=== PATIENT | male | born 1935 | race Caucasian/White ===

== ENCOUNTER 2016-10-17 13:42 | Inpatient (IN) | payer OTHER ==
--- NOTE | 2016-10-17 14:43 | PDOC ---
History of Present Illness - General Chief Complaint: Rectal Bleed Stated Complaint: RECTAL BLEEDING Time Seen by Provider: 10/17/16 14:12 History Source: Patient - History of Present Illness Timing/Duration: reports: constant Past History - Past Medical History Allergies/Adverse Reactions: Allergies Allergy/AdvReac Type Severity Reaction Status Date / Time No Known Allergies Allergy Verified 10/17/16 13:54 Home Medications: Ambulatory Orders Allopurinol [Zyloprim -] 100 mg PO BID 12/28/12 Chlorthalidone [Hygroton -] 25 mg PO BID 12/28/12 Dabigatran Etexilate Mesylate [Pradaxa -] 75 mg PO BID 12/28/12 Metoprolol Succinate [Toprol XL -] 25 mg PO BID 12/28/12 [place]-3 Acid Ethyl Esters [Lovaza -] 4,000 mg PO BID 12/28/12 Atenolol [Tenormin -] 25 mg PO BID 04/03/15 Anemia: No Asthma: No Cancer: Yes (SKIN, PROSTATE) Cardiac Disorders: Yes (ATRIAL FIBRILLATION) CVA: No COPD: No CHF: No Dementia: No Diabetes: No GI Disorders: No Disorders: Yes HTN: Yes Hypercholesterolemia: Yes Liver Disease: No Seizures: No Thyroid Disease: No - Surgical History Appendectomy: Yes Cholecystectomy: Yes - Psycho/Social/Smoking Cessation Hx Suicidal Ideation: No Smoking History: Former smoker Have you smoked in the past 12 months: No If you are a former smoker, when did you quit?: 20 YRS AGO Information on smoking cessation initiated: No Hx Alcohol Use: No Drug/Substance Use Hx: No Substance Use Type: None Review of Systems - Review of Systems Constitutional: No: Chills, Fever Respiratory: No: Shortness of Breath Cardiac (ROS): No: Palpitations ABD/GI: Yes: Blood Streaked Bowels. No: Constipated, Diarrhea, Nausea, Vomiting , Tarry Stools Neurological: No: Dizziness *Physical Exam - Vital Signs Last Vital Signs Temp Pulse Resp BP Pulse Ox 97.5 F L 69 20 91/54 99 10/17/16 13:55 10/17/16 13:55 10/17/16 13:55 10/17/16 13:55 10/17/16 13:55 - Physical Exam General Appearance: Yes: Appropriately Dressed. No: Apparent Distress HEENT: positive: Normal Voice Neck: positive: Supple Respiratory/Chest: positive: Lungs Clear, Normal Breath Sounds. negative: Respiratory Distress Cardiovascular: positive: Regular Rate, S1, S2 Gastrointestinal/Abdominal: positive: Soft, Other (BRBPR on exam, no large hemorrhoid). negative: Tender Extremity: positive: Normal Inspection Integumentary: positive: Dry, Warm Neurologic: positive: Fully Oriented, Alert, Normal Mood/Affect ED Treatment Course - LABORATORY CBC & Chemistry Diagram: 10/17/16 16:00 10/17/16 14:36 Medical Decision Making - Medical Decision Making 10/17/16 14:32 80-year-old male history of hypertension, GERD, pancreatic cyst, hemorrhoid complaining of bright red blood per rectum. Patient reports that since yesterday he has had constant bright red blood per rectum soiling his underwear. Suspects that bleeding could be coming from his hemorrhoid. Denies any rectal pain, swelling, or constipation. No dizziness, weakness, shortness of breath, fever, chills, nausea or vomiting. Patient states he has had GIB in the past, though not this severe. See exam GIB On pradaxa for afib Well maggy but hypotensive in ED w/ sig BRBPR on exam, no melena -[address] -IVF -labs including coag and T&S -GI c/s (known to Dr Marshall) -PMD -admit 10/17/16 15:42 HGB 8.9, baseline 12-13. Also had NAYANA w/ Cr of 3.3. Case discussed with , who states pt has diverticular disease and hemorrhoids. Recommend stopping Pradaxa, making patient NPO and transfusing 2 units of blood. Aware that patient's creatinine is 3.3, and so unable to get CTA. Aware that Dr Gates was made aware of pt and that pt admitted to MD. Dr Marshall to continue to follow as consult 10/17/16 16:01 INR>4. Confirmed with Dr Gates that pt is only on pradaxa and not on coumadin or any other AC. 10/17/16 18:01 Dr Marshall rec repeating INR prior to vit K. Pt enroute upstairs at this time. ED nurse contacted floor nurse w/ update *DC/Admit/Observation/Transfer Diagnosis at time of Disposition: GIB (gastrointestinal bleeding) Qualifiers: GI bleed type/associated pathology: unspecified gastrointestinal hemorrhage type Qualified Code(s): K92.2 - Gastrointestinal hemorrhage, unspecified ARF (acute renal failure) Qualifiers: Acute renal failure type: unspecified Qualified Code(s): N17.9 - Acute kidney failure, unspecified - Discharge Dispostion Condition at time of disposition: Fair Admit: Yes - Referrals
[2016-10-17 14:55] LABS: BASOPHIL 1.1 % (0-2.0); EOSINOPHIL 2.3 % (0-4.5); MCH 33.5 pg (25.7-33.7); MCHC 32.8 g/dl (32.0-35.9); MEAN CELL VOLUME 102.1 fl (80-96); MEAN PLT VOLUME 9.5 fl (7.5-11.1); NEUTROPHILS 69.3 % (42.8-82.8); PLATELET COUNT 142 K/MM3 (134-434); RDW 14.7 % (11.9-15.9); WHITE BLOOD COUNT 6.9 K/mm3 (4.0-10.0)
[2016-10-17] MEDS ORDERED: SODIUM CHLORIDE 500 ML IV STA ×2 (14:56→18:40)
[2016-10-17 15:22] LABS: ALBUMIN 3.2 g/dl (3.4-5.0); ALK PHOS 101 U/L (45-117); ANION GAP 10 (8-16); BILIRUBIN,TOTAL 0.9 mg/dL (0.2-1.0); CALCIUM 8.3 mg/dL (8.5-10.1); CO2 23 mmol/L (21-32); CREATININE 3.3 mg/dL (0.7-1.3); GLUCOSE,RANDOM 89 mg/dL (74-106); SGOT/AST 17 U/L (15-37); SGPT/ALT 22 U/L (12-78); TOT PROT 5.7 g/dl (6.4-8.2)
[2016-10-17 15:47] LABS: PROTHROMBIN TIME (PATIENT) 49.3 SEC (9.98-11.88)
[2016-10-17 15:51] LABS: INR 4.35 (0.82-1.09)
[2016-10-17 16:09] LABS: BASOPHIL 0.9 % (0-2.0); EOSINOPHIL 1.6 % (0-4.5); MCH 32.9 pg (25.7-33.7); MCHC 32.4 g/dl (32.0-35.9); MEAN CELL VOLUME 101.5 fl (80-96); MEAN PLT VOLUME 9.5 fl (7.5-11.1); NEUTROPHILS 71.7 % (42.8-82.8); PLATELET COUNT 144 K/MM3 (134-434); RDW 15.3 % (11.9-15.9); WHITE BLOOD COUNT 6.7 K/mm3 (4.0-10.0)
--- NOTE | 2016-10-17 16:14 | PDOC ---
*Physical Exam - Vital Signs Last Vital Signs Temp Pulse Resp BP Pulse Ox 97.5 F L 74 16 160/90 97 10/17/16 13:55 10/17/16 15:23 10/17/16 15:23 10/17/16 15:33 10/17/16 15:23 ED Treatment Course - LABORATORY CBC & Chemistry Diagram: 10/17/16 16:00 10/17/16 14:36 - ADDITIONAL ORDERS Additional order review: Laboratory Results 10/17/16 10/17/16 10/17/16 14:36 14:36 14:36 INR 4.35 H* D Sodium 145 Potassium 3.6 Chloride 112 H Carbon Dioxide 23 Anion Gap 10 BUN 34 H D Creatinine 3.3 H D Creat Clearance w eGFR 18.08 Random Glucose 89 Calcium 8.3 L Total Bilirubin 0.9 D AST 17 D ALT 22 D Alkaline Phosphatase 101 Total Protein 5.7 L Albumin 3.2 L Blood Type O POSITIVE Antibody Screen Negative Crossmatch See Detail 10/17/16 14:36 RBC 2.65 L D MCV 102.1 H MCHC 32.8 RDW 14.7 MPV 9.5 Neutrophils % 69.3 Lymphocytes % 19.9 Monocytes % 7.4 Eosinophils % 2.3 Basophils % 1.1 - Medications Given in the ED: ED Medications Discontinued Medications Generic Name Dose Route Start Last Admin Trade Name Freq PRN Reason Stop Dose Admin Sodium Chloride 500 mls @ 1,000 mls/hr 10/17/16 14:56 10/17/16 15:33 Normal Saline - IV 10/17/16 15:25 1,000 mls/hr ASDIR STA Administration Medical Decision Making - Medical Decision Making 10/17/16 18:38 Dr Marshall in ED, wants pt admitted to tele. BP 90s/50s, IVF and blood in progress *DC/Admit/Observation/Transfer Diagnosis at time of Disposition: GIB (gastrointestinal bleeding) Qualifiers: GI bleed type/associated pathology: unspecified gastrointestinal hemorrhage type Qualified Code(s): K92.2 - Gastrointestinal hemorrhage, unspecified ARF (acute renal failure) Qualifiers: Acute renal failure type: unspecified Qualified Code(s): N17.9 - Acute kidney failure, unspecified - Discharge Dispostion Condition at time of disposition: Fair Admit: Yes Decision to Admit order Date/Time: Decision to Admit Order Category Date Time Status Decision to Admit to Hospital Routine Admission 10/17/16 15:46 Active - Referrals - Patient Instructions - Post Discharge Activity
[2016-10-17] MEDS ORDERED: PHYTONADIONE 10 MG/1 ML AMP IVPB ONE (17:34)
[2016-10-17 17:49] LABS: PLATELET ESTIMATE SLT DECREASED (NORMAL)
--- NOTE | 2016-10-17 18:58 | CON.GI ---
Consult Consult Specialty:: GASTROENTEROLOGY Referred by:: ER Reason for Consultation:: RECTAL BLEEDING - History of Present Illness Chief Complaint: RECTAL BLEEDING History of Present Illness: 80 YEAR OLD MALE WITH HISTORY OF COLON POLYPS, SEVERE DIVERTICULOSIS AND IPMN OF THE PANCREAS WHO HAS HAD MULTIPLE COLONOSCOPIES AND GOOS SURVEILLANCE ADMITTED WITH RECTAL BLEEDING. HE WAS MILDLY HYPOTENSIVE IN THE ED BUT THIS RESOLVED QUICKLY WITH FLUID AND PRBC'S. HE DENIES ANY VOMITING OF BLOOD, OR ABDOMINAL PAIN. HIS SON STATES THAT HE HAS BEEN BLEEDING FOR ABOUT 7 DAYS ON AND OFF . SON STATES THAT LATELY HE HAS BEEN A BIT CONFUSED AT TIMES. THIS IS NEW. I SAW JOSE JUAN IN FEBRUARY OF 2016 AND HE WAS ALERT AND APPROPRIATE. HE IS ON PRADAXA FOR AFIB. HE IS NOT ON COUMADIN. HIS INR WAS 4.35. REPEAT IS PENDING. HIS COLONOSCOPY REVEALED POLYPS IN THE PAST. HE HAS SEVERE WIDE MOUTH DIVERTICULOSIS IN THE LEFT COLON AND LARGE INTERNAL HEMORRHOIDS. PATIENT WAS SEEN HE WAS BEING TRANSFERRED TO A GENERAL MEDICAL FLOOR. I HAVE ASKED THAT HE BE TRANSFERRED TO A MONITORED SETTING. - History Source History Provided By: Patient, Family Member Limitations to Obtaining History: Clinical Condition - Past Medical History Cardio/Vascular: Yes: AFIB Pulmonary: Yes: COPD Gastrointestinal: Yes: Diverticulosis, Other (IPMN PANCREAS) Renal/: Yes: Renal Inusuff Musculoskeletal: Yes: Osteoarthritis Rheumatology: Yes: Gout - Alcohol/Substance Use Hx Alcohol Use: No - Smoking History Smoking history: Former smoker Have you smoked in the past 12 months: No If you are a former smoker, when did you quit?: 20 YRS AGO Home Medications - Allergies Allergies/Adverse Reactions: Allergies Allergy/AdvReac Type Severity Reaction Status Date / Time No Known Allergies Allergy Verified 10/17/16 13:54 - Home Medications Home Medications: Ambulatory Orders Allopurinol [Zyloprim -] 100 mg PO BID 12/28/12 Chlorthalidone [Hygroton -] 25 mg PO BID 12/28/12 Dabigatran Etexilate Mesylate [Pradaxa -] 75 mg PO BID 12/28/12 Metoprolol Succinate [Toprol XL -] 25 mg PO BID 12/28/12 [place]-3 Acid Ethyl Esters [Lovaza -] 4,000 mg PO BID 12/28/12 Atenolol [Tenormin -] 25 mg PO BID 04/03/15 Family Disease History - Family Disease History Family Disease History: CA: Mother (PANCREAS) Review of Systems - Review of Systems Constitutional: reports: No Symptoms Eyes: reports: No Symptoms HENT: reports: No Symptoms Neck: reports: No Symptoms Cardiovascular: reports: No Symptoms Respiratory: reports: No Symptoms Gastrointestinal: reports: Rectal Bleeding Genitourinary: reports: No Symptoms Breasts: reports: No Symptoms Reported Musculoskeletal: reports: No Symptoms Integumentary: reports: No Symptoms Neurological: reports: No Symptoms Endocrine: reports: No Symptoms Hematology/Lymphatic: reports: No Symptoms Psychiatric: reports: No Symptoms Physical Exam-GI Vital Signs: Vital Signs Temperature 97.4 F L 10/17/16 17:38 Pulse Rate 73 10/17/16 17:38 Respiratory Rate 16 10/17/16 17:38 Blood Pressure 92/55 10/17/16 17:38 O2 Sat by Pulse Oximetry (%) 99 10/17/16 17:38 Constitutional: Yes: Well Nourished, Calm Eyes: Yes: Conjunctiva Clear HENT: Yes: Normocephalic Neck: Yes: Supple Gastrointestinal Inspection: Yes: WNL ...Auscultate: Yes: Normoactive Bowel Sounds ...Palpate: Yes: Soft ...Rectal Exam: Yes: Guaiac Positive, Other (MAROON STOOL) Extremities: Yes: WNL Neurological: Yes: Alert, Oriented, Other (NEW FORGETFULLNESS) Labs: CBC, BMP 10/17/16 16:00 INR, PTT INR 4.35 (0.82-1.09) H* D 10/17/16 14:36 Problem List - Problems (1) Diverticular hemorrhage Assessment/Plan: PROBABLE DIVERTICULAR BLEEDING. HOPEFULLY WILL STOP ON ITS OWN DOES MOST OF THESE DIVERTICULAR BLEEDS. REPEAT INR AND IF STILL ELEVATED GIVE VIT K AND ONE UNIT FFP. TRANSFUSE TO HGB OF GREATER THAN OR EQUAL TO 9. NPO FOR NOW. HOLD PRADAXA. CARDIOLOGY CONSULT AND PMD HAS BEEN NOTIFIED. SEND TO MONITORED SETTING. DR MIX COVERING FOR ME UNTIL THURSDAY. [place] CRUZ MD Code(s): K57.31 - DVRTCLOS OF LG INT W/O PERFORATION OR ABSCESS W BLEEDING (2) GIB (gastrointestinal bleeding) Code(s): K92.2 - GASTROINTESTINAL HEMORRHAGE, UNSPECIFIED Qualifiers: GI bleed type/associated pathology: unspecified gastrointestinal hemorrhage type Qualified Code(s): K92.2 - Gastrointestinal hemorrhage, unspecified (3) ARF (acute renal failure) Code(s): N17.9 - ACUTE KIDNEY FAILURE, UNSPECIFIED Qualifiers: Acute renal failure type: unspecified Qualified Code(s): N17.9 - Acute kidney failure, unspecified (4) Afib Code(s): I48.91 - UNSPECIFIED ATRIAL FIBRILLATION
[2016-10-17 19:22] LABS: PROTHROMBIN TIME (PATIENT) 46.7 SEC (9.98-11.88)
[2016-10-17 19:28] LABS: INR 4.12 (0.82-1.09)
[2016-10-17 19:47] LABS: TROPONIN I < 0.02 ng/ml (0.00-0.05)
[2016-10-17] MEDS ORDERED: PHYTONADIONE 10 MG/1 ML AMP ONE (19:51)
[2016-10-17 21:42] LABS: BASOPHIL 0.8 % (0-2.0); EOSINOPHIL 1.7 % (0-4.5); MCH 32.3 pg (25.7-33.7); MCHC 32.9 g/dl (32.0-35.9); MEAN CELL VOLUME 98.1 fl (80-96); MEAN PLT VOLUME 9.2 fl (7.5-11.1); NEUTROPHILS 65.2 % (42.8-82.8); PLATELET COUNT 141 K/MM3 (134-434); WHITE BLOOD COUNT 6.6 K/mm3 (4.0-10.0)
[2016-10-18] MEDS ORDERED: PANTOPRAZOLE SODIUM 40 MG in SODIUM CHLORIDE 100 ML IVPB ONE (00:13)
[2016-10-18] MEDS ORDERED: PANTOPRAZOLE SODIUM 100 ML IVPB ONE (00:14)
[2016-10-18 06:33] LABS: MCH 32.2 pg (25.7-33.7); MCHC 33.2 g/dl (32.0-35.9); MEAN CELL VOLUME 97.2 fl (80-96); PLATELET COUNT 134 K/MM3 (134-434); RDW 17.4 % (11.9-15.9); WHITE BLOOD COUNT 6.8 K/mm3 (4.0-10.0)
[2016-10-18 06:47] LABS: INR 3.44 (0.82-1.09); PROTHROMBIN TIME (PATIENT) 38.8 SEC (9.98-11.88)
[2016-10-18 06:57] LABS: ALK PHOS 96 U/L (45-117); ANION GAP 8 (8-16); BILIRUBIN,TOTAL 1.4 mg/dL (0.2-1.0); CALCIUM 8.3 mg/dL (8.5-10.1); CO2 21 mmol/L (21-32); CREATININE 2.9 mg/dL (0.7-1.3); GLUCOSE,RANDOM 89 mg/dL (74-106); SGOT/AST 14 U/L (15-37); SGPT/ALT 20 U/L (12-78); TOT PROT 5.5 g/dl (6.4-8.2)
[2016-10-18] MEDS: METOPROLOL TARTRATE 25 MG TABLET (FP) PO SCH ×2 (10:29→21:01)
--- NOTE | 2016-10-18 14:37 | PN ---
GI Progress Note Subjective: GI F/U NOTE FOR DR CRUZ PT SEEN IN ER WITH SON AT BEDSIDE NO BLEEDING OVERNIGHT AND NONE TODAY WELL NO BM X 3 DAYS NO PAIN/N/F/C/S/V FEELS HUNGRY GOT PRBC'S YESTERDAY AWAITING TELE BED - Objective Vital Signs: Vital Signs Temperature 97.9 F 10/18/16 06:45 Pulse Rate 92 H 10/18/16 12:33 Respiratory Rate 18 10/18/16 12:33 Blood Pressure 118/86 10/18/16 12:33 O2 Sat by Pulse Oximetry (%) 97 10/18/16 12:33 Constitutional: Well Nourished, No Distress, Calm Eyes: Yes: WNL HENT: Yes: WNL (+BS/ SOFT/NT NO M/R/G) Labs: CBC, BMP 10/18/16 06:16 10/18/16 06:16 INR, PTT INR 3.44 (0.82-1.09) H 10/18/16 06:16 Assessment/Plan 80 M WITH [employer] PROBLEMS ADMIT WITH HEMATOCHEZIA OVER 1 WEEK ON A/C WITH PRADAXA SON REPORTS LARGE SCALE BLEEDING HX OF PROFOUND DIVERTICULAR DISEASE AND COLON POLYPS HAD COLON LAST 1 YEAR AGO NOW, BLEED CLINICALLY RESOLVED NO BRBPR X 16 HOURS HGB STABLE AND IMPROVED OFF A/C SUSPECT DIVERTIC BLEEDING START CLEARS AND OBSERVE F/U H/H IF STABLE, ADVANCE DIET SLOWLY MD DOMINGUEZ
--- NOTE | 2016-10-18 16:26 | CON.CARD ---
Consult Consult Specialty:: Cardiology Referred by:: Dr. Gates Reason for Consultation:: Cardiac evaluation - History of Present Illness Chief Complaint: GI bleed History of Present Illness: Patient is an 80 year old male with underlying history of hypertension, GERD, CODP, pancreatic cyst, history of diverticulosis and persistent atrial fibrillation on Pradaxa and failed synchronized cardioversion who presents with bright blood per rectum soiling his underwear and pants. He has history of hemorrhoids. He denies chest pain, SOB or palpitations. He denies paroxysmal nocturnal dyspnea or orthopnea. He denies fever or chills. He denies headache or lightheadedness. He denies nausea, vomiting, diarrhea or abdominal pain. Cardiology consultation was called for further evaluation. - History Source History Provided By: Patient, Family Member Limitations to Obtaining History: No Limitations - Past Medical History Cardio/Vascular: Yes: AFIB, HTN Pulmonary: Yes: COPD Gastrointestinal: Yes: Diverticulosis, Other (IPMN PANCREAS) Renal/: Yes: Renal Inusuff Musculoskeletal: Yes: Osteoarthritis Rheumatology: Yes: Gout - Alcohol/Substance Use Hx Alcohol Use: No - Smoking History Smoking history: Former smoker Have you smoked in the past 12 months: No If you are a former smoker, when did you quit?: 20 YRS AGO Home Medications - Allergies Allergies/Adverse Reactions: Allergies Allergy/AdvReac Type Severity Reaction Status Date / Time No Known Allergies Allergy Verified 10/17/16 13:54 - Home Medications Home Medications: Ambulatory Orders Allopurinol [Zyloprim -] 100 mg PO BID 12/28/12 Chlorthalidone [Hygroton -] 25 mg PO BID 12/28/12 Dabigatran Etexilate Mesylate [Pradaxa -] 75 mg PO BID 12/28/12 Metoprolol Succinate [Toprol XL -] 25 mg PO BID 12/28/12 [place]-3 Acid Ethyl Esters [Lovaza -] 4,000 mg PO BID 12/28/12 Atenolol [Tenormin -] 25 mg PO BID 04/03/15 Family Disease History - Family Disease History Family Disease History: CA: Mother (PANCREAS) Review of Systems - Review of Systems Constitutional: denies: Chills, Fever Cardiovascular: denies: Chest Pain, Palpitations, Shortness of Breath Respiratory: denies: Cough, Hemoptysis, Orthopnea, PND, SOB, SOB on Exertion Gastrointestinal: reports: Rectal Bleeding. denies: Abdominal Pain, Constipation, Diarrhea, Melena, Nausea, Vomiting Neurological: denies: Dizziness, Headache, Seizure, Syncope Vital Signs: Vital Signs Temperature 97.9 F 10/18/16 06:45 Pulse Rate 92 H 10/18/16 12:33 Respiratory Rate 18 10/18/16 12:33 Blood Pressure 118/86 10/18/16 12:33 O2 Sat by Pulse Oximetry (%) 97 10/18/16 12:33 Neck: Yes: Supple Respiratory: Yes: CTA Bilaterally Gastrointestinal: Yes: Normal Bowel Sounds, Soft. No: Tenderness Cardiovascular: Yes: Pulse Irregular JVD: No Carotid Bruit: No PMI: Non-Displaced Heart Sounds: Yes: S1, S2 Murmur: Yes: Systolic Murmur, Grade 1 Edema: No - Other Data Labs, Other Data: CBC, BMP 10/18/16 06:16 10/18/16 06:16 INR, PTT INR 3.44 (0.82-1.09) H 10/18/16 06:16 Troponin, BNP 10/17/16 18:30 Troponin I < 0.02 Atrial fibrillation Assessment/Plan 1. Rectal bleed with underlying history of diverticular disease and hemorrhoids and polyps 2. Persistent atrial fibrillation on NOAC 3. Hypertension 4. COPD 5. CKD PLAN: 1. Pradaxa held for now. Further decision is to follow 2. Continue Metoprolol 3. Follow H/H. Transfuse PRBC as needed 4. GI input noted Further plans are to follow Ras Cleveland MD
[2016-10-18 18:04] VITALS: BMI 23.0
[2016-10-18 19:32] LABS: URINE APPEARANCE CLEAR; URINE BILIRUBIN NEGATIVE (NEGATIVE); URINE COLOR LTYELLOW; URINE GLUCOSE (UA) NEGATIVE (NEGATIVE); URINE KETONE NEGATIVE (NEGATIVE); URINE LEUK ESTERASE NEGATIVE (NEGATIVE); URINE NITRITE NEGATIVE (NEGATIVE); URINE PROTEIN NEGATIVE (NEGATIVE); URINE UROBILINOGEN NEGATIVE E.U./dl (0.2-1.0)
[2016-10-18 19:34] LABS: URINE BLOOD 3+ (NEGATIVE)
[2016-10-18 19:35] LABS: URINE HYALINE CAST 1 /lpf; URINE MUCUS RARE; URINE RBC 49 /hpf (0-3); URINE WBC 3 /hpf (3-5)
[2016-10-18] MEDS ORDERED: PHYTONADIONE 5 MG TABLET PO ONE (20:00)
[2016-10-18] MEDS: BACITRACIN 15 GM TUBE TOPICAL OINTMENT TP SCH (21:01)
--- NOTE | 2016-10-18 22:26 | HP ---
Admitting History and Physical - Primary Care Physician PCP: Neville Gates - Admission Chief Complaint: Bleeing from rectum since yesterday. History of Present Illness: Pt states that started to bleed per rectum since yesterday and came to ER; pt w/ o abd pain, N, V, nose bleed. Pt w/o fever, chills, cough, dysuria. Pt was seen in AM in ER, pt's son is at bed side. History Source: Patient - Past Medical History Cardiovascular: Yes: AFIB (on AC) Pulmonary: Yes: COPD Gastrointestinal: Yes: Diverticulosis, Other (IPMN PANCREAS) Renal/: Yes: Renal Inusuff Musculoskeletal: Yes: Osteoarthritis Rheumatology: Yes: Gout - Smoking History Smoking history: Former smoker Have you smoked in the past 12 months: No If you are a former smoker, when did you quit?: 20 YRS AGO - Alcohol/Substance Use Hx Alcohol Use: No Home Medications - Allergies Allergies/Adverse Reactions: Allergies Allergy/AdvReac Type Severity Reaction Status Date / Time No Known Allergies Allergy Verified 10/17/16 13:54 - Home Medications Home Medications: Ambulatory Orders Allopurinol [Zyloprim -] 100 mg PO BID 12/28/12 Chlorthalidone [Hygroton -] 25 mg PO BID 12/28/12 Dabigatran Etexilate Mesylate [Pradaxa -] 75 mg PO BID 12/28/12 Metoprolol Succinate [Toprol XL -] 25 mg PO BID 12/28/12 [place]-3 Acid Ethyl Esters [Lovaza -] 4,000 mg PO BID 12/28/12 Atenolol [Tenormin -] 25 mg PO BID 04/03/15 Family Disease History - Family Disease History Family Disease History: CA: Mother (PANCREAS) Review of Systems - Review of Systems Constitutional: denies: Chills, Fever Eyes: denies: Blurred Vision, Double Vision HENT: denies: Difficult Swallowing, Ear Discharge, Ear Pain, Throat Pain Cardiovascular: denies: Chest Pain, Edema, Palpitations, Shortness of Breath Respiratory: denies: Cough, SOB, Wheezing Gastrointestinal: denies: Abdominal Pain, Nausea, Vomiting Genitourinary: reports: Discharge. denies: Burning, Dysuria, Flank Pain Musculoskeletal: denies: Back Pain, Joint Swelling Neurological: denies: Change in LOC, Change in Speech, Confusion, Numbness Endocrine: denies: Excessive Sweating, Intolerance to Cold Physical Examination Vital Signs: Vital Signs Temperature 98.4 F 10/18/16 17:58 Pulse Rate 100 H 10/18/16 17:58 Respiratory Rate 18 10/18/16 18:11 Blood Pressure 126/69 10/18/16 17:58 O2 Sat by Pulse Oximetry (%) 96 10/18/16 18:11 Constitutional: Yes: No Distress, Calm Eyes: Yes: Conjunctiva Clear, EOM Intact, PERRL HENT: No: Epistaxis, Rhinnorhea Neck: No: Trachea Midline, Lymphadenopathy Cardiovascular: Yes: Regular Rate and Rhythm, S1, S2 Respiratory: Yes: Regular, CTA Bilaterally. No: Rales Gastrointestinal: Yes: Normal Bowel Sounds, Soft. No: Tenderness ...Rectal Exam: Yes: Deferred Renal/: No: CVA Tenderness - Left, CVA Tenderness - Right Musculoskeletal: No: Back Pain, Joint Stiffness, Joint Swelling Edema: No Integumentary: No: Jaundice, Rash Neurological: Yes: Alert, Oriented Psychiatric: Yes: Alert, Oriented Labs: CBC, BMP 10/18/16 06:16 10/18/16 06:16 Problem List - Problems (1) Afib Code(s): I48.91 - UNSPECIFIED ATRIAL FIBRILLATION (2) GIB (gastrointestinal bleeding) Code(s): K92.2 - GASTROINTESTINAL HEMORRHAGE, UNSPECIFIED Qualifiers: GI bleed type/associated pathology: unspecified gastrointestinal hemorrhage type Qualified Code(s): K92.2 - Gastrointestinal hemorrhage, unspecified (3) Acute on chronic renal failure Code(s): N17.9 - ACUTE KIDNEY FAILURE, UNSPECIFIED N18.9 - CHRONIC KIDNEY DISEASE, UNSPECIFIED (4) Diverticulosis Code(s): K57.90 - DVRTCLOS OF INTEST, PART UNSP, W/O PERF OR ABSCESS W/O BLEED (5) Hypertension Code(s): I10 - ESSENTIAL (PRIMARY) HYPERTENSION Assessment/Plan AC on hold GI consult appreciated Cardio consult To f/u H/H; pt might need PRBC, Vit K AM labs
[2016-10-19 07:31] LABS: BASOPHIL 1.2 % (0-2.0); EOSINOPHIL 3.7 % (0-4.5); MCH 32.6 pg (25.7-33.7); MCHC 33.8 g/dl (32.0-35.9); MEAN CELL VOLUME 96.5 fl (80-96); MEAN PLT VOLUME 9.3 fl (7.5-11.1); NEUTROPHILS 62.6 % (42.8-82.8); PLATELET COUNT 132 K/MM3 (134-434); RDW 17.6 % (11.9-15.9); WHITE BLOOD COUNT 6.7 K/mm3 (4.0-10.0)
--- NOTE | 2016-10-19 08:27 | CONSULT ---
Consult - text type - Consultation Consultation Note: Renal Consult for NAYANA on CKD This is a 80 year old Gentleman with PMhx of CKD stage 3 (b/l Cr 1.8), Afib on pradaxa, Hypertension, Diverticulosis, Pancreatic Cyst who presented with rectal bleed and found to have acute anemia in setting of GI bleed and NAYANA with BUN/Cr of 34/3.3. Pt states that he was bleeding for 1 day but was not feeling well for several days. Denies any NSAID use, no recent contrast exposure, no recent Abx use, no flank pain, rash, fever, chills, N/V/D. Pt did have kidney stones in the past, last episode was 1 year ago. No confusion, lethargy or weakness. s/p RPBC transfusion yesterday. PMhx: as above Allergies: NKDA Family Hx: NC Social Hx: + smoker, + ETOH use ROS: as per HPI, all other pertinent ros negative Home Meds: Home Medications Medication Instructions Recorded Allopurinol [Zyloprim -] 100 mg PO BID 12/28/12 Chlorthalidone [Hygroton -] 25 mg PO BID 12/28/12 Dabigatran Etexilate Mesylate 75 mg PO BID 12/28/12 [Pradaxa -] Metoprolol Succinate [Toprol XL -] 25 mg PO BID 12/28/12 [place]-3 Acid Ethyl Esters [Lovaza 4,000 mg PO BID 12/28/12 -] Atenolol [Tenormin -] 25 mg PO BID 04/03/15 Vital Signs Temperature 98.2 F 10/19/16 06:00 Pulse Rate 102 H 10/19/16 06:00 Respiratory Rate 18 10/19/16 06:00 Blood Pressure 112/71 10/19/16 06:00 O2 Sat by Pulse Oximetry (%) 98 10/18/16 21:00 Intake & Output 10/16/16 10/17/16 10/18/16 10/19/16 23:59 23:59 23:59 23:59 Intake Total 500 300 200 Balance 500 300 200 Weight 220 lb 170 lb Gen: NAD, awake and alert HEENT: NC/AT, MMM, No JVD CVS: RRR, No M/R Lungs: CTA, no rales or wheeze Abd: soft NT/ND Ext: No edema, clubbing or cyanosis : No bladder distension Neuro: AAOx3, no focal defects CBC, BMP 10/19/16 06:25 Laboratory Tests 10/18/16 06:16 Sodium 145 Potassium 3.9 Chloride 116 H Carbon Dioxide 21 Anion Gap 8 BUN 32 H Creatinine 2.9 H Creat Clearance w eGFR 20.99 Total Bilirubin 1.4 H D AST 14 L Albumin 3.0 L Current Medications Bacitracin (Bacitracin -) 1 applic TP BID [facility] Last Admin: 10/18/16 21:01 Dose: 1 applic Metoprolol Tartrate (Lopressor -) 25 mg PO BID [facility] Last Admin: 10/18/16 21:01 Dose: 25 mg Pantoprazole Sodium (Protonix 40mg Ivpb (Pre-Docked)) 40 mg IVPB DAILY [facility] A/P 80 year old Gentleman with PMhx of CKD stage 3 (b/l Cr 1.8), Afib on pradaxa, Hypertension, Diverticulosis, Pancreatic Cyst who presented with rectal bleed and found to have acute anemia in setting of GI bleed and NAYANA with BUN/Cr of 34/ 3.3. #Non-oliguric NAYANA on CKD stage 3 Etiology likely renal hypoperfusion in setting of anemia and hypotension and diuretic use vs allopurinol related injury (less likely) FeUrea was 31.89% indicating preserved tubular function pt without any significant proteinuria Check renal US to r/o obstruction Start isotonic saline at 83cc per hour x 24 hours trend BUN/Cr Dose all meds for Cr Cl less then 20 avoid RUBY/ARB, IV contrast and other nephrotoxins #GI bleed mangement as per GI avoid phosphate based enemas as part of any bowel prep Transfuse as needed #Afib on pradaxa cardiology following off A/C #Hypertension BP at goal on metoprolol avoid hypotension in this patient #Anemia transfuse as needed Thank you will Follow Bismark Grier DO
[2016-10-19] MEDS ORDERED: SODIUM CHLORIDE 1,000 ML IV SCH ×2 (08:45→23:00)
[2016-10-19 09:01] LABS: ANION GAP 10 (8-16); BILIRUBIN,TOTAL 1.4 mg/dL (0.2-1.0); CALCIUM 8.2 mg/dL (8.5-10.1); CO2 21 mmol/L (21-32); CREATININE 2.4 mg/dL (0.7-1.3); GLUCOSE,RANDOM 72 mg/dL (74-106); MAGNESIUM 2.1 mg/dL (1.8-2.4); PHOSPHOROUS 3.5 mg/dL (2.5-4.9); SGOT/AST 22 U/L (15-37); SGPT/ALT 21 U/L (12-78); TOT PROT 5.2 g/dl (6.4-8.2)
[2016-10-19 09:02] LABS: ALK PHOS 102 U/L (45-117)
[2016-10-19] MEDS: PANTOPRAZOLE SODIUM 40 MG/100 ML PRE-DOCKED IVPB SCH (09:39)
[2016-10-19] MEDS: BACITRACIN 15 GM TUBE TOPICAL OINTMENT TP SCH ×2 (09:39→21:33)
[2016-10-19] MEDS: METOPROLOL TARTRATE 25 MG TABLET (FP) PO SCH ×2 (09:39→21:33)
--- NOTE | 2016-10-19 09:47 | PN ---
Progress Note, Physician Chief Complaint: Not in distress this am History of Present Illness: Patient was seen and examined. Awake and alert. Chart was reviewed Denies chest pain, SOB or palpitations - Current Medication List Current Medications: Active Medications Bacitracin (Bacitracin -) 1 applic TP BID [facility] Last Admin: 10/19/16 09:39 Dose: 1 applic Sodium Chloride (Normal Saline -) 1,000 mls @ 83 mls/hr IV ASDIR [facility] Last Admin: 10/19/16 09:38 Dose: 83 mls/hr Metoprolol Tartrate (Lopressor -) 25 mg PO BID [facility] Last Admin: 10/19/16 09:39 Dose: 25 mg Pantoprazole Sodium (Protonix 40mg Ivpb (Pre-Docked)) 40 mg IVPB DAILY [facility] Last Admin: 10/19/16 09:39 Dose: 40 mg - Objective Vital Signs: Vital Signs Temperature 98.2 F 10/19/16 06:00 Pulse Rate 102 H 10/19/16 06:00 Respiratory Rate 18 10/19/16 06:00 Blood Pressure 112/71 10/19/16 06:00 O2 Sat by Pulse Oximetry (%) 98 10/18/16 21:00 Neck: Yes: Supple Cardiovascular: Yes: Pulse Irregular, S1, S2 Respiratory: Yes: CTA Bilaterally Gastrointestinal: Yes: Normal Bowel Sounds, Soft. No: Tenderness Edema: No Additional Findings/Remarks: - Review of Systems Constitutional: denies: Chills, Fever Cardiovascular: denies: Chest Pain, Palpitations, Shortness of Breath Respiratory: denies: Cough, Hemoptysis, Orthopnea, PND, SOB, SOB on Exertion Gastrointestinal: reports: Rectal Bleeding. denies: Abdominal Pain, Constipation, Diarrhea, Melena, Nausea, Vomiting Neurological: denies: Dizziness, Headache, Seizure, Syncope Labs: CBC, BMP 10/19/16 06:25 10/19/16 06:25 INR, PTT INR 3.44 (0.82-1.09) H 10/18/16 06:16 Problem List - Problems (1) Acute on chronic renal failure Code(s): N17.9 - ACUTE KIDNEY FAILURE, UNSPECIFIED N18.9 - CHRONIC KIDNEY DISEASE, UNSPECIFIED (2) Afib Code(s): I48.91 - UNSPECIFIED ATRIAL FIBRILLATION Qualifiers: Atrial fibrillation type: persistent Qualified Code(s): I48.1 - Persistent atrial fibrillation (3) Diverticular hemorrhage Code(s): K57.31 - DVRTCLOS OF LG INT W/O PERFORATION OR ABSCESS W BLEEDING (4) GIB (gastrointestinal bleeding) Code(s): K92.2 - GASTROINTESTINAL HEMORRHAGE, UNSPECIFIED Qualifiers: GI bleed type/associated pathology: unspecified gastrointestinal hemorrhage type Qualified Code(s): K92.2 - Gastrointestinal hemorrhage, unspecified (5) Hypertension Code(s): I10 - ESSENTIAL (PRIMARY) HYPERTENSION Qualifiers: Hypertension type: essential hypertension Qualified Code(s): I10 - Essential (primary) hypertension Assessment/Plan 1. Rectal bleed with underlying history of diverticular disease and hemorrhoids and polyps 2. Persistent atrial fibrillation on NOAC - [id number] score of 3-4 3. Hypertension 4. COPD 5. CKD PLAN: 1. Pradaxa held for now. Further decision is to follow. Ideally will need to restart perhaps Eliquis 2.5 mg BID (age > 80 and cr > 1.5) 2. Continue Metoprolol 3. Follow H/H. Transfuse PRBC as needed - so far stable 4. GI follow up Further plans are to follow Ras Cleveland MD
--- NOTE | 2016-10-19 14:10 | PN ---
Progress Note, Physician History of Present Illness: Pt w/o SOB, CP, palp, abd pain, rectal bleed. Pt with hallucinations; pt's family at bed side, states that he has it for a least couple of weeks, on and off. - Current Medication List Current Medications: Active Medications Bacitracin (Bacitracin -) 1 applic TP BID [facility] Last Admin: 10/19/16 09:39 Dose: 1 applic Sodium Chloride (Normal Saline -) 1,000 mls @ 83 mls/hr IV ASDIR [facility] Last Admin: 10/19/16 09:38 Dose: 83 mls/hr Metoprolol Tartrate (Lopressor -) 25 mg PO BID [facility] Last Admin: 10/19/16 09:39 Dose: 25 mg Pantoprazole Sodium (Protonix 40mg Ivpb (Pre-Docked)) 40 mg IVPB DAILY [facility] Last Admin: 10/19/16 09:39 Dose: 40 mg - Objective Vital Signs: Vital Signs Temperature 98.0 F 10/19/16 09:44 Pulse Rate 104 H 10/19/16 09:44 Respiratory Rate 19 10/19/16 09:44 Blood Pressure 111/64 10/19/16 09:44 O2 Sat by Pulse Oximetry (%) 98 10/18/16 21:00 Constitutional: Yes: No Distress, Calm Neck: Yes: Tenderness Cardiovascular: Yes: Pulse Irregular, S1, S2 Respiratory: Yes: Regular, CTA Bilaterally Gastrointestinal: Yes: Normal Bowel Sounds, Soft. No: Palpable Mass, Tenderness Edema: No Neurological: Yes: Alert, Oriented (to place, familly. Pt is confused about the reason that brought him to ER, even when explained/ oriented), Cran Nerves II- XII Intact. No: Facial Droop Labs: CBC, BMP 10/19/16 06:25 10/19/16 06:25 INR, PTT INR 3.44 (0.82-1.09) H 10/18/16 06:16 Problem List - Problems (1) GIB (gastrointestinal bleeding) Code(s): K92.2 - GASTROINTESTINAL HEMORRHAGE, UNSPECIFIED Qualifiers: GI bleed type/associated pathology: unspecified gastrointestinal hemorrhage type Qualified Code(s): K92.2 - Gastrointestinal hemorrhage, unspecified (2) Acute on chronic renal failure Code(s): N17.9 - ACUTE KIDNEY FAILURE, UNSPECIFIED N18.9 - CHRONIC KIDNEY DISEASE, UNSPECIFIED (3) Afib Code(s): I48.91 - UNSPECIFIED ATRIAL FIBRILLATION Qualifiers: Atrial fibrillation type: persistent Qualified Code(s): I48.1 - Persistent atrial fibrillation (4) Diverticulosis Code(s): K57.90 - DVRTCLOS OF INTEST, PART UNSP, W/O PERF OR ABSCESS W/O BLEED (5) Hypertension Code(s): I10 - ESSENTIAL (PRIMARY) HYPERTENSION Qualifiers: Hypertension type: essential hypertension Qualified Code(s): I10 - Essential (primary) hypertension (6) Altered mental status Code(s): R41.82 - ALTERED MENTAL STATUS, UNSPECIFIED Qualifiers: Altered mental status type: disorientation Qualified Code(s): R41.0 - Disorientation, unspecified (7) Hallucinations Code(s): R44.3 - HALLUCINATIONS, UNSPECIFIED Assessment/Plan AC on hold GI consult appreciated Cardio consult appreciated To f/u H/H; pt received 2 unit PRBC, 1 unit FFP, 2.5 mg zina K (PO). Neuro consult Phychiatry Consult Head CT scan- to R/O CVA Case was reviewed with family, all questions were answered. AM labs
--- NOTE | 2016-10-19 14:53 | PN ---
GI Progress Note Subjective: GI F/U FOR DR CRUZ: PT DOWN IN CT SCAN OF BRAIN BY REPORT OF NURSE: NO FURTHER BLEEDING NO C/O NO BRBPR TOLERATING CLEARS - Objective Vital Signs: Vital Signs Temperature 97.9 F 10/19/16 14:42 Pulse Rate 79 10/19/16 14:42 Respiratory Rate 18 10/19/16 14:42 Blood Pressure 118/72 10/19/16 14:42 O2 Sat by Pulse Oximetry (%) 95 10/19/16 09:00 Labs: CBC, BMP 10/19/16 06:25 10/19/16 06:25 INR, PTT INR 3.44 (0.82-1.09) H 10/18/16 06:16 Assessment/Plan ACUTE HEMATOCHEZIA/LGIB----. PRESUMED DIVERTICULAR CLINICALLY RESOLVED HGB STABLE AND UP TO 10 ADVANCE DIET/ OBSERVE F/U H/H IN AM DR CRUZ TO F/U 10/20 MD DOMINGUEZ
[2016-10-20 08:19] LABS: MCH 33.1 pg (25.7-33.7); MEAN CELL VOLUME 97.3 fl (80-96); MEAN PLT VOLUME 9.5 fl (7.5-11.1); PLATELET COUNT 128 K/MM3 (134-434); RDW 17.1 % (11.9-15.9); WHITE BLOOD COUNT 6.7 K/mm3 (4.0-10.0)
[2016-10-20 08:20] LABS: MCH 33.2 pg (25.7-33.7); MCHC 34.3 g/dl (32.0-35.9); MEAN CELL VOLUME 96.5 fl (80-96); MEAN PLT VOLUME 9.2 fl (7.5-11.1); NEUTROPHILS 63.5 % (42.8-82.8); PLATELET COUNT 130 K/MM3 (134-434); WHITE BLOOD COUNT 6.6 K/mm3 (4.0-10.0)
[2016-10-20 08:27] LABS: INR 1.59 (0.82-1.09); PROTHROMBIN TIME (PATIENT) 17.7 SEC (9.98-11.88)
[2016-10-20 08:53] LABS: ALBUMIN 2.7 g/dl (3.4-5.0); ANION GAP 9 (8-16); CALCIUM 8.2 mg/dL (8.5-10.1); CO2 23 mmol/L (21-32); GLUCOSE,RANDOM 79 mg/dL (74-106); PHOSPHOROUS 3.1 mg/dL (2.5-4.9); SGOT/AST 18 U/L (15-37)
[2016-10-20 08:57] LABS: ALK PHOS 92 U/L (45-117); CREATININE 1.9 mg/dL (0.7-1.3); SGPT/ALT 18 U/L (12-78); TOT PROT 4.7 g/dl (6.4-8.2)
--- NOTE | 2016-10-20 09:07 | PN ---
Progress Note, Physician History of Present Illness: No further hematochezia. - Current Medication List Current Medications: Active Medications Bacitracin (Bacitracin -) 1 applic TP BID [facility] Last Admin: 10/19/16 21:33 Dose: 1 applic Sodium Chloride (Normal Saline -) 1,000 mls @ 50 mls/hr IV ASDIR [facility] Last Admin: 10/19/16 23:00 Dose: 50 mls/hr Metoprolol Tartrate (Lopressor -) 25 mg PO BID [facility] Last Admin: 10/19/16 21:33 Dose: 25 mg Pantoprazole Sodium (Protonix 40mg Ivpb (Pre-Docked)) 40 mg IVPB DAILY [facility] Last Admin: 10/19/16 09:39 Dose: 40 mg - Objective Vital Signs: Vital Signs Temperature 98.1 F 10/20/16 06:00 Pulse Rate 94 H 10/20/16 06:00 Respiratory Rate 20 10/20/16 06:00 Blood Pressure 109/76 10/20/16 06:00 O2 Sat by Pulse Oximetry (%) 95 10/19/16 21:00 Constitutional: Yes: No Distress, Calm Neck: Yes: Supple Cardiovascular: Yes: Pulse Irregular Respiratory: Yes: Regular, Diminished Gastrointestinal: Yes: Normal Bowel Sounds, Soft Edema: No Labs: CBC, BMP 10/20/16 06:00 INR, PTT INR 1.59 (0.82-1.09) H D 10/20/16 06:00 Assessment/Plan 1. Rectal bleed presumed diverticular etiology since resolved 2. Persistent atrial fibrillation off NOAC - [id number] score of 3-4 3. Hypertension 4. COPD 5. CKD PLAN: 1. Pradaxa held for now. Ideally will need to restart perhaps Eliquis 2.5 mg BID (age > 80 and cr > 1.5) once hemostasis assured in 2 weeks 2. Continue Metoprolol 25 bid 3. Follow H/H. Transfuse PRBC as needed - so far stable 4. GI follow up, d/c planning
--- NOTE | 2016-10-20 10:51 | PN ---
GI Progress Note Subjective: GASTROENTEROLOGY STOPPED BLEEDING ON SOLID DIET RECEIVED PRBC/FFP/VITK NO COMPLAINTS TODAY - Objective Vital Signs: Vital Signs Temperature 98.1 F 10/20/16 06:00 Pulse Rate 94 H 10/20/16 06:00 Respiratory Rate 20 10/20/16 06:00 Blood Pressure 109/76 10/20/16 06:00 O2 Sat by Pulse Oximetry (%) 95 10/19/16 21:00 Constitutional: No Distress Eyes: Yes: Conjunctiva Clear HENT: Yes: Atraumatic Neck: Yes: Supple Cardiovascular: Yes: Regular Rate and Rhythm Respiratory: Yes: Regular Gastrointestinal Inspection: Yes: WNL ...Auscultate: Yes: Normoactive Bowel Sounds ...Palpate: Yes: Soft Extremities: Yes: WNL Labs: CBC, BMP 10/20/16 06:00 10/20/16 06:00 INR, PTT INR 1.59 (0.82-1.09) H D 10/20/16 06:00 Problem List - Problems (1) Diverticular hemorrhage Assessment/Plan: BLEEDING HAS STOPPED HIGH FIBER DIET METAMUCIL OR BENEFIBER BID RESUME ANTIPLATELET THERAPY IN 2 WEEKS SWITCH TO ELIQUIS 2.5 MG PO BID PER CARDIOLOGY NOT SURE WHY INR WAS CLOSE TO 5 ON ADMISSION, NO LIVER DYSFUNCTION--- FAMILY SHOULD REVIEW HIS MEDS AT HOME. RIVER CRUZ MD Code(s): K57.31 - DVRTCLOS OF LG INT W/O PERFORATION OR ABSCESS W BLEEDING (2) GIB (gastrointestinal bleeding) Code(s): K92.2 - GASTROINTESTINAL HEMORRHAGE, UNSPECIFIED Qualifiers: GI bleed type/associated pathology: unspecified gastrointestinal hemorrhage type Qualified Code(s): K92.2 - Gastrointestinal hemorrhage, unspecified (3) ARF (acute renal failure) Code(s): N17.9 - ACUTE KIDNEY FAILURE, UNSPECIFIED Qualifiers: Acute renal failure type: unspecified Qualified Code(s): N17.9 - Acute kidney failure, unspecified (4) Afib Code(s): I48.91 - UNSPECIFIED ATRIAL FIBRILLATION Qualifiers: Atrial fibrillation type: persistent Qualified Code(s): I48.1 - Persistent atrial fibrillation
[2016-10-20] MEDS: BACITRACIN 15 GM TUBE TOPICAL OINTMENT TP SCH ×2 (11:07→21:03)
[2016-10-20] MEDS: METOPROLOL TARTRATE 25 MG TABLET (FP) PO SCH ×2 (11:08→21:01)
[2016-10-20] MEDS: PANTOPRAZOLE SODIUM 40 MG/100 ML PRE-DOCKED IVPB SCH (11:08)
--- NOTE | 2016-10-20 11:40 | CON.PSY ---
Psychiatry Consult Chief Complaint: psych in my life.a never seen I dont have any psych problems. Symptoms: reports: Anxiety - Previous Psychiatric Treatment Outpatient: None Inpatient: None - Previous Substance Abuse Treatment Outpatient: None Inpatient: None - Current Medications Current Medications: Active Medications Bacitracin (Bacitracin -) 1 applic TP BID [facility] Last Admin: 10/20/16 11:07 Dose: 1 applic Sodium Chloride (Normal Saline -) 1,000 mls @ 50 mls/hr IV ASDIR [facility] Last Admin: 10/19/16 23:00 Dose: 50 mls/hr Metoprolol Tartrate (Lopressor -) 25 mg PO BID [facility] Last Admin: 10/20/16 11:08 Dose: 25 mg Pantoprazole Sodium (Protonix 40mg Ivpb (Pre-Docked)) 40 mg IVPB DAILY [facility] Last Admin: 10/20/16 11:08 Dose: 40 mg Psyllium Hydrophilic Mucilloid (Metamucil (Sugar-Free) -) 5.85 gm PO BID [facility] - Allergies Allergies: Allergies Allergy/AdvReac Type Severity Reaction Status Date / Time No Known Allergies Allergy Verified 10/17/16 13:54 - Current Living Status Usual Living Arrangement: With Spouse - Current Mental Status Evaluation Appearance: Well Groomed Attitude: Cooperative - Affect Affect: Full Range Appropriateness: Appropriate to Content - Mood Mood: Irritable - Speech/Language Expressive: Coherent - Psychomotor Activity Psychomotor Activity: Normal - Thought Process Thought Process: Intact - Thought Content Hallucinations: Absent Delusions: Absent - Self Perception Self Perception: No Impairment - Cognition Attention: Alert Orientation: Time Memory, Immediate Recall: Intact Memory, Short Term: 2/3 Memory, Remote with Promptin/3 - Concentration Serial Sevens Intact: No Simple Calculations Intact: No - Abstraction Proverb Interpretation: Intact Judgement: Intact - Insight Insight: Intact - Impulse Control Impulse Control: Minimally Impaired - Suicidal Ideation Suicidal Ideation: No - Homicidal Ideation Homicidal Ideation: No Assessment/Plan 1) No acute mental Illness. 2) discharge when medically stable.
--- NOTE | 2016-10-20 19:00 | CON.NEURO ---
Consult - Past Medical History Cardio/Vascular: Yes: AFIB, HTN Pulmonary: Yes: COPD Gastrointestinal: Yes: Diverticulosis, Other (IPMN PANCREAS) Renal/: Yes: Renal Inusuff Musculoskeletal: Yes: Osteoarthritis Rheumatology: Yes: Gout - Alcohol/Substance Use Hx Alcohol Use: No - Smoking History Smoking history: Former smoker Have you smoked in the past 12 months: No If you are a former smoker, when did you quit?: 20 YRS AGO - Social History Usual Living Arrangement: With Spouse Home Medications - Allergies Allergies/Adverse Reactions: Allergies Allergy/AdvReac Type Severity Reaction Status Date / Time No Known Allergies Allergy Verified 10/17/16 13:54 - Home Medications Home Medications: Ambulatory Orders Allopurinol [Zyloprim -] 100 mg PO BID 12/28/12 Chlorthalidone [Hygroton -] 25 mg PO BID 12/28/12 Dabigatran Etexilate Mesylate [Pradaxa -] 75 mg PO BID 12/28/12 Metoprolol Succinate [Toprol XL -] 25 mg PO BID 12/28/12 Callery-3 Acid Ethyl Esters [Lovaza -] 4,000 mg PO BID 12/28/12 Atenolol [Tenormin -] 25 mg PO BID 04/03/15 Family Disease History - Family Disease History Family Disease History: CA: Mother (PANCREAS) Physical Exam-Neuro Vital Signs: Vital Signs Temperature 98.2 F 10/20/16 14:00 Pulse Rate 108 H 10/20/16 14:00 Respiratory Rate 20 10/20/16 10:00 Blood Pressure 115/70 10/20/16 14:00 O2 Sat by Pulse Oximetry (%) 97 10/20/16 09:00 Labs: CBC, BMP 10/20/16 06:00 10/20/16 06:00 INR, PTT INR 1.59 (0.82-1.09) H D 10/20/16 06:00 NIH Stroke Scale - Total Score NIH Stroke Scale Score: 0 Assessment/Plan cc confusion and early dementia vs delirium HPI 80 year old male history of HTN, COPD, GERD , atrial fibrillation. he admitted for lower GI bleed ,now bleeding has stopped and Primary team planning to restart anticoagulation. i was consulted as primary team noticed inconsistency in his story and suspected he may have dementia. 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 he has two son lives close by and his is in prison. He is driving by himself and able to function by himself . During hospital stay he got confused and he did not know where was and where his is. he denies any history of stroke or depression. 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
--- NOTE | 2016-10-20 20:12 | PN ---
Progress Note, Physician Chief Complaint: Patient seen in his bed. Comfortable. Son visiting. No further active bleeding.. Maintains good urine output. - Current Medication List Current Medications: Active Medications Bacitracin (Bacitracin -) 1 applic TP BID [facility] Last Admin: 10/20/16 11:07 Dose: 1 applic Metoprolol Tartrate (Lopressor -) 25 mg PO BID [facility] Last Admin: 10/20/16 11:08 Dose: 25 mg Pantoprazole Sodium (Protonix -) 40 mg PO DAILY [facility] Psyllium Hydrophilic Mucilloid (Metamucil (Sugar-Free) -) 5.85 gm PO BID [facility] - Objective Vital Signs: Vital Signs Temperature 98.2 F 10/20/16 14:00 Pulse Rate 108 H 10/20/16 14:00 Respiratory Rate 20 10/20/16 10:00 Blood Pressure 115/70 10/20/16 14:00 O2 Sat by Pulse Oximetry (%) 97 10/20/16 09:00 Constitutional: Yes: Well Nourished, No Distress, Pallor Eyes: Yes: Conjunctiva Clear HENT: Yes: Atraumatic, Normocephalic Neck: Yes: Trachea Midline Cardiovascular: Yes: Pulse Irregular, S1, S2 Respiratory: Yes: CTA Bilaterally, Diminished Gastrointestinal: Yes: Normal Bowel Sounds, Soft Genitourinary: No: Bladder Distention, CVA Tenderness - Left, CVA Tenderness - Right Edema: No Labs: CBC, BMP 10/20/16 06:00 10/20/16 06:00 INR, PTT INR 1.59 (0.82-1.09) H D 10/20/16 06:00 Problem List - Problems (1) ARF (acute renal failure) Code(s): N17.9 - ACUTE KIDNEY FAILURE, UNSPECIFIED Qualifiers: Acute renal failure type: unspecified Qualified Code(s): N17.9 - Acute kidney failure, unspecified (2) Acute on chronic renal failure Code(s): N17.9 - ACUTE KIDNEY FAILURE, UNSPECIFIED N18.9 - CHRONIC KIDNEY DISEASE, UNSPECIFIED (3) Afib Code(s): I48.91 - UNSPECIFIED ATRIAL FIBRILLATION Qualifiers: Atrial fibrillation type: persistent Qualified Code(s): I48.1 - Persistent atrial fibrillation (4) Diverticular hemorrhage Code(s): K57.31 - DVRTCLOS OF LG INT W/O PERFORATION OR ABSCESS W BLEEDING (5) Diverticulosis Code(s): K57.90 - DVRTCLOS OF INTEST, PART UNSP, W/O PERF OR ABSCESS W/O BLEED (6) GIB (gastrointestinal bleeding) Code(s): K92.2 - GASTROINTESTINAL HEMORRHAGE, UNSPECIFIED Qualifiers: GI bleed type/associated pathology: unspecified gastrointestinal hemorrhage type Qualified Code(s): K92.2 - Gastrointestinal hemorrhage, unspecified (7) Hypertension Code(s): I10 - ESSENTIAL (PRIMARY) HYPERTENSION Qualifiers: Hypertension type: essential hypertension Qualified Code(s): I10 - Essential (primary) hypertension Assessment/Plan 80 y/o male with h/o CKD 3, admitted with acute painless lower GI bleeding, and profound anemia. The patient received PRBC Transfusions. The Renal functions got worse acutely due to hemodynamic factors, and resultant renal hypoperfusion. Renal functions are slowly returning towards his baseline. PLAN: Will monitor closely. Watch for further bleeding when Anticoagulation is resumed. May need transfusions again, if the Hgb drops further. Thank you. Mary Finley MD
[2016-10-20] MEDS: PSYLLIUM 5.85 GM PACKET PO SCH (21:02)
--- NOTE | 2016-10-20 23:52 | PN ---
Progress Note, Physician History of Present Illness: Pt w/o SOB, CP, palp, abd pain, rectal bleed. Pt with confusion, no hallucinations - Current Medication List Current Medications: Active Medications Bacitracin (Bacitracin -) 1 applic TP BID [facility] Last Admin: 10/20/16 21:03 Dose: 1 applic Metoprolol Tartrate (Lopressor -) 25 mg PO BID [facility] Last Admin: 10/20/16 21:01 Dose: 25 mg Pantoprazole Sodium (Protonix -) 40 mg PO DAILY [facility] Psyllium Hydrophilic Mucilloid (Metamucil (Sugar-Free) -) 5.85 gm PO BID [facility] Last Admin: 10/20/16 21:02 Dose: 5.85 gm - Objective Vital Signs: Vital Signs Temperature 98.2 F 10/20/16 18:40 Pulse Rate 106 H 10/20/16 18:40 Respiratory Rate 20 10/20/16 18:40 Blood Pressure 126/89 10/20/16 18:40 O2 Sat by Pulse Oximetry (%) 97 10/20/16 09:00 Constitutional: Yes: No Distress, Calm Cardiovascular: Yes: Regular Rate and Rhythm, S1, S2 Respiratory: Yes: Regular, Other (coarse BS) Gastrointestinal: Yes: Normal Bowel Sounds, Soft. No: Tenderness Edema: No Labs: CBC, BMP 10/20/16 06:00 10/20/16 06:00 INR, PTT INR 1.59 (0.82-1.09) H D 10/20/16 06:00 Problem List - Problems (1) GIB (gastrointestinal bleeding) Code(s): K92.2 - GASTROINTESTINAL HEMORRHAGE, UNSPECIFIED Qualifiers: GI bleed type/associated pathology: unspecified gastrointestinal hemorrhage type Qualified Code(s): K92.2 - Gastrointestinal hemorrhage, unspecified (2) Acute on chronic renal failure Code(s): N17.9 - ACUTE KIDNEY FAILURE, UNSPECIFIED N18.9 - CHRONIC KIDNEY DISEASE, UNSPECIFIED (3) Afib Code(s): I48.91 - UNSPECIFIED ATRIAL FIBRILLATION Qualifiers: Atrial fibrillation type: persistent Qualified Code(s): I48.1 - Persistent atrial fibrillation (4) Diverticulosis Code(s): K57.90 - DVRTCLOS OF INTEST, PART UNSP, W/O PERF OR ABSCESS W/O BLEED (5) Hypertension Code(s): I10 - ESSENTIAL (PRIMARY) HYPERTENSION Qualifiers: Hypertension type: essential hypertension Qualified Code(s): I10 - Essential (primary) hypertension (6) Altered mental status Code(s): R41.82 - ALTERED MENTAL STATUS, UNSPECIFIED Qualifiers: Altered mental status type: disorientation Qualified Code(s): R41.0 - Disorientation, unspecified (7) Hallucinations Code(s): R44.3 - HALLUCINATIONS, UNSPECIFIED Assessment/Plan AC on hold- for the next 2 weeks per GI GI consult appreciated Cardio consult appreciated To f/u H/H; pt received 2 unit PRBC, 1 unit FFP, 2.5 mg zina K (PO). Neuro consult appreciated; case was d/w Dr. Jacques Phychiatry Consult appreciated Head CT scan- no new findigs Case was reviewed with pt's son, aware that pt needs supervision at home; to d/ w CM in AM; all questions were answered. Time spent for coordinating pt's care: over 40 minutes
[2016-10-21 07:31] LABS: MCHC 34.1 g/dl (32.0-35.9); MEAN CELL VOLUME 96.8 fl (80-96); MEAN PLT VOLUME 8.8 fl (7.5-11.1); PLATELET COUNT 127 K/MM3 (134-434); RDW 16.6 % (11.9-15.9); WHITE BLOOD COUNT 6.7 K/mm3 (4.0-10.0)
--- NOTE | 2016-10-21 07:54 | PN ---
Progress Note (short form) - Note Progress Note: Chief Complaint: Events noted, Notes reviewed, sitting in a chair denies any further rectal bleed, denies any chest discomfort or dyspnea History of Present Illness: Seen and examined on telemetry. Events noted, Notes reviewed, sitting in a chair denies any further rectal bleed, denies any chest discomfort or dyspnea - Current Medication List Current Medications Bacitracin (Bacitracin -) 1 applic TP BID [facility] Last Admin: 10/21/16 10:47 Dose: 1 applic Metoprolol Tartrate (Lopressor -) 25 mg PO BID [facility] Last Admin: 10/21/16 10:48 Dose: 25 mg Pantoprazole Sodium (Protonix -) 40 mg PO DAILY [facility] Last Admin: 10/21/16 10:48 Dose: 40 mg Psyllium Hydrophilic Mucilloid (Metamucil (Sugar-Free) -) 5.85 gm PO BID [facility] Last Admin: 10/21/16 10:49 Dose: 5.85 gm Review of Systems Cardiovascular: As noted above Respiratory: denies: Cough or Sputum Production Gastrointestinal: denies: Nausea, Vomiting, Diarrhea, Constipation or Abdominal Discomfort Musculoskeletal: No Symptoms Reported Endocrine: No Symptoms Reported - Objective Vital Signs: Last Vital Signs Temp Pulse Resp BP Pulse Ox 97.7 F 99 H 20 111/70 97 10/21/16 06:00 10/21/16 06:00 10/21/16 06:00 10/21/16 06:00 10/20/16 21:00 Constitutional: No Distress, Calm Neck: Supple negative JVD no bruit Cardiovascular: S1 and S2 irregularly irregular Respiratory: Diminished breath sounds at the bases Gastrointestinal: Soft benign Normal Bowel Sounds Ext: No edema Labs: CBC, BMP 10/21/16 06:30 10/21/16 06:30 Hepatic Panel Total Bilirubin 1.0 mg/dL (0.2-1.0) D 10/20/16 06:00 AST 18 U/L (15-37) 10/20/16 06:00 ALT 18 U/L (12-78) 10/20/16 06:00 Alkaline Phosphatase 92 U/L (45-117) 10/20/16 06:00 Albumin 2.7 g/dl (3.4-5.0) L 10/20/16 06:00 INR, PTT INR 1.59 (0.82-1.09) H D 10/20/16 06:00 Assessment/Plan ASSESSMENT: 1. Rectal bleed presumed diverticular Bleed, currently resolved 2. Persistent atrial fibrillation off NOAC therapy - [id number] score of 3-4 3. 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 Hypertension 5. COPD 6. CKD 7. Anemia and thrombocytopenia PLAN: 1. Ideally anticoagulation therapy is to be continued indefinitely unless it is absolutely contraindicated (recurrent/persistent gastrointestinal bleed), as an alternative consideration for left atrial appendage closure device implantation (Watchman device ) 2. Continue Lopressor 3. Monitor hemoglobin closely and transfuse as needed maintaining hemoglobin 8.0 and above Mike Leonard M.D.
[2016-10-21 08:50] LABS: ANION GAP 9 (8-16); CALCIUM 8.2 mg/dL (8.5-10.1); CO2 22 mmol/L (21-32); CREATININE 1.7 mg/dL (0.7-1.3); GLUCOSE,RANDOM 81 mg/dL (74-106)
[2016-10-21] MEDS ORDERED: PANTOPRAZOLE 40 MG TABLET (FP) PO SCH (10:00)
[2016-10-21] MEDS: BACITRACIN 15 GM TUBE TOPICAL OINTMENT TP SCH (10:47)
[2016-10-21] MEDS: METOPROLOL TARTRATE 25 MG TABLET (FP) PO SCH (10:48)
[2016-10-21] MEDS: PSYLLIUM 5.85 GM PACKET PO SCH (10:49)
--- NOTE | 2016-10-21 12:18 | PN ---
Progress Note, Physician Chief Complaint: Patient seen sitting by his bed. No further bleeding. Denies any pains. - Current Medication List Current Medications: Active Medications Bacitracin (Bacitracin -) 1 applic TP BID [facility] Last Admin: 10/21/16 10:47 Dose: 1 applic Metoprolol Tartrate (Lopressor -) 25 mg PO BID [facility] Last Admin: 10/21/16 10:48 Dose: 25 mg Pantoprazole Sodium (Protonix -) 40 mg PO DAILY [facility] Last Admin: 10/21/16 10:48 Dose: 40 mg Psyllium Hydrophilic Mucilloid (Metamucil (Sugar-Free) -) 5.85 gm PO BID [facility] Last Admin: 10/21/16 10:49 Dose: 5.85 gm - Objective Vital Signs: Vital Signs Temperature 97.9 F 10/21/16 10:00 Pulse Rate 100 H 10/21/16 10:00 Respiratory Rate 20 10/21/16 10:00 Blood Pressure 115/91 10/21/16 10:00 O2 Sat by Pulse Oximetry (%) 98 10/21/16 09:00 Constitutional: Yes: Well Nourished, No Distress Eyes: Yes: Conjunctiva Clear Cardiovascular: Yes: S1, S2 Respiratory: Yes: CTA Bilaterally, Poor Air Entry Gastrointestinal: Yes: Normal Bowel Sounds, Soft Musculoskeletal: No: Back Pain, Muscle Pain Edema: No Labs: CBC, BMP 10/21/16 06:30 10/21/16 06:30 INR, PTT INR 1.59 (0.82-1.09) H D 10/20/16 06:00 Problem List - Problems (1) ARF (acute renal failure) Code(s): N17.9 - ACUTE KIDNEY FAILURE, UNSPECIFIED Qualifiers: Acute renal failure type: unspecified Qualified Code(s): N17.9 - Acute kidney failure, unspecified (2) Acute on chronic renal failure Code(s): N17.9 - ACUTE KIDNEY FAILURE, UNSPECIFIED N18.9 - CHRONIC KIDNEY DISEASE, UNSPECIFIED (3) Afib Code(s): I48.91 - UNSPECIFIED ATRIAL FIBRILLATION Qualifiers: Atrial fibrillation type: persistent Qualified Code(s): I48.1 - Persistent atrial fibrillation (4) Diverticular hemorrhage Code(s): K57.31 - DVRTCLOS OF LG INT W/O PERFORATION OR ABSCESS W BLEEDING (5) Diverticulosis Code(s): K57.90 - DVRTCLOS OF INTEST, PART UNSP, W/O PERF OR ABSCESS W/O BLEED (6) GIB (gastrointestinal bleeding) Code(s): K92.2 - GASTROINTESTINAL HEMORRHAGE, UNSPECIFIED Qualifiers: GI bleed type/associated pathology: unspecified gastrointestinal hemorrhage type Qualified Code(s): K92.2 - Gastrointestinal hemorrhage, unspecified (7) Hypertension Code(s): I10 - ESSENTIAL (PRIMARY) HYPERTENSION Qualifiers: Hypertension type: essential hypertension Qualified Code(s): I10 - Essential (primary) hypertension Assessment/Plan 80 y/o male with h/o CKD 3, admitted with acute painless lower GI bleeding, and profound anemia. Possibly Diverticular bleeding. The Renal functions got worse acutely due to hemodynamic factors, and resultant renal hypoperfusion. Azotemia improving. Will monitor closely. Mary Finley MD
--- NOTE | 2016-10-21 15:01 | DS ---
Physical Examination Vital Signs: Vital Signs Temperature 97.9 F 10/21/16 10:00 Pulse Rate 100 H 10/21/16 10:00 Respiratory Rate 20 10/21/16 10:00 Blood Pressure 115/91 10/21/16 10:00 O2 Sat by Pulse Oximetry (%) 98 10/21/16 09:00 Findings/Remarks: Pt w/o CP, palp., cg, abd pain, rectal bleed. Pt's confusion slightly better. Pt was seen in AM, sitting in the chair; case was d/w pt's nurse- CM saw pt and d/w family this AM Constitutional: Yes: No Distress Cardiovascular: Yes: Regular Rate and Rhythm, S1, S2 Respiratory: Yes: Regular, CTA Bilaterally. No: Rales Gastrointestinal: Yes: Normal Bowel Sounds, Soft. No: Palpable Mass, Tenderness Edema: No Neurological: Yes: Alert, Oriented (to person), Other (motor and sensory symmetric inUE/ LE/ face) Psychiatric: Yes: Alert Labs: CBC, BMP 10/21/16 06:30 10/21/16 06:30 Discharge Summary Reason For Visit: GI HEMORRHAGE Current Active Problems ARF (acute renal failure) (Acute) Acute on chronic renal failure (Acute) Afib (Acute) Altered mental status (Acute) Diverticular hemorrhage (Acute) Diverticulosis (Acute) GIB (gastrointestinal bleeding) (Acute) Hallucinations (Acute) Hypertension (Acute) Procedures: Principal: ABD/ Pelvis CT scan. Head CT scan Hospital Course: Pt came to ER with BRBPR, anemia ARF; pt was admitted for monitoring, PRBC transfusion. pt was seen by Dr. Marshall (GI), thought to be secondary to diverticular bleed; Pt was seen by Cardio (Dr. Cleveland) and Renal (Dr. Finley). Pt' s Pradaxa was held. Pt GIB stopped, improved slowly. Pt was noticed to be confused, had Head CT scan ( negative for acute event), was seen by Psychiatry ( Dr. Flynn), Neurology (Dr. Gaitan); pt was considered to have early dementia. Pt's family is aware (I spoke with his son Gopal, and Sergio was in touch with Gopal) , would stay with patient -to supervise him. To DC pt home in the family care, VNS to evaluate pt tomorrow. Condition: Fair - Instructions Diet, Activity, Other Instructions: Diet: Renal, Low salt, Low Cholesterol Referrals: Satnam Jacques MD [Staff Physician] - (1 to 2 weeks) Neville Gates MD [Primary Care Provider] - (next week) Ras Cleveland MD [Staff Physician] - (in 2 weeks) Gage Marshall MD [Staff Physician] - (in 10 to 12 days- to decide if OK to restart AC) Disposition: HOME - Home Medications Comprehensive Discharge Medication List: Ambulatory Orders This list might not be accurate Allopurinol [Zyloprim -] 100 mg PO BID 12/28/12 Chlorthalidone [Hygroton -] 25 mg PO BID 12/28/12 Metoprolol Succinate [Toprol XL -] 25 mg PO BID 12/28/12 Mobile-3 Acid Ethyl Esters [Lovaza -] 4,000 mg PO BID 12/28/12
[2016-10-21 15:03] VITALS: BP 115/80; PULSE 109; TEMP 98.1
--- NOTE | 2016-10-22 10:42 | EKG ---
Test Reason : Blood Pressure : / mmHG Vent. Rate : 068 BPM Atrial Rate : 357 BPM P-R Int : 000 ms QRS Dur : 158 ms QT Int : 474 ms P-R-T Axes : 000 -41 132 degrees QTc Int : 504 ms ATRIAL FIBRILLATION LEFT AXIS DEVIATION LEFT BUNDLE BRANCH BLOCK ABNORMAL ECG WHEN COMPARED WITH ECG OF 03-APR-2015 11:24, ATRIAL FIBRILLATION HAS REPLACED SINUS RHYTHM Confirmed by KARAN SPENCER, CARLOS ALBERTO ([id number]) on 10/22/2016 10:41:56 AM Referred By: Confirmed By:CARLOS ALBERTO RUSSO MD
[2016-10-23 06:07] LABS: HEMATOCRIT 28.1 % (37.5-51.0)
== END 2016-10-21 15:21 | disposition home or self-care (01) | DRG 813 ==
LOC: JER 13:42 → JERBED 15:46 → J4S 10-18 15:36
PROVIDERS: ADMIT Specialist; ATTEND Specialist
PROC: 30233N1 Transfusion of Nonautologous Red Blood Cells into Peripheral Vein, Percutaneous Approach (ICD-10-PCS; principal; 2016-10-18)
PROC: 30233L1 Transfusion of Nonautologous Fresh Plasma into Peripheral Vein, Percutaneous Approach (ICD-10-PCS; 2016-10-18)
PROC: 30233K1 Transfusion of Nonautologous Frozen Plasma into Peripheral Vein, Percutaneous Approach (ICD-10-PCS; 2016-10-18)
DX: D68.32 Hemorrhagic disorder due to extrinsic circulating anticoagulants (principal); K57.91 Diverticulosis of intestine, part unspecified, without perforation or abscess with bleeding; N17.9 Acute kidney failure, unspecified; I48.1 Persistent atrial fibrillation; R44.2 Other hallucinations; D69.6 Thrombocytopenia, unspecified; D64.9 Anemia, unspecified; Z87.891 Personal history of nicotine dependence; J44.9 Chronic obstructive pulmonary disease, unspecified; K21.9 Gastro-esophageal reflux disease without esophagitis; I12.9 Hypertensive chronic kidney disease with stage 1 through stage 4 chronic kidney disease, or unspecified chronic kidney disease; N18.3 Chronic kidney disease, stage 3 (moderate)
CPT/HCPCS: 36415; 36430; 70450-TC; 76775-TC; 80048; 80053; 81003; 81015; 82550; 82570; 82607; 82747; 83735; 84100; 84156; 84300; 84443; 84484; 84540; 85014; 85025; 85027; 85610; 86850; 86900; 86901; 86922; 93005; 93010; 99285-25; P9017; P9038; P9058

== ENCOUNTER 2017-08-09 12:01 | Emergency (ER) | payer OTHER ==
[2017-08-09 12:22] VITALS: BP 119/73; PULSE 78; TEMP 97.7; BMI 22.2
--- NOTE | 2017-08-09 13:18 | PDOC ---
History of Present Illness - General Chief Complaint: Injury Stated Complaint: FALL, RT FORE ARM SKIN TEAR Time Seen by Provider: 08/09/17 12:05 History Source: Patient, Old Records Exam Limitations: No Limitations - History of Present Illness Initial Comments: 08/09/17 13:13 CHIEF COMPLAINT: Tripped coming out of [employer] today HISTORY OF PRESENT ILLNESS: This is an 81-year-old man with a history of atrial fibrillation on pradaxa. He was coming out of [employer] this morning when he caught his shoe on the sidewalk and he fell forward. He put both arms out to stop his fall, and he scraped his right forearm on the pavement. There was no injury to his hands or wrists, and there was no impact to any other part of his body other than his hands and arms. He scraped the skin on his right forearm. Specifically, there was no head or neck injury. There was no back or lower extremity injury. He states the impact was minor as he fell slowly forward. He normally walks with a cane. There is no headache. There is no loss of consciousness. There is no dizziness. There is no palpitation. There is no chest pain. There is no shortness of breath. There is no focal numbness or weakness. There is no change in vision. REVIEW OF SYSTEMS: GENERAL/CONSTITUTIONAL: No fever or chills. No weakness. No weight change. HEAD, EYES, EARS, NOSE AND THROAT: No change in vision. No ear pain or discharge. No sore throat. CARDIOVASCULAR: No chest pain or shortness of breath. RESPIRATORY: No cough, wheezing, or hemoptysis. GASTROINTESTINAL: No nausea, vomiting, diarrhea or constipation. No rectal bleeding. GENITOURINARY: No dysuria, frequency, or change in urination. MUSCULOSKELETAL: No joint or muscle swelling or pain. No neck or back pain. SKIN AND BREASTS: Positive right arm skin tear. No other injuries to skin. NEUROLOGIC: No headache, vertigo, loss of consciousness, or loss of sensation. PSYCHIATRIC: No depression or anxiety. ENDOCRINE: No increased thirst. No abnormal weight change. HEMATOLOGIC/LYMPHATIC: No anemia, easy bleeding, or history of blood clots. ALLERGIC/IMMUNOLOGIC: No hives or skin allergy. No latex allergy. Past History - Past Medical History Allergies/Adverse Reactions: Allergies Allergy/AdvReac Type Severity Reaction Status Date / Time No Known Allergies Allergy Verified 10/17/16 13:54 Home Medications: Ambulatory Orders Allopurinol [Zyloprim -] 100 mg PO BID 12/28/12 Chlorthalidone [Hygroton -] 25 mg PO BID 12/28/12 Metoprolol Succinate [Toprol XL -] 25 mg PO BID 12/28/12 [place]-3 Acid Ethyl Esters [Lovaza -] 1 tab PO BID 12/28/12 Amlodipine/Atorvastatin [Caduet 10 mg-10 mg Tablet] 20 mg PO DAILY 08/09/17 Dronedarone HCl [Multaq] 400 mg PO DAILY 08/09/17 Anemia: No Asthma: No Cancer: Yes (SKIN, PROSTATE) Cardiac Disorders: Yes (ATRIAL FIBRILLATION) CVA: No COPD: No CHF: No Dementia: No Diabetes: No GI Disorders: No Disorders: Yes HTN: Yes Hypercholesterolemia: Yes Liver Disease: No Seizures: No Thyroid Disease: No - Surgical History Appendectomy: Yes Cholecystectomy: Yes - Suicide/Smoking/Psychosocial Hx Smoking History: Never smoked Have you smoked in the past 12 months: No If you are a former smoker, when did you quit?: 20 YRS AGO Information on smoking cessation initiated: No Hx Alcohol Use: No Drug/Substance Use Hx: No Substance Use Type: None Hx Substance Use Treatment: No *Physical Exam - Vital Signs Last Vital Signs Temp Pulse Resp BP Pulse Ox 97.7 F 78 20 119/73 100 08/09/17 12:02 08/09/17 12:02 08/09/17 12:02 08/09/17 12:02 08/09/17 12:02 - Physical Exam Comments: 08/09/17 13:16 GENERAL: The patient is awake, alert, and fully oriented, in no acute distress. HEAD: Normal with no signs of trauma. EYES: Pupils equal, round and reactive to light, extraocular movements intact, sclera anicteric, conjunctiva clear. ENT: Ears normal, nares patent, oropharynx clear without exudates. Moist mucous membranes. NECK: Normal range of motion, supple without lymphadenopathy, JVD, or masses. LUNGS: Breath sounds equal, clear to auscultation bilaterally. No wheezes, and no crackles. HEART: Irregularly irregular heart rate and rhythm. No tachycardia. Normal S1 and S2 without murmur or gallop. ABDOMEN: Soft, nontender, normoactive bowel sounds. No guarding, no rebound. No masses. EXTREMITIES: Normal range of motion, no edema. No clubbing or cyanosis. No cords, erythema, or tenderness. Right arm superficial skin tear, partial thickness, over the dorsal aspect of the proximal forearm. NEUROLOGICAL: Cranial nerves II through XII grossly intact. Normal speech, slow gait. Walks with a cane. PSYCH: Normal mood, normal affect. SKIN: Warm, Dry, normal turgor, right forearm skin tear as noted above. Medical Decision Making - Medical Decision Making 08/09/17 13:18 81-year-old man with a history of atrial fibrillation on Pradaxa. He had a mechanical fall coming out of [employer] today. Fortunately he protected himself by putting out both arms so there was no head, neck, back, or lower extremity injury. He did get a skin tear on the right forearm when he fell. There is no bony tenderness and range of motion of the shoulder, elbow, wrist, and hand is all normal indicating no signs of any bony injury. Wound care provided by the nurse, skin tear cleansed with saline, bacitracin applied, Xeroform dressing applied. Impression: Mechanical fall Right forearm superficial skin tear No evidence of head or neck injury in line No signs of right upper extremity bony injury No evidence of lower extremity injury *DC/Admit/Observation/Transfer Diagnosis at time of Disposition: Accident due to mechanical fall without injury Qualifiers: Encounter type: initial encounter Qualified Code(s): W19.XXXA - Unspecified fall, initial encounter Skin tear of forearm without complication Qualifiers: Encounter type: initial encounter Laterality: right Qualified Code(s): S51.811A - Laceration without foreign body of right forearm, initial encounter - Discharge Dispostion Disposition: HOME Condition at time of disposition: Good Admit: No - Referrals - Patient Instructions Additional Instructions: Today you were evaluated for a skin tear on the right forearm. Wash the area daily with soap and water. Apply a thin layer of bacitracin ointment. Cover the wound with a gauze dressing. Watch for any signs of redness, pus or red streaks to indicate infection. You should follow-up with your primary care physician in one to 2 days to make sure there are no hidden injuries from this fall. If there are any signs of skin infection see the doctor right away. Return to the emergency department for any severe or progressive symptoms. - Post Discharge Activity
== END 2017-08-09 13:22 | disposition home or self-care (01) ==
LOC: FER 12:01
DX: S51.811A Laceration without foreign body of right forearm, initial encounter (principal); W18.39XA Other fall on same level, initial encounter; Y93.89 Activity, other specified; Y92.22 Religious institution as the place of occurrence of the external cause; I48.91 Unspecified atrial fibrillation; Z79.01 Long term (current) use of anticoagulants; Z87.891 Personal history of nicotine dependence; I10 Essential (primary) hypertension; E78.00 Pure hypercholesterolemia, unspecified; Z85.828 Personal history of other malignant neoplasm of skin
CPT/HCPCS: 99282-25

== ENCOUNTER 2018-06-07 15:11 | Inpatient (IN) | payer OTHER ==
--- NOTE | 2018-06-07 15:33 | PDOC ---
Rapid Medical Evaluation Medical Evaluation: Allergies Allergy/AdvReac Type Severity Reaction Status Date / Time No Known Allergies Allergy Verified 10/17/16 13:54 I have performed a brief in-person evaluation of this patient. The patient presents with a chief complaint of: Hx of afib (?on xarelto), HTN sent from PCP for generalized weakness x 1.5 weeks; denies fever, cp, vomiting, diarrhea Pertinent physical exam findings: Rales on auscultation, no swelling of extremities I have ordered the following: Labs, EKG, CXR The patient will proceed to the ED for further evaluation. 06/07/18 15:31
--- NOTE | 2018-06-07 16:27 | PDOC ---
History of Present Illness - General Chief Complaint: Weakness Stated Complaint: SENT BY PCP Time Seen by Provider: 06/07/18 15:31 - History of Present Illness Initial Comments: 06/07/18 16:27 The patient is an 82 year old male with a PMH of COPD (not on home O2),Afib (on Elqiuis) HTN, CKD, OA, Gout, diverticulosis presents with a 1 week h/o worsening shortness of breath and non-productive cough. States he has been coughing daily and feels like something is stuck in his lungs. Cough is worse with lying supine and talking. Has not taken any medication for symptomatic relief, was evaluated by PMD (Dr. Neville Gates) who advised patient to come to ED. States he is compliant with his medication and received the influenza vaccine this year. Denies chest pain, nausea, diaphoresis, lightheadedness, palpitations, lower extremity swelling. NKDA PMD: Dr. Gates As per EMR, patient last evaluated in our ED in 07/2017 for a likely mechanical fall. Past History - Past Medical History Allergies/Adverse Reactions: Allergies Allergy/AdvReac Type Severity Reaction Status Date / Time No Known Allergies Allergy Verified 06/07/18 18:03 Home Medications: Ambulatory Orders Allopurinol [Zyloprim -] 100 mg PO BID 12/28/12 Chlorthalidone [Hygroton -] 25 mg PO BID 12/28/12 Metoprolol Succinate [Toprol XL -] 25 mg PO BID 12/28/12 [place]-3 Acid Ethyl Esters [Lovaza -] 1 tab PO BID 12/28/12 Amlodipine/Atorvastatin [Caduet 10 mg-10 mg Tablet] 20 mg PO DAILY 08/09/17 Dronedarone HCl [Multaq] 400 mg PO DAILY 08/09/17 Anemia: No Asthma: No Cancer: Yes (SKIN, PROSTATE) Cardiac Disorders: Yes (ATRIAL FIBRILLATION) CVA: No COPD: No CHF: No Dementia: No Diabetes: No GI Disorders: No Disorders: Yes HTN: Yes Hypercholesterolemia: Yes Liver Disease: No Seizures: No Thyroid Disease: No - Surgical History Appendectomy: Yes Cholecystectomy: Yes - Suicide/Smoking/Psychosocial Hx Smoking History: Never smoked Have you smoked in the past 12 months: No If you are a former smoker, when did you quit?: 20 YRS AGO Information on smoking cessation initiated: No Hx Alcohol Use: No Drug/Substance Use Hx: No Substance Use Type: None Hx Substance Use Treatment: No Review of Systems - Review of Systems Constitutional: No: Chills, Fever HEENTM: No: Recent change in vision, Throat Pain Respiratory: Yes: Cough. No: Wheezing, Productive cough Cardiac (ROS): No: Chest Pain, Lightheadedness, Palpitations, Syncope ABD/GI: No: Constipated, Diarrhea, Nausea, Vomiting *Physical Exam - Vital Signs Last Vital Signs Temp Pulse Resp BP Pulse Ox 97.8 F 141 H 16 130/85 98 06/07/18 15:33 06/07/18 15:33 06/07/18 15:33 06/07/18 15:33 06/07/18 15:33 - Physical Exam General Appearance: Yes: Nourished, Thin HEENT: positive: Normal Voice, Hearing Grossly Normal Neck: positive: Trachea midline, Supple Respiratory/Chest: positive: Normal Breath Sounds, Crackles, Wheezing Cardiovascular: positive: S1, S2. negative: JVD Gastrointestinal/Abdominal: positive: Normal Bowel Sounds, Soft Extremity: positive: Normal Capillary Refill, Normal Inspection Integumentary: positive: Normal Color, Dry, Warm Neurologic: positive: Fully Oriented, Alert Moderate Sedation - Procedure Monitoring Vital Signs: Procedure Monitoring Vital Signs Temperature 97.8 F 06/07/18 15:33 Pulse Rate 141 H 06/07/18 15:33 Respiratory Rate 16 06/07/18 15:33 Blood Pressure 130/85 06/07/18 15:33 O2 Sat by Pulse Oximetry (%) 98 06/07/18 15:33 ED Treatment Course - LABORATORY CBC & Chemistry Diagram: 06/08/18 06:00 06/08/18 06:00 Medical Decision Making - Medical Decision Making 06/07/18 17:53 82 year old male with worsening dyspnea and non-productive cough. Tachycardic ( HR 130's) Frontal diagnosis: COPD exacerbation, PNA, CHF, Acute onset pulmonary edema. Will obtain CXR, Troponin/BNP, EKG. Symptomatic relief with Atrovent (no B-agonist given patient's tachycardia and h/o COPD) and steroids. Holding fluids as patient has crackles on PE - concern for pulmonary edema, will withhold IV hydration pending CXR. Consider CCB for rate control if tachycardia doesn't resolve. 06/07/18 18:21 My read of CXR shows RLL consolidation, possible pulmonary edema --> will initiate CAP and continue withhold IV fluids CBC - 8.4 (previous 9.8) - will obtain FOBT given patient's previous h/o GI bleed; patient refusing FOBT Cr 2.6 (previous Cr 1.9) Troponin 0.17 likely 2/2 to demand ischemia EKG shows AFib w/RVR, will give 10 of Diltiazem and admit to telemetry Case d/w Dr. Gates, will admit to inpatient medicine for further evaluation. Agree w/Abx and tele admisison. Patient reassessed @ bedside. Counseled on plan of care. Clinical Impression: Community acquired PNA, Acute on chronic CKD, AFib w/RVR *DC/Admit/Observation/Transfer Diagnosis at time of Disposition: Community acquired pneumonia, Atrial fibrillation with rapid ventricular response - Discharge Dispostion Condition at time of disposition: Stable Decision to Admit order: Yes - Referrals - Patient Instructions - Post Discharge Activity
[2018-06-07] MEDS ORDERED: IPRATROPIUM BR 0.02% 0.5 MG/2.5 ML VIAL.NEB. NEB ONE ×2 (16:37→16:46)
[2018-06-07] MEDS ORDERED: methylPREDNISolone NA SUCC 125 MG/2 ML VIAL IVPB ONE (16:38)
[2018-06-07 16:39] LABS: BASO % 0.1 % (0-2.0); HEMATOCRIT 26.5 % (35.4-49); HEMOGLOBIN 8.4 GM/dL (11.7-16.9); LYMPH % 13.3 % (8-40); MCH 24.7 pg (25.7-33.7); MCHC 31.6 g/dl (32.0-35.9); MEAN CELL VOLUME 78.2 fl (80-96); MEAN PLT VOLUME 8.8 fl (7.5-11.1); MONO % 6.3 % (3.8-10.2); NEUT % 80.3 % (42.8-82.8); PLATELET COUNT 171 K/MM3 (134-434); RBC 3.38 M/mm3 (4.00-5.60); RDW 17.9 % (11.9-15.9); WHITE BLOOD COUNT 6.3 K/mm3 (4.0-10.0)
[2018-06-07] MEDS ORDERED: methylPREDNISolone NA SUCC 125 MG/2 ML VIAL ONE (16:46)
[2018-06-07 16:55] LABS: VENOUS PC02 23.5 mmHg (38-52); VENOUS PH 7.44 (7.32-7.42)
[2018-06-07] MEDS ORDERED: ALBUTEROL SO4 0.083% IH SOL 2.5 MG/3 ML VIAL.NEB. NEB ONE ×2 (16:55→17:23)
[2018-06-07 17:06] LABS: ALK PHOS 135 U/L (45-117); ANION GAP 8 MMOL/L (8-16); BILIRUBIN,TOTAL 0.6 mg/dL (0.2-1); BLOOD UREA NITROGEN 34 mg/dL (7-18); CALCIUM 7.9 mg/dL (8.5-10.1); CHLORIDE 116 mmol/L (98-107); CO2 20 mmol/L (21-32); CREATININE 2.6 mg/dL (0.55-1.3); GLUCOSE,RANDOM 136 mg/dL (74-106); POTASSIUM 4.5 mmol/L (3.5-5.1); SGOT/AST 21 U/L (15-37); SGPT/ALT 23 U/L (13-61); SODIUM 144 mmol/L (136-145)
[2018-06-07 17:16] LABS: INR 1.12 (0.83-1.09); PROTHROMBIN TIME (PATIENT) 13.2 SEC (9.7-13.0)
--- NOTE | 2018-06-07 17:34 | PDOC ---
Attending Attestation - Resident Resident Name: Cira Langford - ED Attending Attestation I have performed the following: I have examined & evaluated the patient, The case was reviewed & discussed with the resident, I agree w/resident's findings & plan, Exceptions are as noted - HPI HPI: 06/07/18 17:26 82 M with h/o COPD (not on home O2), HTN, CKD, OA, Gout, diverticulosis, presenting to ED with 1 week of worsening cough and SOB. Pt reports dry, nonproductive cough. States he feels like he wants to get something up but isn' t able to clear it from his lungs. Denies any chest pain. Denies leg swelling, though states cough is worse with lying flat. Denies F/C. Pt does not use inhaler or nebulizer at home. - Physicial Exam PE: 06/07/18 17:27 GENERAL: Awake, alert, and fully oriented, in no acute distress. HEAD: No signs of trauma EYES: PERRLA, EOMI, sclera anicteric, conjunctiva clear ENT: Auricles normal inspection, hearing grossly normal, nares patent, oropharynx clear without exudates. Moist mucosa NECK: Nontender, no stepoffs, Normal ROM, supple, no lymphadenopathy, JVD, or masses LUNGS: + diffuse expiratory wheezes HEART: Irregular rate and rhythm, normal S1 and S2, no murmurs, rubs or gallops ABDOMEN: Soft, nontender, normoactive bowel sounds. No guarding, no rebound. No masses EXTREMITIES: Normal range of motion, no edema. No clubbing or cyanosis. No cords, erythema, or tenderness NEUROLOGICAL: Cranial nerves II through XII intact. 5/5 strength and sensation in all extremities, Normal speech, normal gait, normal cerebellar function SKIN: Warm, Dry, normal turgor, no rashes or lesions noted. - Critical Care Time Total Critical Care Time: 60 Critical Care Statement: The care of this patient involved high complexity decision making to prevent further life threatening deterioration of the patient 's condition and/or to evaluate & treat vital organ system(s) failure or risk of failure. - Medical Decision Making 06/07/18 17:29 82 M with SOB and cough x 1 week. Exam notable for diffuse wheezing, suspicious for COPD exacerbation. Pt also with orthopnea, so consider volume overload, though no pitting edema on exam. Pt in ED tachy to 130s, EKG showing afib with RVR. - Labs, BNP, trop - CXR - Atrovent, solumedrol for COPD exacerbation (hold beta agonist for now) - Rate control with dilt as needed (avoid B-sarah beth given COPD) - Admit 06/07/18 18:00 Pt with trop 0.17, likely demand 2/2 afib RVR CXR shows likely RLL consolidation Covered with ceftriaxone/azithro BNP elevated 60,000, possible edema on CXR WIll hold fluids for now Dilt 10mg IV ordered for rate control
[2018-06-07 17:37] LABS: MAGNESIUM 2.2 mg/dL (1.8-2.4); N-TERMINAL BNP 59462.3 pg/ml (5-450)
[2018-06-07] MEDS ORDERED: SODIUM CHLORIDE 500 ML IV STA (18:03)
[2018-06-07] MEDS ORDERED: dilTIAZem HCL 50 MG/10 ML - 10 ML VIAL IVPUSH ONE (18:06)
[2018-06-07] MEDS ORDERED: AZITHROMYCIN IVPB 1,000 MG in DEXTROSE 5%-WATER - 250 ML IVPB ONE (18:07)
[2018-06-07] MEDS ORDERED: AZITHROMYCIN IVPB 500 MG/250 ML BAG IVPB ONE (18:36)
[2018-06-07] MEDS ORDERED: AZITHROMYCIN IVPB 500 MG in DEXTROSE 5%-WATER - 250 ML IVPB ONE (18:36)
[2018-06-07] MEDS ORDERED: CEFTRIAXONE 1 GM/50 ML BAG ONE (18:36)
[2018-06-07] MEDS ORDERED: dilTIAZem HCL 125 MG/25 ML - 25 ML VIAL ONE (18:37)
--- NOTE | 2018-06-07 18:50 | CON.CARD ---
Consult Consult Specialty:: Cardiology Referred by:: Emergency Medicine, Neville Gates MD Reason for Consultation:: Dyspnea - History of Present Illness Chief Complaint: Rapid afib History of Present Illness: Patient is an 82 year old male with underlying history of hypertension/HCVD, GERD, CODP, CKD, systolic dysfunction, pancreatic cyst, history of diverticulosis and persistent atrial fibrillation on Eliquis and failed synchronized cardioversion who presents with 1 week of progressive cough, dyspnea, orthopnea, without chest pain, near or true syncope, palpitations, PND or LE edema, noted to be in rapid afib rate-controlled with IV cardizem, denies fevers or chills. - History Source History Provided By: Family Member Limitations to Obtaining History: Poor Historian - Past Medical History Cardio/Vascular: Yes: AFIB, CHF, HTN Pulmonary: Yes: COPD Gastrointestinal: Yes: Diverticulosis, Other (IPMN PANCREAS) Renal/: Yes: Renal Inusuff Musculoskeletal: Yes: Osteoarthritis Rheumatology: Yes: Gout - Alcohol/Substance Use Hx Alcohol Use: No - Smoking History Smoking history: Never smoked Have you smoked in the past 12 months: No If you are a former smoker, when did you quit?: 20 YRS AGO - Social History Usual Living Arrangement: With Spouse Home Medications - Allergies Allergies/Adverse Reactions: Allergies Allergy/AdvReac Type Severity Reaction Status Date / Time No Known Allergies Allergy Verified 06/07/18 18:03 - Home Medications Home Medications: Ambulatory Orders Allopurinol [Zyloprim -] 100 mg PO BID 12/28/12 Chlorthalidone [Hygroton -] 25 mg PO BID 12/28/12 Metoprolol Succinate [Toprol XL -] 25 mg PO BID 12/28/12 [place]-3 Acid Ethyl Esters [Lovaza -] 1 tab PO BID 12/28/12 Amlodipine/Atorvastatin [Caduet 10 mg-10 mg Tablet] 20 mg PO DAILY 08/09/17 Dronedarone HCl [Multaq] 400 mg PO DAILY 08/09/17 Family Disease History - Family Disease History Family Disease History: CA: Mother (PANCREAS) Review of Systems - Review of Systems Respiratory: reports: Cough, Orthopnea, SOB Vital Signs: Vital Signs Temperature 97.8 F 06/07/18 15:33 Pulse Rate 116 H 06/07/18 17:20 Respiratory Rate 16 06/07/18 15:33 Blood Pressure 130/85 06/07/18 15:33 O2 Sat by Pulse Oximetry (%) 98 06/07/18 15:33 Constitutional: Yes: No Distress, Calm Neck: Yes: Supple Respiratory: Yes: Regular, Diminished, On Nasal O2 Gastrointestinal: Yes: Normal Bowel Sounds, Soft Cardiovascular: Yes: Tachycardia, Pulse Irregular JVD: No Carotid Bruit: No Heart Sounds: Yes: S1, S2 Murmur: Yes: Systolic Murmur, Grade 1 Edema: No - Other Data Labs, Other Data: CBC, BMP 06/07/18 15:57 06/07/18 15:57 INR, PTT INR 1.12 (0.83-1.09) H 06/07/18 16:15 Troponin, BNP 06/07/18 06/07/18 15:57 16:15 Troponin I 0.17 H B-Natriuretic Peptide 45369.3 H Troponin, BNP 06/07/18 06/07/18 15:57 16:15 Troponin I 0.17 H B-Natriuretic Peptide 99791.3 H Afib @ 122 LAD, LBBB Echo: Pending Imaging - Results Chest X-ray: Report Reviewed (COPD, mild congestion) Problem List - Problems (1) Acute on chronic systolic heart failure Code(s): I50.23 - ACUTE ON CHRONIC SYSTOLIC (CONGESTIVE) HEART FAILURE (2) Atrial fibrillation with rapid ventricular response Code(s): I48.91 - UNSPECIFIED ATRIAL FIBRILLATION (3) Hypertensive heart disease Code(s): I11.9 - HYPERTENSIVE HEART DISEASE WITHOUT HEART FAILURE Qualifiers: Heart failure presence: with heart failure Heart failure type: combined systolic and diastolic Heart failure chronicity: acute on chronic Qualified Code(s): I11.0 - Hypertensive heart disease with heart failure; I50.43 - Acute on chronic combined systolic (congestive) and diastolic (congestive) heart failure (4) Chronic anticoagulation Code(s): Z79.01 - PRISON (CURRENT) USE OF ANTICOAGULANTS (5) Acute on chronic renal failure Code(s): N17.9 - ACUTE KIDNEY FAILURE, UNSPECIFIED; N18.9 - CHRONIC KIDNEY DISEASE, UNSPECIFIED Qualifiers: Chronic kidney disease stage: stage 3 (moderate) (6) Diverticulosis Code(s): K57.90 - DVRTCLOS OF INTEST, PART UNSP, W/O PERF OR ABSCESS W/O BLEED Qualifiers: Diverticulosis site: unspecified location Diverticulosis bleeding: diverticulosis without bleeding Qualified Code(s): K57.90 - Diverticulosis of intestine, part unspecified, without perforation or abscess without bleeding (7) Subendocardial ischemia Code(s): I24.8 - OTHER FORMS OF ACUTE ISCHEMIC HEART DISEASE Assessment/Plan 1. Dyspnea, orthopnea, cough referable to acute on chronic systolic heart failure and subendocardial ischemia 2. Persistent atrial fibrillation with RVR on Eliquis - [id number] score of 3-4 3. Hypertension/HCVD 4. Hyperlipidemia 5. COPD not in flare 6. Acute on CKD referable to #1 7. Anemia of chronic disease 8. H/o diverticular bleed PLAN: 1. IV diuresis with monitor diuretic response, renal fxn and electrolytes,don't suspect PNA 2. Continue Eliquis 2.5 bid, Lopressor 25 bid, hold losartan pending renal function improvement 3. Monitor hemoglobin closely and transfuse as needed maintaining hemoglobin 8.0 and above 4. Repeat echo to assess ventricular and valve fxn 5. Thank you for consultative opportunity
[2018-06-07] MEDS ORDERED: dilTIAZem HCL 50 MG/10 ML - 10 ML VIAL IVPUSH PRN (19:07)
--- NOTE | 2018-06-07 19:12 | HP ---
Admitting History and Physical - Primary Care Physician PCP: Neville Gatse - Admission Chief Complaint: Weakness. AMAYA. Cough History of Present Illness: Pt with significant Hx/o HTN, CHF, A FIB on AC developed cough and weakness for about a week that got progressively worse; today pt developed AMAYA. In ER pt was founfd to have PNA and A fib with RVR. History Source: Patient, Family Member Limitations to Obtaining History: No Limitations - Past Medical History Cardiovascular: Yes: AFIB, CHF, HTN Pulmonary: Yes: COPD Gastrointestinal: Yes: Diverticulosis, Other (IPMN PANCREAS) Renal/: Yes: Renal Inusuff Musculoskeletal: Yes: Osteoarthritis Rheumatology: Yes: Gout - Smoking History Smoking history: Never smoked Have you smoked in the past 12 months: No If you are a former smoker, when did you quit?: 20 YRS AGO - Alcohol/Substance Use Hx Alcohol Use: No Home Medications - Allergies Allergies/Adverse Reactions: Allergies Allergy/AdvReac Type Severity Reaction Status Date / Time No Known Allergies Allergy Verified 06/07/18 18:03 - Home Medications Home Medications: Ambulatory Orders Allopurinol [Zyloprim -] 100 mg PO BID 12/28/12 Chlorthalidone [Hygroton -] 25 mg PO BID 12/28/12 Metoprolol Succinate [Toprol XL -] 25 mg PO BID 12/28/12 [place]-3 Acid Ethyl Esters [Lovaza -] 1 tab PO BID 12/28/12 Amlodipine/Atorvastatin [Caduet 10 mg-10 mg Tablet] 20 mg PO DAILY 08/09/17 Dronedarone HCl [Multaq] 400 mg PO DAILY 08/09/17 Family Disease History - Family Disease History Family Disease History: CA: Mother (PANCREAS) Review of Systems - Review of Systems Constitutional: denies: Chills, Fever Eyes: denies: Blind Spots, Blurred Vision HENT: reports: Throat Pain. denies: Ear Discharge, Ear Pain, Nasal Congestion Neck: denies: Pain on Movement, Stiffness Cardiovascular: denies: Chest Pain, Edema, Palpitations Respiratory: reports: Cough, SOB, SOB on Exertion. denies: Hemoptysis, Wheezing Gastrointestinal: reports: Nausea. denies: Abdominal Pain, Diarrhea, Vomiting Genitourinary: denies: Burning, Discharge, Dysuria Musculoskeletal: denies: Back Pain, Joint Swelling Integumentary: denies: Blister, Bruising, Rash Neurological: reports: Weakness. denies: Change in LOC, Change in Speech, Confusion, Incoordination, Numbness Endocrine: denies: Excessive Sweating, Intolerance to Cold Hematology/Lymphatic: denies: Easily Bruised, Excessive Bleeding Psychiatric: denies: Anxiety, Depression Physical Examination Vital Signs: Vital Signs Temperature 97.8 F 06/07/18 15:33 Pulse Rate 116 H 06/07/18 17:20 Respiratory Rate 16 06/07/18 15:33 Blood Pressure 130/85 06/07/18 15:33 O2 Sat by Pulse Oximetry (%) 98 06/07/18 15:33 Constitutional: Yes: No Distress, Calm Eyes: Yes: Conjunctiva Clear, EOM Intact HENT: Yes: Normocephalic, Pharyngeal Erythema. No: Epistaxis Neck: Yes: Trachea Midline. No: Lymphadenopathy Cardiovascular: Yes: Tachycardia, Pulse Irregular, S1, S2 Respiratory: Yes: Regular, Rhonchi (at bases R >> L). No: Wheezes Gastrointestinal: Yes: Normal Bowel Sounds, Soft. No: Palpable Mass, Tenderness ...Rectal Exam: Yes: Deferred Renal/: No: CVA Tenderness - Left, CVA Tenderness - Right Edema: LLE: 1+, RLE: 1+ Neurological: Yes: Alert, Oriented, Other (motor and sensory examination is symmetric in UE/ LE/ face) Psychiatric: Yes: Alert, Oriented Labs: CBC, BMP 06/07/18 15:57 06/07/18 15:57 Imaging - Results Chest X-ray: Report Reviewed Problem List - Problems (1) Atrial fibrillation with rapid ventricular response Code(s): I48.91 - UNSPECIFIED ATRIAL FIBRILLATION (2) Acute on chronic systolic heart failure Code(s): I50.23 - ACUTE ON CHRONIC SYSTOLIC (CONGESTIVE) HEART FAILURE (3) PNA (pneumonia) Assessment/Plan: probable; to f/u official CXR report. Code(s): J18.9 - PNEUMONIA, UNSPECIFIED ORGANISM (4) Demand ischemia Code(s): I24.8 - OTHER FORMS OF ACUTE ISCHEMIC HEART DISEASE (5) CRF (chronic renal failure) Code(s): N18.9 - CHRONIC KIDNEY DISEASE, UNSPECIFIED (6) Hypertension Code(s): I10 - ESSENTIAL (PRIMARY) HYPERTENSION Qualifiers: Hypertension type: essential hypertension Qualified Code(s): I10 - Essential (primary) hypertension Assessment/Plan Admit to Telemetry Serial CE [place] IVP for HR control Cardio Consult; case was d/w Dr. Pineda, in ER. AM labs
[2018-06-07] MEDS ORDERED: FUROSEMIDE 40 MG/4 ML INJECTABLE VIAL ONE (19:33)
[2018-06-07] MEDS ORDERED: METOPROLOL TARTRATE 25 MG TABLET (FP) ONE ×2 (19:33→22:40)
[2018-06-07] MEDS: METOPROLOL TARTRATE 25 MG TABLET (FP) PO SCH ×2 (20:02→22:46)
[2018-06-07] MEDS: FUROSEMIDE 40 MG/4 ML INJECTABLE VIAL IVPUSH SCH (20:02)
[2018-06-07 20:21] LABS: ACETONE SERUM NEGATIVE (NEGATIVE)
[2018-06-07 20:28] LABS: URINE APPEARANCE CLEAR; URINE BILIRUBIN NEGATIVE (<2.0 mg/dL); URINE COLOR YELLOW; URINE GLUCOSE (UA) NEGATIVE (NEGATIVE); URINE KETONE NEGATIVE (NEGATIVE); URINE LEUK ESTERASE NEGATIVE (NEGATIVE); URINE NITRITE NEGATIVE (NEGATIVE); URINE PROTEIN 2+ (NEGATIVE); URINE UROBILINOGEN NEGATIVE mg/dL (0.2-1.0)
[2018-06-07 20:55] LABS: EPI CELLS RARE /HPF (FEW); URINE MUCUS RARE
[2018-06-07] MEDS ORDERED: APIXABAN 5 MG TABLET PO ONE (22:40)
[2018-06-07] MEDS: APIXABAN 2.5 MG TABLET PO SCH (22:46)
[2018-06-08 07:20] LABS: HEMATOCRIT 24.9 % (35.4-49); HEMOGLOBIN 7.9 GM/dL (11.7-16.9); MCH 24.6 pg (25.7-33.7); MCHC 31.9 g/dl (32.0-35.9); MEAN CELL VOLUME 77.1 fl (80-96); MEAN PLT VOLUME 8.9 fl (7.5-11.1); PLATELET COUNT 168 K/MM3 (134-434); RBC 3.23 M/mm3 (4.00-5.60); RDW 17.9 % (11.9-15.9); WHITE BLOOD COUNT 4.9 K/mm3 (4.0-10.0)
[2018-06-08 08:10] LABS: ANION GAP 9 MMOL/L (8-16); BLOOD UREA NITROGEN 41 mg/dL (7-18); CALCIUM 8.3 mg/dL (8.5-10.1); CHLORIDE 113 mmol/L (98-107); CO2 20 mmol/L (21-32); CREATININE 2.6 mg/dL (0.55-1.3); GLUCOSE,RANDOM 123 mg/dL (74-106); POTASSIUM 4.7 mmol/L (3.5-5.1); SODIUM 142 mmol/L (136-145)
[2018-06-08] MEDS: FUROSEMIDE 40 MG/4 ML INJECTABLE VIAL IVPUSH SCH (09:23)
[2018-06-08] MEDS: METOPROLOL TARTRATE 25 MG TABLET (FP) PO SCH (09:23)
[2018-06-08] MEDS: OMEGA-3 ACID ETHYL ESTERS (FATTY-ACIDS) 1 GM CAPSULE (FP) PO SCH ×2 (09:23→23:36)
[2018-06-08] MEDS: APIXABAN 2.5 MG TABLET PO SCH ×2 (09:23→22:27)
[2018-06-08] MEDS: ALLOPURINOL 100 MG TABLET (FP) PO SCH ×2 (09:23→22:27)
[2018-06-08] MEDS ORDERED: CEFTRIAXONE 1 GM/50 ML BAG ONE (09:24)
[2018-06-08] MEDS ORDERED: AZITHROMYCIN IVPB 500 MG/250 ML BAG IVPB ONE (09:24)
[2018-06-08] MEDS: CEFTRIAXONE 1 GM in DEXTROSE 5%-WATER - 50 ML IVPB SCH (09:25)
--- NOTE | 2018-06-08 09:55 | PN ---
Progress Note, Physician History of Present Illness: Pt breathing is about the same. Pt w/o CP, palp, dizziness, and pain. - Current Medication List Current Medications: Active Medications Allopurinol (Zyloprim -) 100 mg PO BID ON LICENSE OF [facility] Last Admin: 06/08/18 09:23 Dose: 100 mg Apixaban (Eliquis -) 2.5 mg PO BID ON LICENSE OF [facility] Last Admin: 06/08/18 09:23 Dose: 2.5 mg Diltiazem HCl (Cardizem Injection -) 10 mg IVPUSH Q4H PRN PRN Reason: TACHYCARDIA Furosemide (Lasix Injection -) 40 mg IVPUSH DAILY ON LICENSE OF [facility] Last Admin: 06/08/18 09:23 Dose: 40 mg Azithromycin (Zithromax 500mg Ivpb (Pre-Docked)) 500 mg in 250 mls @ 250 mls/ hr IVPB DAILY ON LICENSE OF [facility] Ceftriaxone Sodium 1 gm/ (Dextrose) 50 mls @ 100 mls/hr IVPB DAILY ON LICENSE OF [facility] Last Admin: 06/08/18 09:25 Dose: 100 mls/hr Metoprolol Tartrate (Lopressor -) 25 mg PO BID ON LICENSE OF [facility] Last Admin: 06/08/18 09:23 Dose: 25 mg [id number] Ethyl Esters (Lovaza -) 1 gm PO BID ON LICENSE OF [facility] Last Admin: 06/08/18 09:23 Dose: 1 gm - Objective Vital Signs: Vital Signs Temperature 98.1 F 06/08/18 09:34 Pulse Rate 117 H 06/08/18 09:34 Respiratory Rate 18 06/08/18 09:34 Blood Pressure 117/92 06/08/18 09:34 O2 Sat by Pulse Oximetry (%) 98 06/08/18 09:34 Constitutional: Yes: No Distress, Calm Cardiovascular: Yes: Regular Rate and Rhythm, S1, S2 Respiratory: Yes: Regular, Rhonchi Gastrointestinal: Yes: Normal Bowel Sounds, Soft. No: Tenderness Edema: LLE: Trace, RLE: Trace Neurological: Yes: Alert, Oriented Labs: CBC, BMP 06/08/18 06:00 06/08/18 06:00 INR, PTT INR 1.12 (0.83-1.09) H 06/07/18 16:15 Problem List - Problems (1) Atrial fibrillation with rapid ventricular response Code(s): I48.91 - UNSPECIFIED ATRIAL FIBRILLATION (2) Acute on chronic systolic heart failure Code(s): I50.23 - ACUTE ON CHRONIC SYSTOLIC (CONGESTIVE) HEART FAILURE (3) PNA (pneumonia) Code(s): J18.9 - PNEUMONIA, UNSPECIFIED ORGANISM (4) Demand ischemia Code(s): I24.8 - OTHER FORMS OF ACUTE ISCHEMIC HEART DISEASE (5) CRF (chronic renal failure) Code(s): N18.9 - CHRONIC KIDNEY DISEASE, UNSPECIFIED (6) Hypertension Code(s): I10 - ESSENTIAL (PRIMARY) HYPERTENSION Qualifiers: Hypertension type: essential hypertension Qualified Code(s): I10 - Essential (primary) hypertension Assessment/Plan Admitted to Telemetry Serial CE (Trop I is trending down) Cardipedrom IVP for HR control Cardio Consult; case was d/w Dr. JON. IV abtx AM labs
[2018-06-08] MEDS: AZITHROMYCIN IVPB 500 MG/250 ML BAG IVPB SCH (10:56)
--- NOTE | 2018-06-08 12:36 | ECHO ---
Name: JOSE JUAN TOLEDO Exam:Adult Echocardiogram Study Date: 06/08/2018 08:46 AM Age: 82 yrs Reason For Study: LV Function Height: 76 in Weight: 175 lb BSA: 2.1 m2 MMode/2D Measurements & Calculations IVSd: 1.3 cm Ao root diam: 2.6 cm LVIDd: 4.8 cm LA dimension: 3.3 cm LVIDs: 3.3 cm LVPWd: 1.2 cm EDV(Teich): 107.0 ml LVOT diam: 2.0 cm ESV(Teich): 44.2 ml LAV (MOD-bp): 112.0 ml Doppler Measurements & Calculations MV E max jacky: 114.0 cm/sec MV dec slope: 1165 cm/sec2 Ao V2 max: 188.9 cm/sec AI max jacky: 114.0 cm/sec Ao max P.1 mmHg AI max P.2 mmHg Ao V2 mean: 123.1 cm/sec Ao mean P.5 mmHg AI dec slope: 264.5 cm/sec2 Ao V2 VTI: 26.3 cm JR(I,D): 0.97 cm2 AI P1/2t: 126.3 msec JR(V,D): 0.75 cm2 LV V1 max P.0 mmHg MR max jacky: 568.6 cm/sec LV V1 mean P.68 mmHg MR max P.7 mmHg LV V1 max: 44.0 cm/sec LV V1 mean: 36.1 cm/sec LV V1 VTI: 7.9 cm SV(LVOT): 25.6 ml TR max jacky: 243.4 cm/sec TR max P.2 mmHg Med Peak E' Jacky: 6.6 cm/sec PI Vmax: 164.2 cm/sec Med E/e': 17.2 Lat Peak E' Jacky: 7.2 cm/sec Lat E/e': 15.9 Procedure A two-dimensional transthoracic echocardiogram with color flow and Doppler was performed. The study w as technically difficult with many images being suboptimal in quality. Left Ventricle Left ventricular systolic function is moderately reduced. Ejection Fraction = 35-40%. The mid to dist al anteroseptal, inferolateral, and apical segments are hypokinetic. Right Ventricle The right ventricle is grossly normal size. The right ventricular systolic function is grossly normal . Atria The left atrium is moderately dilated. Right atrial size is normal. Mitral Valve There is mild mitral annular calcification. There is mild to moderate mitral regurgitation. Tricuspid Valve There is mild tricuspid regurgitation. Right ventricular systolic pressure is elevated at 42 mmhg. Th ere is mild pulmonary hypertension. Aortic Valve There is moderate aortic sclerosis.;. Aortic max pressure gradient= 12mmHg. Hemodynamically significa nt valvular aortic stenosis cannot be excluded. Likely mild to moderate aortic stenosis. The calculated JR is approximately 1.1cm2 with a Mean gradient of 12mmHg. The calculated JR may be underestimated. No aor tic regurgitation is present. Pulmonic Valve The pulmonic valve is not well seen, but is grossly normal. Trace pulmonic valvular regurgitation. Great Vessels The aortic root is normal size. Pericardium/Pleura There is no pericardial effusion. Interpretation Summary Left ventricular systolic function is moderately reduced. Ejection Fraction = 35-40%. The mid to distal anteroseptal, inferolateral, and apical segments are hypokinetic. The right ventricular systolic function is grossly normal. The left atrium is moderately dilated. There is mild mitral annular calcification. There is mild to moderate mitral regurgitation. There is mild tricuspid regurgitation. There is mild pulmonary hypertension. There is moderate aortic sclerosis.; Likely mild to moderate aortic stenosis. The calculated JR is approximately 1.1cm2 with a Mean gradi ent of 12mmHg. The calculated JR may be underestimated. Trace pulmonic valvular regurgitation. There is no pericardial effusion. MD Juan Rose 06/08/2018 12:36 PM
[2018-06-08] MEDS ORDERED: metoPROLOL SUCCINATE 25 MG TAB.SR.24H (FP) PO ONE (12:46)
--- NOTE | 2018-06-08 14:25 | PN ---
Progress Note, Physician Chief Complaint: Events noted Dyspnea persists with exertion History of Present Illness: Patient was seen and examined. Awake and alert. Chart was reviewed Denies chest pain, but complains of SOB on exertion - Current Medication List Current Medications: Active Medications Allopurinol (Zyloprim -) 100 mg PO BID [facility] Last Admin: 06/08/18 09:23 Dose: 100 mg Apixaban (Eliquis -) 2.5 mg PO BID [facility] Last Admin: 06/08/18 09:23 Dose: 2.5 mg Diltiazem HCl (Cardizem Injection -) 10 mg IVPUSH Q4H PRN PRN Reason: TACHYCARDIA Furosemide (Lasix Injection -) 40 mg IVPUSH DAILY [facility] Last Admin: 06/08/18 09:23 Dose: 40 mg Azithromycin (Zithromax 500mg Ivpb (Pre-Docked)) 500 mg in 250 mls @ 250 mls/ hr IVPB DAILY [facility] Last Admin: 06/08/18 10:56 Dose: 250 mls/hr Ceftriaxone Sodium 1 gm/ (Dextrose) 50 mls @ 100 mls/hr IVPB DAILY [facility] Last Admin: 06/08/18 09:25 Dose: 100 mls/hr Metoprolol Succinate (Toprol Xl -) 50 mg PO BID [facility] Metoprolol Succinate (Toprol Xl -) 25 mg PO ONCE ONE Stop: 06/08/18 12:47 [id number] Ethyl Esters (Lovaza -) 1 gm PO BID [facility] Last Admin: 06/08/18 09:23 Dose: 1 gm - Objective Vital Signs: Vital Signs Temperature 98 F 06/08/18 13:46 Pulse Rate 115 H 06/08/18 13:46 Respiratory Rate 17 06/08/18 13:46 Blood Pressure 126/86 06/08/18 13:46 O2 Sat by Pulse Oximetry (%) 99 06/08/18 13:46 HENT: Yes: Atraumatic Neck: Yes: Supple Cardiovascular: Yes: Pulse Irregular, Murmur (ALLIE), S1, S2 Respiratory: Yes: Diminished, Rhonchi, SOB, SOB on Exertion Gastrointestinal: Yes: Normal Bowel Sounds, Soft. No: Tenderness Peripheral Pulses WNL: No Additional Findings/Remarks: - Review of Systems Constitutional: denies: Chills, Fever Cardiovascular: denies: Chest Pain, Palpitations, (+) Shortness of Breath Respiratory: (+) Cough, denies: Hemoptysis, Orthopnea, PND, (+) SOB, SOB on Exertion Gastrointestinal: denies: Nausea. denies: Abdominal Pain, Constipation, Diarrhea, Melena, Rectal Bleeding, Vomiting Genitourinary: denies: Dysuria, Hematuria Musculoskeletal: denies: Back Pain, Joint Pain Neurological: denies: Dizziness, Syncope. denies: Change in Speech, Headache, Numbness, Seizure, Tremors, Unsteady Gait, Weakness Labs: CBC, BMP 06/08/18 06:00 06/08/18 06:00 INR, PTT INR 1.12 (0.83-1.09) H 06/07/18 16:15 Problem List - Problems (1) Acute on chronic systolic heart failure Code(s): I50.23 - ACUTE ON CHRONIC SYSTOLIC (CONGESTIVE) HEART FAILURE (2) Atrial fibrillation with rapid ventricular response Code(s): I48.91 - UNSPECIFIED ATRIAL FIBRILLATION (3) CRF (chronic renal failure) Code(s): N18.9 - CHRONIC KIDNEY DISEASE, UNSPECIFIED (4) Demand ischemia Code(s): I24.8 - OTHER FORMS OF ACUTE ISCHEMIC HEART DISEASE (5) Hypertensive heart disease Code(s): I11.9 - HYPERTENSIVE HEART DISEASE WITHOUT HEART FAILURE Qualifiers: Heart failure presence: with heart failure Heart failure type: combined systolic and diastolic Heart failure chronicity: acute on chronic Qualified Code(s): I11.0 - Hypertensive heart disease with heart failure; I50.43 - Acute on chronic combined systolic (congestive) and diastolic (congestive) heart failure (6) Acute on chronic renal failure Code(s): N17.9 - ACUTE KIDNEY FAILURE, UNSPECIFIED; N18.9 - CHRONIC KIDNEY DISEASE, UNSPECIFIED Qualifiers: Chronic kidney disease stage: stage 3 (moderate) (7) Diverticular hemorrhage Code(s): K57.31 - DVRTCLOS OF LG INT W/O PERFORATION OR ABSCESS W BLEEDING (8) Hypertension Code(s): I10 - ESSENTIAL (PRIMARY) HYPERTENSION Qualifiers: Hypertension type: essential hypertension Qualified Code(s): I10 - Essential (primary) hypertension Assessment/Plan 1. Dyspnea, orthopnea, cough referable to acute on chronic systolic heart failure and subendocardial ischemia +/- URI 2. Persistent atrial fibrillation with RVR on Eliquis - [id number] score of 3-4 3. Hypertension/HCVD 4. Hyperlipidemia 5. COPD 6. Acute on CKD 7. Anemia of chronic disease 8. History of diverticular bleed PLAN: 1. IV diuresis with monitoring renal function and electrolytes - may increase to twice a day for short duration 2. Continue Eliquis 2.5 mg BID, change Lopressor to Metoprolol ER 25 mg BID and hold Losartan pending renal function stabilization 3. Monitor hemoglobin closely and transfuse as needed maintaining hemoglobin 8.0 and above 4. Echocardiography to reassess LV/RV and valvular function 5. Multaq has been discontinued since Apr Further plans are to follow Ras Cleveland MD
--- NOTE | 2018-06-08 16:31 | EKG ---
Test Reason : Blood Pressure : / mmHG Vent. Rate : 122 BPM Atrial Rate : 131 BPM P-R Int : 000 ms QRS Dur : 140 ms QT Int : 322 ms P-R-T Axes : 000 -46 164 degrees QTc Int : 458 ms ATRIAL FIBRILLATION WITH RAPID VENTRICULAR RESPONSE LEFT AXIS DEVIATION LEFT BUNDLE BRANCH BLOCK ABNORMAL ECG WHEN COMPARED WITH ECG OF 17-OCT-2016 14:26, VENT. RATE HAS INCREASED BY 54 BPM T WAVE INVERSION NOW EVIDENT IN INFERIOR LEADS Confirmed by Geremias Almanza ([id number]) on 06/08/2018 4:31:10 PM Referred By: Confirmed By:Geremias Almanza
[2018-06-08] MEDS ORDERED: APIXABAN 5 MG TABLET PO ONE (22:21)
[2018-06-08] MEDS ORDERED: ALLOPURINOL 100 MG TABLET (FP) ONE (22:22)
[2018-06-09] MEDS: FUROSEMIDE 40 MG/4 ML INJECTABLE VIAL IVPUSH SCH ×2 (06:51→13:40)
[2018-06-09 07:01] LABS: HEMATOCRIT 23.6 % (35.4-49); HEMOGLOBIN 7.5 GM/dL (11.7-16.9); MCH 24.3 pg (25.7-33.7); MCHC 31.9 g/dl (32.0-35.9); MEAN CELL VOLUME 76.2 fl (80-96); MEAN PLT VOLUME 9.3 fl (7.5-11.1); PLATELET COUNT 190 K/MM3 (134-434); RDW 17.8 % (11.9-15.9); WHITE BLOOD COUNT 9.6 K/mm3 (4.0-10.0)
[2018-06-09 07:34] LABS: ANION GAP 7 MMOL/L (8-16); BLOOD UREA NITROGEN 58 mg/dL (7-18); CALCIUM 7.6 mg/dL (8.5-10.1); CHLORIDE 115 mmol/L (98-107); CO2 20 mmol/L (21-32); CREATININE 2.8 mg/dL (0.55-1.3); GLUCOSE,RANDOM 97 mg/dL (74-106); MAGNESIUM 1.9 mg/dL (1.8-2.4); POTASSIUM 4.1 mmol/L (3.5-5.1); SODIUM 142 mmol/L (136-145)
[2018-06-09] MEDS ORDERED: PT OWN MED DRAWER 7, Y5N ONE ×2 (09:22→21:46)
[2018-06-09] MEDS ORDERED: DEXTROSE 5%-WATER - 50 ML IVPB ONE (09:23)
[2018-06-09] MEDS ORDERED: cefTRIAXone SODIUM 1 GM VIAL ONE (09:23)
[2018-06-09] MEDS: CEFTRIAXONE 1 GM in DEXTROSE 5%-WATER - 50 ML IVPB SCH (09:44)
[2018-06-09] MEDS: AZITHROMYCIN IVPB 500 MG/250 ML BAG IVPB SCH (09:52)
[2018-06-09] MEDS: ALLOPURINOL 100 MG TABLET (FP) PO SCH ×2 (09:54→21:50)
[2018-06-09] MEDS: OMEGA-3 ACID ETHYL ESTERS (FATTY-ACIDS) 1 GM CAPSULE (FP) PO SCH ×2 (09:54→21:50)
[2018-06-09] MEDS: APIXABAN 2.5 MG TABLET PO SCH ×2 (09:54→21:50)
--- NOTE | 2018-06-09 11:49 | PN ---
Progress Note, Physician History of Present Illness: Pt breathing is about the same. Pt c/o weakness. Pt w/o CP, palp, dizziness, and pain. - Current Medication List Current Medications: Active Medications Allopurinol (Zyloprim -) 100 mg PO BID [facility] Last Admin: 06/09/18 09:54 Dose: 100 mg Apixaban (Eliquis -) 2.5 mg PO BID [facility] Last Admin: 06/09/18 09:54 Dose: 2.5 mg Diltiazem HCl (Cardizem Injection -) 10 mg IVPUSH Q4H PRN PRN Reason: TACHYCARDIA Furosemide (Lasix Injection -) 40 mg IVPUSH BID@0600,1400 [facility] Last Admin: 06/09/18 06:51 Dose: 40 mg Azithromycin (Zithromax 500mg Ivpb (Pre-Docked)) 500 mg in 250 mls @ 250 mls/ hr IVPB DAILY [facility] Last Admin: 06/09/18 09:52 Dose: 250 mls/hr Ceftriaxone Sodium 1 gm/ (Dextrose) 50 mls @ 100 mls/hr IVPB DAILY [facility] Last Admin: 06/09/18 09:44 Dose: 100 mls/hr Metoprolol Succinate (Toprol Xl -) 50 mg PO BID [facility] Last Admin: 06/09/18 09:54 Dose: 50 mg [id number] Ethyl Esters (Lovaza -) 1 gm PO BID [facility] Last Admin: 06/09/18 09:54 Dose: 1 gm - Objective Vital Signs: Vital Signs Temperature 97.8 F 06/09/18 08:15 Pulse Rate 125 H 06/09/18 08:15 Respiratory Rate 20 06/09/18 08:15 Blood Pressure 143/73 06/09/18 08:15 O2 Sat by Pulse Oximetry (%) 99 06/08/18 23:00 Constitutional: Yes: No Distress, Calm Cardiovascular: Yes: Regular Rate and Rhythm, S1, S2 Respiratory: Yes: Regular, Rhonchi (at right base). No: Wheezes Gastrointestinal: Yes: Normal Bowel Sounds, Soft. No: Tenderness Edema: No Neurological: Yes: Alert, Oriented Labs: CBC, BMP 06/09/18 06:30 06/09/18 06:30 INR, PTT INR 1.12 (0.83-1.09) H 06/07/18 16:15 Problem List - Problems (1) Atrial fibrillation with rapid ventricular response Code(s): I48.91 - UNSPECIFIED ATRIAL FIBRILLATION (2) Acute on chronic systolic heart failure Code(s): I50.23 - ACUTE ON CHRONIC SYSTOLIC (CONGESTIVE) HEART FAILURE (3) PNA (pneumonia) Code(s): J18.9 - PNEUMONIA, UNSPECIFIED ORGANISM (4) Demand ischemia Code(s): I24.8 - OTHER FORMS OF ACUTE ISCHEMIC HEART DISEASE (5) CRF (chronic renal failure) Code(s): N18.9 - CHRONIC KIDNEY DISEASE, UNSPECIFIED (6) Hypertension Code(s): I10 - ESSENTIAL (PRIMARY) HYPERTENSION Qualifiers: Hypertension type: essential hypertension Qualified Code(s): I10 - Essential (primary) hypertension (7) Anemia Code(s): D64.9 - ANEMIA, UNSPECIFIED Assessment/Plan Admitted to Telemetry. Transfuse PRBC; send Iron studies (before transfusion) Serial CE (Trop I is trending down); to monitor. Cardizem IVP for HR control Cardio Consult is appreciated. IV abtx AM labs
--- NOTE | 2018-06-09 14:48 | PN ---
Progress Note, Physician History of Present Illness: Cough, dyspnea, orthopnea resolving with diuresis, 9 lbs weight loss since admission. Undergoing transfusion 1 U pRBC. - Current Medication List Current Medications: Active Medications Allopurinol (Zyloprim -) 100 mg PO BID [facility] Last Admin: 06/09/18 09:54 Dose: 100 mg Apixaban (Eliquis -) 2.5 mg PO BID [facility] Last Admin: 06/09/18 09:54 Dose: 2.5 mg Diltiazem HCl (Cardizem Injection -) 10 mg IVPUSH Q4H PRN PRN Reason: TACHYCARDIA Furosemide (Lasix Injection -) 40 mg IVPUSH BID@0600,1400 [facility] Last Admin: 06/09/18 13:40 Dose: 40 mg Azithromycin (Zithromax 500mg Ivpb (Pre-Docked)) 500 mg in 250 mls @ 250 mls/ hr IVPB DAILY [facility] Last Admin: 06/09/18 09:52 Dose: 250 mls/hr Ceftriaxone Sodium 1 gm/ (Dextrose) 50 mls @ 100 mls/hr IVPB DAILY [facility] Last Admin: 06/09/18 09:44 Dose: 100 mls/hr Metoprolol Succinate (Toprol Xl -) 50 mg PO BID [facility] Last Admin: 06/09/18 09:54 Dose: 50 mg [id number] Ethyl Esters (Lovaza -) 1 gm PO BID [facility] Last Admin: 06/09/18 09:54 Dose: 1 gm - Objective Vital Signs: Vital Signs Temperature 97.4 F L 06/09/18 13:44 Pulse Rate 107 H 06/09/18 13:44 Respiratory Rate 22 H 06/09/18 13:44 Blood Pressure 115/75 06/09/18 13:44 O2 Sat by Pulse Oximetry (%) 98 06/09/18 09:00 Constitutional: Yes: No Distress, Calm Neck: Yes: Supple Cardiovascular: Yes: Pulse Irregular, Murmur (2/6 SM) Respiratory: Yes: Regular, Diminished Gastrointestinal: Yes: Normal Bowel Sounds, Soft Edema: No Labs: CBC, BMP 06/09/18 06:30 06/09/18 06:30 INR, PTT INR 1.12 (0.83-1.09) H 06/07/18 16:15 - ....Imaging EKG: Report Reviewed (Tele: Estefani LBBB) Problem List - Problems (1) Acute on chronic systolic heart failure Code(s): I50.23 - ACUTE ON CHRONIC SYSTOLIC (CONGESTIVE) HEART FAILURE (2) Atrial fibrillation with rapid ventricular response Code(s): I48.91 - UNSPECIFIED ATRIAL FIBRILLATION (3) Hypertensive heart disease Code(s): I11.9 - HYPERTENSIVE HEART DISEASE WITHOUT HEART FAILURE Qualifiers: Heart failure presence: with heart failure Heart failure type: combined systolic and diastolic Heart failure chronicity: acute on chronic Qualified Code(s): I11.0 - Hypertensive heart disease with heart failure; I50.43 - Acute on chronic combined systolic (congestive) and diastolic (congestive) heart failure (4) Chronic anticoagulation Code(s): Z79.01 - [employer]OYEE [employer] RN (CURRENT) USE OF ANTICOAGULANTS (5) Acute on chronic renal failure Code(s): N17.9 - ACUTE KIDNEY FAILURE, UNSPECIFIED; N18.9 - CHRONIC KIDNEY DISEASE, UNSPECIFIED Qualifiers: Chronic kidney disease stage: stage 3 (moderate) (6) Diverticulosis Code(s): K57.90 - DVRTCLOS OF INTEST, PART UNSP, W/O PERF OR ABSCESS W/O BLEED Qualifiers: Diverticulosis site: unspecified location Diverticulosis bleeding: diverticulosis without bleeding Qualified Code(s): K57.90 - Diverticulosis of intestine, part unspecified, without perforation or abscess without bleeding (7) Subendocardial ischemia Code(s): I24.8 - OTHER FORMS OF ACUTE ISCHEMIC HEART DISEASE Assessment/Plan Echo: 06/08/2018 Moderate decreased LVEF 35-40%, mid-distal anteroseptal, inferolateral, apical HK, normal RV size and fxn, mod LAE, mild-mod MR, mild TR , mild pulm HTN, mild JR 1.1 cm^2, MG=11 mmHG, Tr SD Echo 11/19/2017 Normal LV size, mild LVH, moderate decreased LVEF 35-40% with HK of apex, apical septum, apical inferior, apical lateral, mid anteroseptum, mid anterolateral basal anterolateral, basal anteroseptum and basal inferolateral segments, severe LAE, mild DOE, normal RV size and fxn, mild MR, TR, SD, RVSO 32 mmHg 1. Dyspnea, orthopnea, cough referable to acute on chronic systolic heart failure and subendocardial ischemia resolving 2. Persistent atrial fibrillation with RVR on Eliquis - [id number] score of 3-4 3, Mild aortic stenosis 4. Hypertension/HCVD 5. Hyperlipidemia 6. COPD 7. Acute on CKD 8. Anemia of chronic disease post transfusion 9. History of diverticular bleed PLAN: 1. Decrease IV diuresis with monitoring diuretic response, renal function and electrolytes 2. Continue Eliquis 2.5 mg BID, Metoprolol ER 50 mg BID, Lovaza 1 bid and hold Losartan pending renal function stabilization 3. Monitor hemoglobin closely and transfuse as needed maintaining hemoglobin 8.0 and above
[2018-06-10 04:18] LABS: SERUM IRON SATURATION 5 % (15-55); TOTAL IRON BINDING CAPACITY 333 ug/dL (250-450); UIBC 317 ug/dL (111-343)
[2018-06-10 07:26] LABS: HEMATOCRIT 29.2 % (35.4-49); HEMOGLOBIN 9.5 GM/dL (11.7-16.9); MCH 25.2 pg (25.7-33.7); MCHC 32.6 g/dl (32.0-35.9); MEAN CELL VOLUME 77.2 fl (80-96); MEAN PLT VOLUME 9.3 fl (7.5-11.1); PLATELET COUNT 213 K/MM3 (134-434); RBC 3.78 M/mm3 (4.00-5.60); RDW 18.1 % (11.9-15.9)
[2018-06-10 07:59] LABS: ANION GAP 11 MMOL/L (8-16); BLOOD UREA NITROGEN 64 mg/dL (7-18); CALCIUM 7.7 mg/dL (8.5-10.1); CHLORIDE 110 mmol/L (98-107); CO2 22 mmol/L (21-32); CREATININE 2.9 mg/dL (0.55-1.3); GLUCOSE,RANDOM 80 mg/dL (74-106); POTASSIUM 3.8 mmol/L (3.5-5.1); SODIUM 144 mmol/L (136-145)
[2018-06-10] MEDS ORDERED: FUROSEMIDE 40 MG/4 ML INJECTABLE VIAL IVPUSH SCH (10:00)
[2018-06-10] MEDS ORDERED: PT OWN MED DRAWER 7, Y5N ONE ×2 (10:02→21:07)
[2018-06-10] MEDS ORDERED: cefTRIAXone SODIUM 1 GM VIAL ONE (10:02)
[2018-06-10] MEDS ORDERED: DEXTROSE 5%-WATER - 50 ML IVPB ONE (10:03)
[2018-06-10] MEDS: OMEGA-3 ACID ETHYL ESTERS (FATTY-ACIDS) 1 GM CAPSULE (FP) PO SCH ×2 (10:09→21:19)
[2018-06-10] MEDS: AZITHROMYCIN IVPB 500 MG/250 ML BAG IVPB SCH (10:09)
[2018-06-10] MEDS: CEFTRIAXONE 1 GM in DEXTROSE 5%-WATER - 50 ML IVPB SCH (10:09)
[2018-06-10] MEDS: APIXABAN 2.5 MG TABLET PO SCH ×2 (10:10→21:19)
[2018-06-10] MEDS: ALLOPURINOL 100 MG TABLET (FP) PO SCH ×2 (10:10→21:19)
--- NOTE | 2018-06-10 12:20 | PN ---
Progress Note, Physician History of Present Illness: Cough, dyspnea, orthopnea resolving with diuresis, 9 lbs weight loss since admission. Underwent transfusion 1 U pRBC. - Current Medication List Current Medications: Active Medications Allopurinol (Zyloprim -) 100 mg PO BID [facility] Last Admin: 06/10/18 10:10 Dose: 100 mg Apixaban (Eliquis -) 2.5 mg PO BID [facility] Last Admin: 06/10/18 10:10 Dose: 2.5 mg Diltiazem HCl (Cardizem Injection -) 10 mg IVPUSH Q4H PRN PRN Reason: TACHYCARDIA Furosemide (Lasix Injection -) 40 mg IVPUSH DAILY [facility] Last Admin: 06/10/18 10:10 Dose: 40 mg Azithromycin (Zithromax 500mg Ivpb (Pre-Docked)) 500 mg in 250 mls @ 250 mls/ hr IVPB DAILY [facility] Last Admin: 06/10/18 10:09 Dose: 250 mls/hr Ceftriaxone Sodium 1 gm/ (Dextrose) 50 mls @ 100 mls/hr IVPB DAILY [facility] Last Admin: 06/10/18 10:09 Dose: 100 mls/hr Metoprolol Succinate (Toprol Xl -) 50 mg PO BID [facility] Last Admin: 06/10/18 10:10 Dose: 50 mg [id number] Ethyl Esters (Lovaza -) 1 gm PO BID [facility] Last Admin: 06/10/18 10:09 Dose: 1 gm - Objective Vital Signs: Vital Signs Temperature 97.1 F L 06/10/18 05:28 Pulse Rate 74 06/10/18 05:28 Respiratory Rate 20 06/10/18 05:28 Blood Pressure 134/89 06/10/18 05:28 O2 Sat by Pulse Oximetry (%) 97 06/09/18 21:00 Constitutional: Yes: No Distress, Calm, Thin Neck: Yes: Supple Cardiovascular: Yes: Tachycardia, Pulse Irregular Respiratory: Yes: Regular, Diminished Gastrointestinal: Yes: Normal Bowel Sounds, Soft Edema: No Labs: CBC, BMP 06/10/18 06:30 06/10/18 06:30 INR, PTT INR 1.12 (0.83-1.09) H 06/07/18 16:15 - ....Imaging EKG: Report Reviewed (Tele: Rapid afib) Problem List - Problems (1) Acute on chronic systolic heart failure Code(s): I50.23 - ACUTE ON CHRONIC SYSTOLIC (CONGESTIVE) HEART FAILURE (2) Atrial fibrillation with rapid ventricular response Code(s): I48.91 - UNSPECIFIED ATRIAL FIBRILLATION (3) Hypertensive heart disease Code(s): I11.9 - HYPERTENSIVE HEART DISEASE WITHOUT HEART FAILURE Qualifiers: Heart failure presence: with heart failure Heart failure type: combined systolic and diastolic Heart failure chronicity: acute on chronic Qualified Code(s): I11.0 - Hypertensive heart disease with heart failure; I50.43 - Acute on chronic combined systolic (congestive) and diastolic (congestive) heart failure (4) Chronic anticoagulation Code(s): Z79.01 - HALF-WAY (CURRENT) USE OF ANTICOAGULANTS (5) Acute on chronic renal failure Code(s): N17.9 - ACUTE KIDNEY FAILURE, UNSPECIFIED; N18.9 - CHRONIC KIDNEY DISEASE, UNSPECIFIED Qualifiers: Chronic kidney disease stage: stage 3 (moderate) (6) Diverticulosis Code(s): K57.90 - DVRTCLOS OF INTEST, PART UNSP, W/O PERF OR ABSCESS W/O BLEED Qualifiers: Diverticulosis site: unspecified location Diverticulosis bleeding: diverticulosis without bleeding Qualified Code(s): K57.90 - Diverticulosis of intestine, part unspecified, without perforation or abscess without bleeding (7) Subendocardial ischemia Code(s): I24.8 - OTHER FORMS OF ACUTE ISCHEMIC HEART DISEASE Assessment/Plan Echo: 06/08/2018 Moderate decreased LVEF 35-40%, mid-distal anteroseptal, inferolateral, apical HK, normal RV size and fxn, mod LAE, mild-mod MR, mild TR , mild pulm HTN, mild JR 1.1 cm^2, MG=11 mmHG, Tr CO Echo 11/19/2017 Normal LV size, mild LVH, moderate decreased LVEF 35-40% with HK of apex, apical septum, apical inferior, apical lateral, mid anteroseptum, mid anterolateral basal anterolateral, basal anteroseptum and basal inferolateral segments, severe LAE, mild DOE, normal RV size and fxn, mild MR, TR, CO, RVSO 32 mmHg 1. Dyspnea, orthopnea, cough referable to acute on chronic systolic heart failure and subendocardial ischemia resolving 2. Persistent atrial fibrillation with RVR on Eliquis - [id number] score of 3-4 3, Mild aortic stenosis 4. Hypertension/HCVD 5. Hyperlipidemia 6. COPD 7. Acute on CKD 8. Anemia of chronic disease post 1 u pRBC transfusion 9. History of diverticular bleed PLAN: 1. Change to oral diuresis with monitoring diuretic response, renal function and electrolytes 2. Continue Eliquis 2.5 mg BID, Metoprolol ER 50 mg BID, Lovaza 1 bid and hold Losartan pending renal function stabilization 3. Monitor hemoglobin closely and transfuse as needed maintaining hemoglobin 8.0 and above
--- NOTE | 2018-06-10 16:50 | PN ---
Progress Note, Physician History of Present Illness: Pt breathing is a little better. Pt c/o weakness. Pt w/o CP, palp, dizziness, abd pain, nausea, vomiting, blood in stool, black stool. - Current Medication List Current Medications: Active Medications Allopurinol (Zyloprim -) 100 mg PO BID [facility] Last Admin: 06/10/18 10:10 Dose: 100 mg Apixaban (Eliquis -) 2.5 mg PO BID [facility] Last Admin: 06/10/18 10:10 Dose: 2.5 mg Diltiazem HCl (Cardizem Injection -) 10 mg IVPUSH Q4H PRN PRN Reason: TACHYCARDIA Furosemide (Lasix -) 20 mg PO DAILY [facility] Azithromycin (Zithromax 500mg Ivpb (Pre-Docked)) 500 mg in 250 mls @ 250 mls/ hr IVPB DAILY [facility] Last Admin: 06/10/18 10:09 Dose: 250 mls/hr Ceftriaxone Sodium 1 gm/ (Dextrose) 50 mls @ 100 mls/hr IVPB DAILY [facility] Last Admin: 06/10/18 10:09 Dose: 100 mls/hr Metoprolol Succinate (Toprol Xl -) 50 mg PO BID [facility] Last Admin: 06/10/18 10:10 Dose: 50 mg [id number]-[id number] Ethyl Esters (Lovaza -) 1 gm PO BID [facility] Last Admin: 06/10/18 10:09 Dose: 1 gm - Objective Vital Signs: Vital Signs Temperature 97.5 F L 06/10/18 14:06 Pulse Rate 74 06/10/18 14:06 Respiratory Rate 18 06/10/18 14:06 Blood Pressure 119/68 06/10/18 14:06 O2 Sat by Pulse Oximetry (%) 97 06/10/18 09:00 Constitutional: Yes: No Distress, Calm Cardiovascular: Yes: Regular Rate and Rhythm, S1, S2 Respiratory: Yes: Regular, Rhonchi (at bases and right lower lobe.) Gastrointestinal: Yes: Normal Bowel Sounds, Soft, Abdomen, Obese. No: Palpable Mass, Tenderness Edema: No Neurological: Yes: Alert, Oriented Labs: CBC, BMP 06/10/18 06:30 06/10/18 06:30 INR, PTT INR 1.12 (0.83-1.09) H 06/07/18 16:15 Problem List - Problems (1) Atrial fibrillation with rapid ventricular response Code(s): I48.91 - UNSPECIFIED ATRIAL FIBRILLATION (2) Acute on chronic systolic heart failure Code(s): I50.23 - ACUTE ON CHRONIC SYSTOLIC (CONGESTIVE) HEART FAILURE (3) PNA (pneumonia) Code(s): J18.9 - PNEUMONIA, UNSPECIFIED ORGANISM (4) Demand ischemia Code(s): I24.8 - OTHER FORMS OF ACUTE ISCHEMIC HEART DISEASE (5) CRF (chronic renal failure) Code(s): N18.9 - CHRONIC KIDNEY DISEASE, UNSPECIFIED (6) Hypertension Code(s): I10 - ESSENTIAL (PRIMARY) HYPERTENSION Qualifiers: Hypertension type: essential hypertension Qualified Code(s): I10 - Essential (primary) hypertension (7) Anemia Assessment/Plan: microcytic anemia Code(s): D64.9 - ANEMIA, UNSPECIFIED Qualifiers: Iron deficiency anemia type: unspecified iron deficiency Assessment/Plan Admitted to Telemetry. Transfuse PRBC. I reviewed Iron studies and are consistant with microcytic anemia. GI consult Serial CE (Trop I is trending down); to monitor. Cardizem IVP for HR control Cardio Consult is appreciated. IV abtx AM labs
--- NOTE | 2018-06-10 19:51 | CON.GI ---
Consult Consult Specialty:: Gastroenterology Referred by:: Dr. Gatse Reason for Consultation:: anemia - History of Present Illness Chief Complaint: Dyspnea History of Present Illness: 82M is admitted with acute on chronic CHF is also found to have microcytic anemia. He tells me that he is a patient of Dr. Marshall and that Dr Marshall has removed colon polyps on multiple occasions. He cannot recall when he last had a colonoscopy and Dr. Marshall's note does not allude to the date. This is no record of a recent colonoscopy here. Yuri denies rectal bleeding , constipation, abdominal pain, dysphagia or early satiety. He denies any FH of colon or other cancers. He denies ever having had an ulcer. He had a diverticular bleed in 10/11. - History Source History Provided By: Patient - Past Medical History Cardio/Vascular: Yes: AFIB, CHF, HTN Pulmonary: Yes: COPD Gastrointestinal: Yes: Diverticulosis, GI Bleed (diverticular bleed 10/11), Other (IPMN PANCREAS, multiple colon polyps removed) Renal/: Yes: Renal Inusuff Musculoskeletal: Yes: Osteoarthritis Rheumatology: Yes: Gout - Past Surgical History Past Surgical History: Yes: Appendectomy, Cholecystectomy, Tonsillectomy - Alcohol/Substance Use Hx Alcohol Use: Yes (rare beer on holidays) - Smoking History Smoking history: Former smoker Have you smoked in the past 12 months: No Aproximately how many cigarettes per day: 20 If you are a former smoker, when did you quit?: 20 YRS AGO - Social History Usual Living Arrangement: Alone () ADL: Independent Occupation: retired [place]. [employer] [facility] [place] of : [employer] History of Recent Travel: No Home Medications - Allergies Allergies/Adverse Reactions: Allergies Allergy/AdvReac Type Severity Reaction Status Date / Time No Known Allergies Allergy Verified 06/07/18 18:03 - Home Medications Home Medications: Ambulatory Orders Allopurinol [Zyloprim -] 100 mg PO BID 12/28/12 Chlorthalidone [Hygroton -] 25 mg PO BID 12/28/12 Metoprolol Succinate [Toprol XL -] 25 mg PO BID 12/28/12 Calhoun-3 Acid Ethyl Esters [Lovaza -] 1 tab PO BID 12/28/12 Amlodipine/Atorvastatin [Caduet 10 mg-10 mg Tablet] 20 mg PO DAILY 08/09/17 Dronedarone HCl [Multaq] 400 mg PO DAILY 08/09/17 Family Disease History - Family Disease History Family Disease History: CA: Mother (PANCREAS), Other: Father ( in his 90s) Review of Systems - Review of Systems Constitutional: reports: No Symptoms Eyes: reports: No Symptoms HENT: reports: No Symptoms Neck: reports: No Symptoms Cardiovascular: reports: Palpitations, Shortness of Breath Respiratory: reports: Exercise Intolerance Gastrointestinal: reports: No Symptoms Genitourinary: reports: No Symptoms Physical Exam-GI Vital Signs: Vital Signs Temperature 97.5 F L 06/10/18 14:06 Pulse Rate 74 06/10/18 14:06 Respiratory Rate 18 06/10/18 14:06 Blood Pressure 119/68 06/10/18 14:06 O2 Sat by Pulse Oximetry (%) 97 06/10/18 09:00 CBC,CMP WBC 10.0 K/mm3 (4.0-10.0) 06/10/18 06:30 RBC 3.78 M/mm3 (4.00-5.60) L 06/10/18 06:30 Hgb 9.5 GM/dL (11.7-16.9) L 06/10/18 06:30 Hct 29.2 % (35.4-49) L D 06/10/18 06:30 MCV 77.2 fl (80-96) L 06/10/18 06:30 MCH 25.2 pg (25.7-33.7) L 06/10/18 06:30 MCHC 32.6 g/dl (32.0-35.9) 06/10/18 06:30 RDW 18.1 % (11.9-15.9) H 06/10/18 06:30 Plt Count 213 K/MM3 (134-434) 06/10/18 06:30 MPV 9.3 fl (7.5-11.1) 06/10/18 06:30 Absolute Neuts (auto) 5.1 K/mm3 (1.5-8.0) 06/07/18 15:57 Neutrophils % 80.3 % (42.8-82.8) D 06/07/18 15:57 Lymphocytes % 13.3 % (8-40) D 06/07/18 15:57 Monocytes % 6.3 % (3.8-10.2) 06/07/18 15:57 Eosinophils % 0.0 % (0-4.5) D 06/07/18 15:57 Basophils % 0.1 % (0-2.0) 06/07/18 15:57 Nucleated RBC % 0 % (0-0) 06/07/18 15:57 Retic Count 1.43 % (0.5-1.5) 06/09/18 12:50 Sodium 144 mmol/L (136-145) 06/10/18 06:30 Potassium 3.8 mmol/L (3.5-5.1) 06/10/18 06:30 Chloride 110 mmol/L (98-107) H 06/10/18 06:30 Carbon Dioxide 22 mmol/L (21-32) 06/10/18 06:30 Anion Gap 11 MMOL/L (8-16) 06/10/18 06:30 BUN 64 mg/dL (7-18) H 06/10/18 06:30 Creatinine 2.9 mg/dL (0.55-1.3) H 06/10/18 06:30 Creat Clearance w eGFR 20.89 (>60) 06/10/18 06:30 Random Glucose 80 mg/dL (74-106) 06/10/18 06:30 Calcium 7.7 mg/dL (8.5-10.1) L 06/10/18 06:30 Magnesium 1.9 mg/dL (1.8-2.4) 06/09/18 06:30 Iron 16 ug/dL (38-169) L 06/09/18 12:50 TIBC 333 ug/dL (250-450) 06/09/18 12:50 Iron Saturation 5 % (15-55) L 06/09/18 12:50 Total Bilirubin 0.6 mg/dL (0.2-1) 06/07/18 15:57 AST 21 U/L (15-37) 06/07/18 15:57 ALT 23 U/L (13-61) 06/07/18 15:57 Alkaline Phosphatase 135 U/L (45-117) H 06/07/18 15:57 Creatine Kinase 372 U/L (26-308) H 06/09/18 12:50 Creatine Kinase Index 3.0 % (0.0-5.0) 06/09/18 12:50 CK-MB (CK-2) 11.5 ng/mL (0.5-3.6) H 06/09/18 12:50 Troponin I 0.12 ng/ml (0.00-0.05) H 06/09/18 12:50 B-Natriuretic Peptide 00109.3 pg/ml (5-450) H 06/07/18 16:15 Total Protein 6.0 g/dl (6.4-8.2) L 06/07/18 15:57 Albumin 3.0 g/dl (3.4-5.0) L 06/07/18 15:57 Vitamin B12 1108 pg/ml (193-986) H 06/09/18 12:50 Current Medications Generic Name Dose Route Start Last Admin Trade Name Freq PRN Reason Stop Dose Admin Allopurinol 100 mg 06/08/18 10:00 06/10/18 10:10 Zyloprim - PO 100 mg BID [facility] Administration Apixaban 2.5 mg 06/07/18 22:00 06/10/18 10:10 Eliquis - PO 2.5 mg BID [facility] Administration Diltiazem HCl 10 mg 06/07/18 19:07 Cardizem Injection - IVPUSH Q4H PRN TACHYCARDIA Furosemide 20 mg 06/11/18 10:00 Lasix - PO DAILY [facility] Azithromycin 500 mg in 250 mls @ 250 mls/hr 06/08/18 10:00 06/10/18 10:09 Zithromax 500mg Ivpb (Pre-Docked) IVPB 250 mls/hr DAILY [facility] Administration Ceftriaxone Sodium 1 gm/ 50 mls @ 100 mls/hr 06/08/18 10:00 06/10/18 10:09 Dextrose IVPB 100 mls/hr DAILY [facility] Administration Metoprolol Succinate 50 mg 06/08/18 22:00 06/10/18 10:10 Toprol Xl - PO 50 mg BID [facility] Administration Fogil-0-Dtbz Ethyl Esters 1 gm 06/08/18 10:00 06/10/18 10:09 Lovaza - PO 1 gm BID [facility] Administration Constitutional: Yes: No Distress Eyes: Yes: Conjunctiva Clear HENT: Yes: Atraumatic Neck: Yes: Supple Cardiovascular: Yes: Pulse Irregular Respiratory: Yes: CTA Bilaterally Gastrointestinal Inspection: Yes: Scars (healed oblique RUQ and RLQ incisions) ...Auscultate: Yes: Normoactive Bowel Sounds ...Palpate: Yes: Soft, Other (nontender) ...Rectal Exam: Yes: Guaiac Negative (2+ prostate, brown guaiac negative stool) Neurological: Yes: Alert Labs: CBC, BMP 06/10/18 06:30 06/10/18 06:30 INR, PTT INR 1.12 (0.83-1.09) H 06/07/18 16:15 Laboratory Tests 06/07/18 06/07/18 06/09/18 15:57 15:57 06:30 Hgb 8.4 L 7.5 L BUN Creatinine Total Bilirubin 0.6 AST 21 ALT 23 Alkaline Phosphatase 135 H 06/10/18 06/10/18 06:30 06:30 Hgb 9.5 L BUN 64 H Creatinine 2.9 H Total Bilirubin AST ALT Alkaline Phosphatase Laboratory Tests 06/09/18 12:50 Iron 16 L TIBC 333 Iron Saturation 5 L Problem List - Problems (1) Anemia Assessment/Plan: Yuri's microcytic indices suggest chronic GI blood loss however his stool is guaiac negative at present. He should ideally have repeat panendoscopy but the endoscopy suite will be closed on Thursday so will need to defer to an outpatient workup. I gave him my business card should he decide that Dr. Marshall is now located too far away. Code(s): D64.9 - ANEMIA, UNSPECIFIED (2) Colon polyps Code(s): K63.5 - POLYP OF COLON (3) IPMN (intraductal papillary mucinous neoplasm) Assessment/Plan: Linda renal failure contraindicates a contrast CT or MRI Code(s): D49.0 - NEOPLASM OF UNSPECIFIED BEHAVIOR OF DIGESTIVE SYSTEM (4) Acute on chronic systolic heart failure Code(s): I50.23 - ACUTE ON CHRONIC SYSTOLIC (CONGESTIVE) HEART FAILURE (5) Atrial fibrillation with rapid ventricular response Code(s): I48.91 - UNSPECIFIED ATRIAL FIBRILLATION (6) Diverticular hemorrhage Code(s): K57.31 - DVRTCLOS OF LG INT W/O PERFORATION OR ABSCESS W BLEEDING (7) Diverticulosis Code(s): K57.90 - DVRTCLOS OF INTEST, PART UNSP, W/O PERF OR ABSCESS W/O BLEED Qualifiers: Diverticulosis site: unspecified location Diverticulosis bleeding: diverticulosis without bleeding Qualified Code(s): K57.90 - Diverticulosis of intestine, part unspecified, without perforation or abscess without bleeding Assessment/Plan Despite the lack of overt brisk GI bleeding or ever occult bleeding Yuri should ideally have repeat panendoscopy. 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 I gave him my busioness card
[2018-06-11 06:38] LABS: BASO % 0.3 % (0-2.0); EOS % 0.1 % (0-4.5); HEMATOCRIT 34.4 % (35.4-49); HEMOGLOBIN 11.1 GM/dL (11.7-16.9); LYMPH % 17.8 % (8-40); MCH 25.2 pg (25.7-33.7); MCHC 32.3 g/dl (32.0-35.9); MEAN CELL VOLUME 77.8 fl (80-96); MEAN PLT VOLUME 9.2 fl (7.5-11.1); MONO % 7.6 % (3.8-10.2); NEUT % 74.2 % (42.8-82.8); PLATELET COUNT 262 K/MM3 (134-434); RBC 4.43 M/mm3 (4.00-5.60); RDW 18.1 % (11.9-15.9); RETICULOCYTES 2.09 % (0.5-1.5); WHITE BLOOD COUNT 9.6 K/mm3 (4.0-10.0)
[2018-06-11 06:54] LABS: ALBUMIN 3.1 g/dl (3.4-5.0); ALK PHOS 121 U/L (45-117); ANION GAP 10 MMOL/L (8-16); BILIRUBIN,TOTAL 0.7 mg/dL (0.2-1); BLOOD UREA NITROGEN 67 mg/dL (7-18); CALCIUM 8.1 mg/dL (8.5-10.1); CHLORIDE 107 mmol/L (98-107); CO2 23 mmol/L (21-32); CREATININE 2.8 mg/dL (0.55-1.3); GLUCOSE,RANDOM 93 mg/dL (74-106); POTASSIUM 3.5 mmol/L (3.5-5.1); SGOT/AST 27 U/L (15-37); SGPT/ALT 29 U/L (13-61); SODIUM 140 mmol/L (136-145); TOT PROT 6.2 g/dl (6.4-8.2)
[2018-06-11] MEDS ORDERED: IRON SUCROSE INJECTION 200 MG in SODIUM CHLORIDE 90 ML IVPB ONE (09:00)
--- NOTE | 2018-06-11 10:43 | PN ---
Progress Note, Physician History of Present Illness: Cough, dyspnea, orthopnea resolving with diuresis, 17 lbs weight loss since admission. Underwent transfusion 1 U pRBC. GI input noted. Rapid afib noted. - Current Medication List Current Medications: Active Medications Allopurinol (Zyloprim -) 100 mg PO BID [facility] Last Admin: 06/10/18 21:19 Dose: 100 mg Apixaban (Eliquis -) 2.5 mg PO BID [facility] Last Admin: 06/10/18 21:19 Dose: 2.5 mg Diltiazem HCl (Cardizem Injection -) 10 mg IVPUSH Q4H PRN PRN Reason: TACHYCARDIA Furosemide (Lasix -) 20 mg PO DAILY [facility] Azithromycin (Zithromax 500mg Ivpb (Pre-Docked)) 500 mg in 250 mls @ 250 mls/ hr IVPB DAILY [facility] Last Admin: 06/10/18 10:09 Dose: 250 mls/hr Ceftriaxone Sodium 1 gm/ (Dextrose) 50 mls @ 100 mls/hr IVPB DAILY [facility] Last Admin: 06/10/18 10:09 Dose: 100 mls/hr Metoprolol Succinate (Toprol Xl -) 50 mg PO BID [facility] Last Admin: 06/10/18 21:19 Dose: 50 mg [id number]-0-[id number] Ethyl Esters (Lovaza -) 1 gm PO BID [facility] Last Admin: 06/10/18 21:19 Dose: 1 gm - Objective Vital Signs: Vital Signs Temperature 96.8 F L 06/11/18 09:03 Pulse Rate 76 06/11/18 09:03 Respiratory Rate 18 06/11/18 09:03 Blood Pressure 155/84 06/11/18 09:03 O2 Sat by Pulse Oximetry (%) 97 06/10/18 21:00 Constitutional: Yes: No Distress, Calm, Thin Neck: Yes: Supple Cardiovascular: Yes: Tachycardia, Pulse Irregular Respiratory: Yes: Regular, Diminished Gastrointestinal: Yes: Soft, Hypoactive Bowel Sounds Edema: No Labs: CBC, BMP 06/11/18 06:00 06/11/18 06:00 INR, PTT INR 1.12 (0.83-1.09) H 06/07/18 16:15 - ....Imaging EKG: Report Reviewed (Tele: Rapid afib) Problem List - Problems (1) Acute on chronic systolic heart failure Code(s): I50.23 - ACUTE ON CHRONIC SYSTOLIC (CONGESTIVE) HEART FAILURE (2) Atrial fibrillation with rapid ventricular response Code(s): I48.91 - UNSPECIFIED ATRIAL FIBRILLATION (3) Hypertensive heart disease Code(s): I11.9 - HYPERTENSIVE HEART DISEASE WITHOUT HEART FAILURE Qualifiers: Heart failure presence: with heart failure Heart failure type: combined systolic and diastolic Heart failure chronicity: acute on chronic Qualified Code(s): I11.0 - Hypertensive heart disease with heart failure; I50.43 - Acute on chronic combined systolic (congestive) and diastolic (congestive) heart failure (4) Chronic anticoagulation Code(s): Z79.01 - [facility] (CURRENT) USE OF ANTICOAGULANTS (5) Acute on chronic renal failure Code(s): N17.9 - ACUTE KIDNEY FAILURE, UNSPECIFIED; N18.9 - CHRONIC KIDNEY DISEASE, UNSPECIFIED Qualifiers: Chronic kidney disease stage: stage 3 (moderate) (6) Diverticulosis Code(s): K57.90 - DVRTCLOS OF INTEST, PART UNSP, W/O PERF OR ABSCESS W/O BLEED Qualifiers: Diverticulosis site: unspecified location Diverticulosis bleeding: diverticulosis without bleeding Qualified Code(s): K57.90 - Diverticulosis of intestine, part unspecified, without perforation or abscess without bleeding (7) Subendocardial ischemia Code(s): I24.8 - OTHER FORMS OF ACUTE ISCHEMIC HEART DISEASE Assessment/Plan Echo: 06/08/2018 Moderate decreased LVEF 35-40%, mid-distal anteroseptal, inferolateral, apical HK, normal RV size and fxn, mod LAE, mild-mod MR, mild TR , mild pulm HTN, mild JR 1.1 cm^2, MG=11 mmHG, Tr NC Echo 11/19/2017 Normal LV size, mild LVH, moderate decreased LVEF 35-40% with HK of apex, apical septum, apical inferior, apical lateral, mid anteroseptum, mid anterolateral basal anterolateral, basal anteroseptum and basal inferolateral segments, severe LAE, mild DOE, normal RV size and fxn, mild MR, TR, NC, RVSO 32 mmHg 1. Dyspnea, orthopnea, cough referable to acute on chronic systolic heart failure and subendocardial ischemia resolving 2. Persistent atrial fibrillation with RVR on Eliquis - [id number] score of 3-4 3. Mild aortic stenosis 4. Hypertension/HCVD 5. Hyperlipidemia 6. COPD 7. Acute on CKD 8. 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 History of diverticular bleed PLAN: 1. Continue oral diuresis with monitoring diuretic response, renal function and electrolytes 2. Continue Eliquis 2.5 mg BID with GI protection, increase Metoprolol ER 100 mg BID, Lovaza 1 bid and hold Losartan pending renal function stabilization 3. Monitor hemoglobin closely and transfuse as needed maintaining hemoglobin 8.0 and above 4. Panendoscopy as outpatient
[2018-06-11] MEDS ORDERED: cefTRIAXone SODIUM 1 GM VIAL ONE (11:38)
[2018-06-11] MEDS ORDERED: DEXTROSE 5%-WATER - 50 ML IVPB ONE (11:38)
[2018-06-11] MEDS: FUROSEMIDE 20 MG TABLET (FP) PO SCH (11:54)
[2018-06-11] MEDS: AZITHROMYCIN IVPB 500 MG/250 ML BAG IVPB SCH (11:54)
[2018-06-11] MEDS: ALLOPURINOL 100 MG TABLET (FP) PO SCH ×2 (11:54→21:12)
[2018-06-11] MEDS: APIXABAN 2.5 MG TABLET PO SCH ×2 (11:54→21:12)
[2018-06-11] MEDS: CEFTRIAXONE 1 GM in DEXTROSE 5%-WATER - 50 ML IVPB SCH (11:55)
[2018-06-11] MEDS: OMEGA-3 ACID ETHYL ESTERS (FATTY-ACIDS) 1 GM CAPSULE (FP) PO SCH ×2 (11:59→21:12)
[2018-06-11] MEDS ORDERED: PT OWN MED DRAWER 7, Y5N ONE ×2 (11:59→21:10)
[2018-06-11 12:02] LABS: ANISOCYTOSIS 1+; MACROCYTOSIS 0; OVALOCYTE 1+; PLATELET ESTIMATE NORMAL; TEAR DROP CELLS 1+
--- NOTE | 2018-06-11 19:24 | PN ---
Progress Note, Physician History of Present Illness: Pt breathing is the same, cough is unchanged. Pt w/o CP, palp, dizziness, abd pain, nausea, vomiting, blood in stool, black stool. - Current Medication List Current Medications: Active Medications Allopurinol (Zyloprim -) 100 mg PO BID [facility] Last Admin: 06/11/18 11:54 Dose: 100 mg Apixaban (Eliquis -) 2.5 mg PO BID [facility] Last Admin: 06/11/18 11:54 Dose: 2.5 mg Diltiazem HCl (Cardizem Injection -) 10 mg IVPUSH Q4H PRN PRN Reason: TACHYCARDIA Furosemide (Lasix -) 20 mg PO DAILY [facility] Last Admin: 06/11/18 11:54 Dose: 20 mg Azithromycin (Zithromax 500mg Ivpb (Pre-Docked)) 500 mg in 250 mls @ 250 mls/ hr IVPB DAILY [facility] Last Admin: 06/11/18 11:54 Dose: 250 mls/hr Ceftriaxone Sodium 1 gm/ (Dextrose) 50 mls @ 100 mls/hr IVPB DAILY [facility] Last Admin: 06/11/18 11:55 Dose: 100 mls/hr Metoprolol Succinate (Toprol Xl -) 100 mg PO BID [facility] [id number]-[id number] Ethyl Esters (Lovaza -) 1 gm PO BID [facility] Last Admin: 06/11/18 11:59 Dose: 1 gm - Objective Vital Signs: Vital Signs Temperature 98.4 F 06/11/18 14:00 Pulse Rate 69 06/11/18 14:00 Respiratory Rate 20 06/11/18 12:07 Blood Pressure 147/69 06/11/18 14:00 O2 Sat by Pulse Oximetry (%) 95 06/11/18 09:00 Constitutional: Yes: No Distress, Calm Cardiovascular: Yes: Pulse Irregular, S1, S2 Respiratory: Yes: Regular, CTA Bilaterally Gastrointestinal: Yes: Normal Bowel Sounds, Soft. No: Tenderness Edema: No Labs: CBC, BMP 06/11/18 06:00 06/11/18 06:00 INR, PTT INR 1.12 (0.83-1.09) H 06/07/18 16:15 Problem List - Problems (1) Atrial fibrillation with rapid ventricular response Code(s): I48.91 - UNSPECIFIED ATRIAL FIBRILLATION (2) Acute on chronic systolic heart failure Code(s): I50.23 - ACUTE ON CHRONIC SYSTOLIC (CONGESTIVE) HEART FAILURE (3) PNA (pneumonia) Code(s): J18.9 - PNEUMONIA, UNSPECIFIED ORGANISM (4) Demand ischemia Code(s): I24.8 - OTHER FORMS OF ACUTE ISCHEMIC HEART DISEASE (5) CRF (chronic renal failure) Code(s): N18.9 - CHRONIC KIDNEY DISEASE, UNSPECIFIED (6) Hypertension Code(s): I10 - ESSENTIAL (PRIMARY) HYPERTENSION Qualifiers: Hypertension type: essential hypertension Qualified Code(s): I10 - Essential (primary) hypertension (7) Anemia Code(s): D64.9 - ANEMIA, UNSPECIFIED Qualifiers: Iron deficiency anemia type: unspecified iron deficiency Assessment/Plan Admitted to Telemetry. s/p PRBC transfusion. Cardio, GI consults are appreciated. IV abtx CXR AM labs Pt's conditions was d/w pt and pt's son; all questions were answered. Pt's conditionwas d/w pt's nurse.,
[2018-06-12 06:53] LABS: HEMATOCRIT 31.9 % (35.4-49); HEMOGLOBIN 10.4 GM/dL (11.7-16.9); MCH 25.3 pg (25.7-33.7); MCHC 32.6 g/dl (32.0-35.9); MEAN CELL VOLUME 77.5 fl (80-96); PLATELET COUNT 232 K/MM3 (134-434); RBC 4.11 M/mm3 (4.00-5.60); RDW 18.7 % (11.9-15.9); WHITE BLOOD COUNT 7.8 K/mm3 (4.0-10.0)
[2018-06-12 07:29] LABS: ANION GAP 9 MMOL/L (8-16); BLOOD UREA NITROGEN 60 mg/dL (7-18); CHLORIDE 109 mmol/L (98-107); CO2 25 mmol/L (21-32); CREATININE 2.7 mg/dL (0.55-1.3); GLUCOSE,RANDOM 92 mg/dL (74-106); POTASSIUM 3.4 mmol/L (3.5-5.1); SODIUM 143 mmol/L (136-145)
[2018-06-12] MEDS ORDERED: PT OWN MED DRAWER 7, Y5N ONE ×2 (09:31→20:19)
[2018-06-12] MEDS ORDERED: cefTRIAXone SODIUM 1 GM VIAL ONE (09:32)
[2018-06-12] MEDS ORDERED: DEXTROSE 5%-WATER - 50 ML IVPB ONE (09:32)
[2018-06-12] MEDS: ALLOPURINOL 100 MG TABLET (FP) PO SCH ×2 (09:47→21:08)
[2018-06-12] MEDS: APIXABAN 2.5 MG TABLET PO SCH ×2 (09:47→21:08)
[2018-06-12] MEDS: OMEGA-3 ACID ETHYL ESTERS (FATTY-ACIDS) 1 GM CAPSULE (FP) PO SCH ×2 (09:47→21:08)
[2018-06-12] MEDS: FUROSEMIDE 20 MG TABLET (FP) PO SCH (09:47)
[2018-06-12] MEDS: CEFTRIAXONE 1 GM in DEXTROSE 5%-WATER - 50 ML IVPB SCH (10:46)
[2018-06-12] MEDS: AZITHROMYCIN IVPB 500 MG/250 ML BAG IVPB SCH (12:06)
--- NOTE | 2018-06-12 14:32 | PN ---
Progress Note, Physician History of Present Illness: Pt breathing is better. Pt is less confused regarding his stay at hospital. Pt w/o CP, palp, dizziness, abd pain, nausea, vomiting, blood in stool, black stool. - Current Medication List Current Medications: Active Medications Allopurinol (Zyloprim -) 100 mg PO BID [facility] Last Admin: 06/12/18 09:47 Dose: 100 mg Apixaban (Eliquis -) 2.5 mg PO BID [facility] Last Admin: 06/12/18 09:47 Dose: 2.5 mg Diltiazem HCl (Cardizem Injection -) 10 mg IVPUSH Q4H PRN PRN Reason: TACHYCARDIA Furosemide (Lasix -) 20 mg PO DAILY [facility] Last Admin: 06/12/18 09:47 Dose: 20 mg Azithromycin (Zithromax 500mg Ivpb (Pre-Docked)) 500 mg in 250 mls @ 250 mls/ hr IVPB DAILY [facility] Last Admin: 06/12/18 12:06 Dose: 250 mls/hr Ceftriaxone Sodium 1 gm/ (Dextrose) 50 mls @ 100 mls/hr IVPB DAILY [facility] Last Admin: 06/12/18 10:46 Dose: 100 mls/hr Metoprolol Succinate (Toprol Xl -) 100 mg PO BID [facility] Last Admin: 06/12/18 09:47 Dose: 100 mg Rttsg-7-Quhh Ethyl Esters (Lovaza -) 1 gm PO BID [facility] Last Admin: 06/12/18 09:47 Dose: 1 gm - Objective Vital Signs: Vital Signs Temperature 97.9 F 06/12/18 08:50 Pulse Rate 83 06/12/18 08:50 Respiratory Rate 18 06/12/18 08:50 Blood Pressure 123/65 06/12/18 08:50 O2 Sat by Pulse Oximetry (%) 98 06/12/18 10:00 Constitutional: Yes: No Distress, Calm Cardiovascular: Yes: Pulse Irregular, S1, S2 Respiratory: Yes: Regular, Rhonchi (minimal, scattered). No: Wheezes Gastrointestinal: Yes: Normal Bowel Sounds, Soft. No: Tenderness Edema: No Neurological: Yes: Alert, Oriented Labs: CBC, BMP 06/12/18 06:15 06/12/18 06:15 INR, PTT INR 1.12 (0.83-1.09) H 02/11/19 16:15 Problem List - Problems (1) Atrial fibrillation with rapid ventricular response Code(s): I48.91 - UNSPECIFIED ATRIAL FIBRILLATION (2) Acute on chronic systolic heart failure Code(s): I50.23 - ACUTE ON CHRONIC SYSTOLIC (CONGESTIVE) HEART FAILURE (3) PNA (pneumonia) Code(s): J18.9 - PNEUMONIA, UNSPECIFIED ORGANISM (4) Demand ischemia Code(s): I24.8 - OTHER FORMS OF ACUTE ISCHEMIC HEART DISEASE (5) CRF (chronic renal failure) Code(s): N18.9 - CHRONIC KIDNEY DISEASE, UNSPECIFIED (6) Hypertension Code(s): I10 - ESSENTIAL (PRIMARY) HYPERTENSION Qualifiers: Hypertension type: essential hypertension Qualified Code(s): I10 - Essential (primary) hypertension (7) Anemia Code(s): D64.9 - ANEMIA, UNSPECIFIED Qualifiers: Iron deficiency anemia type: unspecified iron deficiency (8) Hypokalemia Code(s): E87.6 - HYPOKALEMIA Assessment/Plan Admitted to Telemetry. s/p PRBC transfusion and GI evaluation (needs outpt f/u) Cardio, GI consults are appreciated. K was repleted; to monitor, f/u Mg. IV abtx CXR showed resolving of infiltrate. AM labs Pt's condition was d/w pt's nurse.,
[2018-06-12] MEDS ORDERED: POTASSIUM CHLORIDE TABS 20 MEQ TABLET.ER (FP) PO ONE (14:49)
[2018-06-12 21:12] LABS: TRANSGLUTAMINASE IGA < 2 U/mL (0-3); TRANSGLUTAMINASE IGG < 2 U/mL (0-5)
--- NOTE | 2018-06-13 08:50 | PN ---
Progress Note, Physician Chief Complaint: in bed NAD no co was confused last night got OOB went in the hallway d/w pt and staff do not get OOB alone, call for help; bed alarm on; falls PFX he understood - Current Medication List Current Medications: Active Medications Allopurinol (Zyloprim -) 100 mg PO BID [facility] Last Admin: 06/12/18 21:08 Dose: 100 mg Apixaban (Eliquis -) 2.5 mg PO BID [facility] Last Admin: 06/12/18 21:08 Dose: 2.5 mg Diltiazem HCl (Cardizem Injection -) 10 mg IVPUSH Q4H PRN PRN Reason: TACHYCARDIA Furosemide (Lasix -) 20 mg PO DAILY [facility] Last Admin: 06/12/18 09:47 Dose: 20 mg Azithromycin (Zithromax 500mg Ivpb (Pre-Docked)) 500 mg in 250 mls @ 250 mls/ hr IVPB DAILY [facility] Last Admin: 06/12/18 12:06 Dose: 250 mls/hr Ceftriaxone Sodium 1 gm/ (Dextrose) 50 mls @ 100 mls/hr IVPB DAILY [facility] Last Admin: 06/12/18 10:46 Dose: 100 mls/hr Metoprolol Succinate (Toprol Xl -) 100 mg PO BID [facility] Last Admin: 06/12/18 21:08 Dose: 100 mg Nxqum-4-Gtrg Ethyl Esters (Lovaza -) 1 gm PO BID [facility] Last Admin: 06/12/18 21:08 Dose: 1 gm - Objective Vital Signs: Vital Signs Temperature 97.3 F L 06/13/18 05:56 Pulse Rate 73 06/13/18 05:56 Respiratory Rate 20 06/13/18 05:56 Blood Pressure 106/70 06/13/18 05:56 O2 Sat by Pulse Oximetry (%) 100 06/12/18 20:05 Constitutional: Yes: No Distress, Calm Eyes: Yes: Conjunctiva Clear HENT: Yes: Atraumatic Neck: Yes: Supple Cardiovascular: Yes: Regular Rate and Rhythm Respiratory: Yes: CTA Bilaterally Gastrointestinal: Yes: Soft. No: Tenderness Genitourinary: No: CVA Tenderness - Left, CVA Tenderness - Right Musculoskeletal: No: Joint Stiffness, Joint Swelling Edema: No Integumentary: No: Rash, Venous Stasis Changes Neurological: Yes: WNL, Alert, Oriented ...Motor Strength: WNL Psychiatric: Yes: WNL, Alert, Oriented. No: Agitated, Suicidal Ideation Labs: CBC, BMP 06/12/18 06:15 INR, PTT INR 1.12 (0.83-1.09) H 06/07/18 16:15 - ....Imaging Other: Report Reviewed Assessment/Plan The patient is an 82 year old male with a PMH of COPD (not on home O2),Afib (on Elqiuis) HTN, CKD, OA, Gout, diverticulosis admitted with worsening shortness of breath and non-productive cough. Diagnosed with URI, anemia, CHF and arrhythmia Rapid AFib IV antibiotics cardiology and GI f/u anemia w/u falls PFX bed alarm do not get OOB alone d/w pt and staff
[2018-06-13 09:15] LABS: ANION GAP 9 MMOL/L (8-16); BLOOD UREA NITROGEN 60 mg/dL (7-18); CALCIUM 8.2 mg/dL (8.5-10.1); CHLORIDE 108 mmol/L (98-107); CO2 25 mmol/L (21-32); CREATININE 2.8 mg/dL (0.55-1.3); GLUCOSE,RANDOM 93 mg/dL (74-106); MAGNESIUM 2.3 mg/dL (1.8-2.4); SODIUM 142 mmol/L (136-145)
[2018-06-13] MEDS ORDERED: DEXTROSE 5%-WATER - 50 ML IVPB ONE (09:28)
[2018-06-13] MEDS ORDERED: cefTRIAXone SODIUM 1 GM VIAL ONE (09:28)
[2018-06-13] MEDS: AZITHROMYCIN IVPB 500 MG/250 ML BAG IVPB SCH (09:33)
[2018-06-13] MEDS: APIXABAN 2.5 MG TABLET PO SCH ×2 (09:34→21:16)
[2018-06-13] MEDS: OMEGA-3 ACID ETHYL ESTERS (FATTY-ACIDS) 1 GM CAPSULE (FP) PO SCH ×2 (09:34→21:16)
[2018-06-13] MEDS: FUROSEMIDE 20 MG TABLET (FP) PO SCH (09:34)
[2018-06-13] MEDS: ALLOPURINOL 100 MG TABLET (FP) PO SCH ×2 (09:34→21:16)
--- NOTE | 2018-06-13 11:06 | PN ---
Progress Note, Physician History of Present Illness: Cough, dyspnea, orthopnea resolving with diuresis, 17 lbs weight loss since admission. Underwent transfusion 1 U pRBC now with stable Hgb post transfusion. Afib with improved rate-control with Toprol XL uptitration. - Current Medication List Current Medications: Active Medications Allopurinol (Zyloprim -) 100 mg PO BID [facility] Last Admin: 06/13/18 09:34 Dose: 100 mg Apixaban (Eliquis -) 2.5 mg PO BID [facility] Last Admin: 06/13/18 09:34 Dose: 2.5 mg Diltiazem HCl (Cardizem Injection -) 10 mg IVPUSH Q4H PRN PRN Reason: TACHYCARDIA Furosemide (Lasix -) 20 mg PO DAILY [facility] Last Admin: 06/13/18 09:34 Dose: 20 mg Azithromycin (Zithromax 500mg Ivpb (Pre-Docked)) 500 mg in 250 mls @ 250 mls/ hr IVPB DAILY [facility] Last Admin: 06/13/18 09:33 Dose: 250 mls/hr Ceftriaxone Sodium 1 gm/ (Dextrose) 50 mls @ 100 mls/hr IVPB DAILY [facility] Last Admin: 06/12/18 10:46 Dose: 100 mls/hr Metoprolol Succinate (Toprol Xl -) 100 mg PO BID [facility] Last Admin: 06/13/18 09:34 Dose: 100 mg Mpqpa-1-Vafm Ethyl Esters (Lovaza -) 1 gm PO BID [facility] Last Admin: 06/13/18 09:34 Dose: 1 gm - Objective Vital Signs: Vital Signs Temperature 98.0 F 06/13/18 09:44 Pulse Rate 72 06/13/18 09:44 Respiratory Rate 16 06/13/18 09:44 Blood Pressure 113/62 06/13/18 09:44 O2 Sat by Pulse Oximetry (%) 100 06/12/18 20:05 Constitutional: Yes: No Distress, Calm, Thin Neck: Yes: Supple Cardiovascular: Yes: Pulse Irregular, Murmur (2/6 SM) Respiratory: Yes: Regular, Diminished, On Nasal O2 Gastrointestinal: Yes: Normal Bowel Sounds, Soft Edema: No Labs: CBC, BMP 06/12/18 06:15 06/13/18 07:20 INR, PTT INR 1.12 (0.83-1.09) H 06/07/18 16:15 - ....Imaging Chest X-ray: Report Reviewed (NAD) EKG: Report Reviewed (Tele: Rate-controlled afib) Problem List - Problems (1) Acute on chronic systolic heart failure Code(s): I50.23 - ACUTE ON CHRONIC SYSTOLIC (CONGESTIVE) HEART FAILURE (2) Atrial fibrillation with rapid ventricular response Code(s): I48.91 - UNSPECIFIED ATRIAL FIBRILLATION (3) Hypertensive heart disease Code(s): I11.9 - HYPERTENSIVE HEART DISEASE WITHOUT HEART FAILURE Qualifiers: Heart failure presence: with heart failure Heart failure type: combined systolic and diastolic Heart failure chronicity: acute on chronic Qualified Code(s): I11.0 - Hypertensive heart disease with heart failure; I50.43 - Acute on chronic combined systolic (congestive) and diastolic (congestive) heart failure (4) Chronic anticoagulation Code(s): Z79.01 - [employer] (CURRENT) USE OF ANTICOAGULANTS (5) Acute on chronic renal failure Code(s): N17.9 - ACUTE KIDNEY FAILURE, UNSPECIFIED; N18.9 - CHRONIC KIDNEY DISEASE, UNSPECIFIED Qualifiers: Chronic kidney disease stage: stage 3 (moderate) (6) Diverticulosis Code(s): K57.90 - DVRTCLOS OF INTEST, PART UNSP, W/O PERF OR ABSCESS W/O BLEED Qualifiers: Diverticulosis site: unspecified location Diverticulosis bleeding: diverticulosis without bleeding Qualified Code(s): K57.90 - Diverticulosis of intestine, part unspecified, without perforation or abscess without bleeding (7) Subendocardial ischemia Code(s): I24.8 - OTHER FORMS OF ACUTE ISCHEMIC HEART DISEASE Assessment/Plan Echo: 06/08/2018 Moderate decreased LVEF 35-40%, mid-distal anteroseptal, inferolateral, apical HK, normal RV size and fxn, mod LAE, mild-mod MR, mild TR , mild pulm HTN, mild JR 1.1 cm^2, MG=11 mmHG, Tr ID Echo 11/19/2017 Normal LV size, mild LVH, moderate decreased LVEF 35-40% with HK of apex, apical septum, apical inferior, apical lateral, mid anteroseptum, mid anterolateral basal anterolateral, basal anteroseptum and basal inferolateral segments, severe LAE, mild DOE, normal RV size and fxn, mild MR, TR, ID, RVSO 32 mmHg 1. Dyspnea, orthopnea, cough referable to acute on chronic systolic heart failure and subendocardial ischemia resolving 2. Persistent atrial fibrillation with RVR on Eliquis - [id number] score of 3-4 3. Mild aortic stenosis 4. Hypertension/HCVD 5. Hyperlipidemia 6. COPD 7. Acute on CKD 8. 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 History of diverticular bleed PLAN: 1. Continue oral diuresis with monitoring diuretic response, renal function and electrolytes 2. Continue Eliquis 2.5 mg BID with GI protection,Metoprolol ER 100 mg BID, Lovaza 1 bid and hold Losartan pending renal function stabilization 3. Monitor hemoglobin closely and transfuse as needed maintaining hemoglobin 8.0 and above 4. Panendoscopy as outpatient
[2018-06-13] MEDS: CEFTRIAXONE 1 GM in DEXTROSE 5%-WATER - 50 ML IVPB SCH (11:24)
[2018-06-13] MEDS ORDERED: PT OWN MED DRAWER 7, Y5N ONE (19:48)
[2018-06-14 07:07] LABS: BASO % 0.5 % (0-2.0); HEMATOCRIT 31.9 % (35.4-49); HEMOGLOBIN 10.5 GM/dL (11.7-16.9); LYMPH % 19.9 % (8-40); MCH 26.3 pg (25.7-33.7); MCHC 32.8 g/dl (32.0-35.9); MEAN CELL VOLUME 80.2 fl (80-96); MEAN PLT VOLUME 9.2 fl (7.5-11.1); MONO % 9.9 % (3.8-10.2); NEUT % 66.7 % (42.8-82.8); PLATELET COUNT 255 K/MM3 (134-434); RBC 3.98 M/mm3 (4.00-5.60); RDW 18.2 % (11.9-15.9); WHITE BLOOD COUNT 8.4 K/mm3 (4.0-10.0)
[2018-06-14 08:35] LABS: ALBUMIN 2.9 g/dl (3.4-5.0); ALK PHOS 105 U/L (45-117); ANION GAP 7 MMOL/L (8-16); BILIRUBIN,TOTAL 0.5 mg/dL (0.2-1); BLOOD UREA NITROGEN 62 mg/dL (7-18); CALCIUM 8.2 mg/dL (8.5-10.1); CHLORIDE 109 mmol/L (98-107); CO2 27 mmol/L (21-32); CREATININE 2.9 mg/dL (0.55-1.3); GLUCOSE,RANDOM 91 mg/dL (74-106); POTASSIUM 4.8 mmol/L (3.5-5.1); SGOT/AST 15 U/L (15-37); SGPT/ALT 19 U/L (13-61); SODIUM 143 mmol/L (136-145); TOT PROT 5.4 g/dl (6.4-8.2)
[2018-06-14] MEDS ORDERED: cefTRIAXone SODIUM 1 GM VIAL ONE (09:02)
[2018-06-14] MEDS ORDERED: DEXTROSE 5%-WATER - 50 ML IVPB ONE (09:03)
[2018-06-14] MEDS: ALLOPURINOL 100 MG TABLET (FP) PO SCH ×2 (09:05→21:53)
[2018-06-14] MEDS: APIXABAN 2.5 MG TABLET PO SCH ×2 (09:05→21:27)
[2018-06-14] MEDS: FUROSEMIDE 20 MG TABLET (FP) PO SCH (09:05)
[2018-06-14] MEDS: AZITHROMYCIN IVPB 500 MG/250 ML BAG IVPB SCH (09:06)
[2018-06-14] MEDS: CEFTRIAXONE 1 GM in DEXTROSE 5%-WATER - 50 ML IVPB SCH (09:06)
[2018-06-14 09:51] LABS: ANISOCYTOSIS 2+; MACROCYTOSIS 0; PLATELET ESTIMATE NORMAL
--- NOTE | 2018-06-14 10:13 | CONSULT ---
Consult Consult Specialty:: Nephrology Referred by:: Dr. Gates Reason for Consultation:: renal failure - History of Present Illness Chief Complaint: Patient is an 82 year old male, well known to us, with underlying CKD3-4, and history of hypertension/HCVD, GERD, CAD, Systolic dysfunction, pancreatic cyst, history of diverticulosis and persistent atrial fibrillation on Eliquis. He presented with week history of progressive cough, dyspnea, orthopnea, without chest pain, palpitations, PND or LE edema. The patient was noted to have an Acute Respiratory infection, Pneumonia. being treated with IV Azithromycin and Ceftriaxone. His last Serum creatinine as outpatient was 2.08mg. - History Source History Provided By: Patient - Past Medical History Cardio/Vascular: Yes: AFIB, CHF, HTN Pulmonary: Yes: COPD Gastrointestinal: Yes: Diverticulosis, GI Bleed (diverticular bleed 10/11), Other (IPMN PANCREAS, multiple colon polyps removed) Renal/: Yes: Renal Inusuff Musculoskeletal: Yes: Osteoarthritis Rheumatology: Yes: Gout - Past Surgical History Past Surgical History: Yes: Appendectomy, Cholecystectomy, Tonsillectomy - Alcohol/Substance Use Hx Alcohol Use: Yes (rare beer on holidays) - Smoking History Smoking history: Former smoker Have you smoked in the past 12 months: No Aproximately how many cigarettes per day: 20 If you are a former smoker, when did you quit?: 20 YRS AGO - Social History Usual Living Arrangement: Alone () ADL: Independent Occupation: retired [employer] [facility] [place] History of Recent Travel: No Home Medications - Allergies Allergies/Adverse Reactions: Allergies Allergy/AdvReac Type Severity Reaction Status Date / Time No Known Allergies Allergy Verified 06/07/18 18:03 - Home Medications Home Medications: Ambulatory Orders Allopurinol [Zyloprim -] 100 mg PO BID 12/28/12 Chlorthalidone [Hygroton -] 25 mg PO BID 12/28/12 Metoprolol Succinate [Toprol XL -] 25 mg PO BID 12/28/12 Medina-3 Acid Ethyl Esters [Lovaza -] 1 tab PO BID 12/28/12 Amlodipine/Atorvastatin [Caduet 10 mg-10 mg Tablet] 20 mg PO DAILY 08/09/17 Dronedarone HCl [Multaq] 400 mg PO DAILY 08/09/17 Family Disease History - Family Disease History Family Disease History: CA: Mother (PANCREAS), Other: Father ( in his 90s) Review of Systems - Review of Systems Constitutional: reports: Loss of Appetite, Weakness Eyes: reports: No Symptoms Neck: reports: No Symptoms Cardiovascular: reports: Edema, Palpitations, Shortness of Breath Respiratory: reports: Cough, Orthopnea, SOB, SOB on Exertion Gastrointestinal: denies: Abdominal Pain Genitourinary: reports: Frequency. denies: Burning, Dysuria, Flank Pain Musculoskeletal: reports: Back Pain Neurological: reports: Weakness Endocrine: reports: No Symptoms Physical Exam Vital Signs: Vital Signs Temperature 97.3 F L 06/14/18 08:52 Pulse Rate 77 06/14/18 08:52 Respiratory Rate 20 06/14/18 08:52 Blood Pressure 110/70 06/14/18 08:52 O2 Sat by Pulse Oximetry (%) 99 06/13/18 21:00 Constitutional: Yes: Anxious Eyes: Yes: Conjunctiva Clear HENT: Yes: Normocephalic Neck: Yes: Trachea Midline Cardiovascular: Yes: Tachycardia, Pulse Irregular, S1, S2 Respiratory: Yes: Diminished, Rhonchi, SOB Gastrointestinal: Yes: Normal Bowel Sounds, Soft Renal/: No: Bladder Distention, CVA Tenderness - Left, CVA Tenderness - Right Musculoskeletal: Yes: Back Pain Edema: No Neurological: Yes: Alert, Oriented Labs: CBC, BMP 06/14/18 06:00 06/14/18 06:00 Problem List - Problems (1) NAYANA (acute kidney injury) Code(s): N17.9 - ACUTE KIDNEY FAILURE, UNSPECIFIED (2) Acute on chronic systolic heart failure Code(s): I50.23 - ACUTE ON CHRONIC SYSTOLIC (CONGESTIVE) HEART FAILURE (3) Anemia Code(s): D64.9 - ANEMIA, UNSPECIFIED Qualifiers: Iron deficiency anemia type: unspecified iron deficiency (4) Atrial fibrillation with rapid ventricular response Code(s): I48.91 - UNSPECIFIED ATRIAL FIBRILLATION (5) CRF (chronic renal failure) Code(s): N18.9 - CHRONIC KIDNEY DISEASE, UNSPECIFIED (6) PNA (pneumonia) Code(s): J18.9 - PNEUMONIA, UNSPECIFIED ORGANISM (7) Acute on chronic renal failure Code(s): N17.9 - ACUTE KIDNEY FAILURE, UNSPECIFIED; N18.9 - CHRONIC KIDNEY DISEASE, UNSPECIFIED Qualifiers: Chronic kidney disease stage: stage 3 (moderate) (8) Hypertension Code(s): I10 - ESSENTIAL (PRIMARY) HYPERTENSION Qualifiers: Hypertension type: essential hypertension Qualified Code(s): I10 - Essential (primary) hypertension Assessment/Plan Patient is an 82 year old male, well known to us, with underlying CKD3-4, and history of hypertension/HCVD, GERD, CAD, Systolic dysfunction, pancreatic cyst, history of diverticulosis and persistent atrial fibrillation on Eliquis. He presented with week history of progressive cough, dyspnea, orthopnea, without chest pain, palpitations, PND or LE edema. The patient was noted to have an Acute Respiratory infection, Pneumonia. being treated with IV Azithromycin and Ceftriaxone. His last Serum creatinine as outpatient was 2.08mg. 1. Acute on Chronic Kidney failure in this 82 y/o male with underluting Microvascular Renal disease. 2. The Acute renal failure is most likely due to Acute hemodynamic factors related to the current cardio-pulmonary events, resulting in renal hypoperfusion , and worsening of azotemia. 3. Anemia...of chronic disease. but cannot r/o blood loss anemia. Noted GI evaluation in progress. No emergency interventions required at this point from renal perspective. Electrolytes in acceptable range. Renal functions expected to eventually settle at his baseline. Will continue the current antibiotics. Thanks again. Mary Finley MD
[2018-06-14] MEDS: OMEGA-3 ACID ETHYL ESTERS (FATTY-ACIDS) 1 GM CAPSULE (FP) PO SCH ×2 (11:00→21:27)
--- NOTE | 2018-06-14 11:37 | CONSULT ---
Consultation: REQUESTING PROVIDER: Dr. Gates CONSULT REQUEST: We have been asked to medically evaluate this patient for anemia. HISTORY OF PRESENT ILLNESS: This is a 82 year old male with a history of atrial fibrillation on eliquis, COPD, CKD, HTN, systolic CHF, hx of diverticular bleed, colon polyps, who presented with confusion, (patient stated he thought he was on a cruise ship gambling with sons), found to be in rapid atrial fibrillation, acute kidney failure and acute systolic CHF with microcytic anemia. Currently rate controlled and adequately diuresed. Initial hemoglobin 8.4; decreased to 7.5, with reticulocytosis. He was given 1UPRBC and venofer for iron deficiency. 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 FOBT negative. Abdominal US revealing hypoechoic densities in the region of the pancreatic boy/tail with a common bile duct 1.3 cm. Seen by gastroenterology, plan for lopez endoscopy. Initial concern for PNA, although afeCT chest/abd pelvis pending. PMH: AF, HTN, COPD, CHF, osteoarthritis, gout, diverticulosis, colon polyps, prostate CA, skin CA, colon polyps, diverticular GI bleed PSH: appendectomy. choleycystetomy, tonsillectomy Social: rare alcohol, previous smoking hx, denies drug use, lives at home alone ; states three months ago, has sons as support system REVIEW OF SYSTEMS: CONSTITUTIONAL: Absent: fever, chills, diaphoresis, generalized weakness, malaise, loss of appetite, weight change HEENT: Absent: rhinorrhea, nasal congestion, throat pain, throat swelling, difficulty swallowing, mouth swelling, ear pain, eye pain, visual changes CARDIOVASCULAR: Absent: chest pain, syncope, palpitations, irregular heart rate, lightheadedness , peripheral edema RESPIRATORY: Absent: cough, shortness of breath, dyspnea with exertion, orthopnea, wheezing, stridor, hemoptysis GASTROINTESTINAL: Absent: abdominal pain, abdominal distension, nausea, vomiting, diarrhea, constipation, melena, hematochezia GENITOURINARY: Absent: dysuria, frequency, urgency, hesitancy, hematuria, flank pain, genital pain MUSCULOSKELETAL: Absent: myalgia, arthralgia, joint swelling, back pain, neck pain SKIN: Absent: rash, itching, pallor HEMATOLOGIC/IMMUNOLOGIC: Absent: easy bleeding, easy bruising, lymphadenopathy, frequent infections ENDOCRINE: Absent: unexplained weight gain, unexplained weight loss, heat intolerance, cold intolerance NEUROLOGIC: Absent: headache, focal weakness or paresthesias, dizziness, unsteady gait, seizure, mental status changes, bladder or bowel incontinence PSYCHIATRIC: Absent: anxiety, depression, suicidal or homicidal ideation, hallucinations. PHYSICAL EXAMINATION Vital Signs - 24 hr 06/13/18 06/13/18 06/13/18 14:05 16:45 21:00 Temperature 97.3 F L 97.3 F L Pulse Rate 78 79 Respiratory 16 18 18 Rate Blood Pressure 105/53 L 109/72 O2 Sat by Pulse 99 Oximetry (%) 06/13/18 06/14/18 06/14/18 21:58 02:08 06:00 Temperature 97.2 F L 97.2 F L 97.0 F L Pulse Rate 84 76 70 Respiratory 18 18 20 Rate Blood Pressure 120/70 115/75 109/60 O2 Sat by Pulse Oximetry (%) 06/14/18 08:52 Temperature 97.3 F L Pulse Rate 77 Respiratory 20 Rate Blood Pressure 110/70 O2 Sat by Pulse Oximetry (%) GENERAL: Awake, alert, and fully oriented, in no acute distress. HEAD: Normal with no signs of trauma. NECK: Normal range of motion, supple without lymphadenopathy, JVD, or masses. LUNGS: very mild basilar crackles; mild wheeze with expiration HEART: Regular rate and irregular rhythm, normal S1 and S2 without murmur, rub or gallop. BREAST/axilla; negative for mass/lumps or nipple discharge ABDOMEN: Soft, nontender, not distended, normoactive bowel sounds, no guarding, no rebound, no masses. No hepatomegaly or splenomegaly. MUSCULOSKELETAL: Normal range of motion at all joints. No bony deformities or tenderness. No CVA tenderness. UPPER EXTREMITIES: 2+ pulses, warm, well-perfused. No cyanosis. No clubbing. Cap refill <2 seconds. No peripheral edema. LOWER EXTREMITIES: 2+ pulses, warm, well-perfused. No calf tenderness. No peripheral edema. NEUROLOGICAL: Cranial nerves II-XII intact. Normal speech. PSYCHIATRIC: Cooperative. Good eye contact. Appropriate mood and affect. SKIN: Warm, dry, normal turgor, no rashes or lesions noted. Laboratory Results - last 24 hr 06/14/18 06/14/18 06:00 06:00 WBC 8.4 RBC 3.98 L Hgb 10.5 L Hct 31.9 L MCV 80.2 MCH 26.3 MCHC 32.8 RDW 18.2 H Plt Count 255 MPV 9.2 Absolute Neuts (auto) 5.6 Neutrophils % 66.7 Neutrophils % (Manual) 71.7 Band Neutrophils % 0.0 Lymphocytes % 19.9 Lymphocytes % (Manual) 15.2 D Monocytes % 9.9 Monocytes % (Manual) 7 D Eosinophils % 3.0 D Eosinophils % (Manual) 2.0 D Basophils % 0.5 Basophils % (Manual) 1.0 D Myelocytes % (Man) 3 H D Promyelocytes % (Man) 0 Blast Cells % (Manual) 0 Nucleated RBC % 4 H Metamyelocytes 0 Hypochromia 0 Platelet Estimate Normal Polychromasia 1+ Poikilocytosis 1+ Anisocytosis 2+ Microcytosis 1+ Macrocytosis 0 Fragmented RBCs 1+ Sodium 143 Potassium 4.8 Chloride 109 H Carbon Dioxide 27 Anion Gap 7 L BUN 62 H Creatinine 2.9 H Creat Clearance w eGFR 20.89 Random Glucose 91 Calcium 8.2 L Total Bilirubin 0.5 AST 15 ALT 19 Alkaline Phosphatase 105 Total Protein 5.4 L Albumin 2.9 L Active Medications Generic Name Dose Route Start Last Admin Trade Name Freq PRN Reason Stop Dose Admin Allopurinol 100 mg 06/08/18 10:00 06/14/18 09:05 Zyloprim - PO 100 mg BID PRISCILLA Administration Apixaban 2.5 mg 06/07/18 22:00 06/14/18 09:05 Eliquis - PO 2.5 mg BID PRISCILLA Administration Diltiazem HCl 10 mg 06/07/18 19:07 Cardizem Injection - IVPUSH Q4H PRN TACHYCARDIA Furosemide 20 mg 06/11/18 10:00 06/14/18 09:05 Lasix - PO 20 mg DAILY PRISCILLA Administration Azithromycin 500 mg in 250 mls @ 250 mls/hr 06/08/18 10:00 06/14/18 09:06 Zithromax 500mg Ivpb (Pre-Docked) IVPB 250 mls/hr DAILY PRISCILLA Administration Ceftriaxone Sodium 1 gm/ 50 mls @ 100 mls/hr 06/08/18 10:00 06/14/18 09:06 Dextrose IVPB 100 mls/hr DAILY PRISCILLA Administration Metoprolol Succinate 100 mg 06/11/18 10:52 06/14/18 09:05 Toprol Xl - PO 100 mg BID PRISCILLA Administration Lzivo-9-Wobw Ethyl Esters 1 gm 06/08/18 10:00 06/13/18 21:16 Lovaza - PO 1 gm BID PRISCILLA Administration ASSESSMENT/PLAN: This is a 82 year old male with afib, copd, chf, ckd, anemia, who presented with confusion, found to be in rapid atrial fibrillation, acute kidney failure, acute CHF, we were called to evaluate patient for anemia. Patient presented with hemoglobin of 8.4 that decreased to 7.5; s/p 1UPRB and venofer. Microcytic anemia possible from chronic GI bleed; iron def anemia. He was also found to have cyst on pancreas. Iron def. anemia Pancreatic cysts Toponemia; likely demand ischemia Acute kidney failure Acute on chronic chf Atrial fib RVR dementia vs delirium? hx COPD -no acute bleeding; FOBT negative -hemoglobin stable after 1UPRBC; monitor cbc; -s/p venofer ; cont iron supp -hemoglobin electrophoresis for anemia; -spep /upep ; immunoglobulins ans immunofixation pending ; MDS w/u for AG ratio >1 -need to eval pancreatic cyst and dilated CBD; cannot due MRI due to NAYANA; -pending CT chest/abd/pelvis -lopez endoscopy as per GI; -cont AC for now; will need to hold eliqus for 3 days prior to endoscopy due to renal disease Dispo: We will continue to follow the patient. Thank you for this consultative opportunity. Visit type - Emergency Visit Emergency Visit: Yes ED Registration Date: 06/07/18 Care time: The patient presented to the Emergency Department on the above date and was hospitalized for further evaluation of their emergent condition. - New Patient This patient is new to me today: Yes Date on this admission: 06/14/18 - Critical Care Critical Care patient: No
--- NOTE | 2018-06-14 11:43 | PN ---
Progress Note, Physician Chief Complaint: felt better yesterday, today feels congested and coughing again will check cxr - Current Medication List Current Medications: Active Medications Allopurinol (Zyloprim -) 100 mg PO BID [facility] Last Admin: 06/14/18 09:05 Dose: 100 mg Apixaban (Eliquis -) 2.5 mg PO BID [facility] Last Admin: 06/14/18 09:05 Dose: 2.5 mg Diltiazem HCl (Cardizem Injection -) 10 mg IVPUSH Q4H PRN PRN Reason: TACHYCARDIA Furosemide (Lasix -) 20 mg PO DAILY [facility] Last Admin: 06/14/18 09:05 Dose: 20 mg Azithromycin (Zithromax 500mg Ivpb (Pre-Docked)) 500 mg in 250 mls @ 250 mls/ hr IVPB DAILY [facility] Last Admin: 06/14/18 09:06 Dose: 250 mls/hr Ceftriaxone Sodium 1 gm/ (Dextrose) 50 mls @ 100 mls/hr IVPB DAILY [facility] Last Admin: 06/14/18 09:06 Dose: 100 mls/hr Metoprolol Succinate (Toprol Xl -) 100 mg PO BID [facility] Last Admin: 06/14/18 09:05 Dose: 100 mg Hhosd-3-Wgmc Ethyl Esters (Lovaza -) 1 gm PO BID [facility] Last Admin: 06/13/18 21:16 Dose: 1 gm - Objective Vital Signs: Vital Signs Temperature 97.3 F L 06/14/18 08:52 Pulse Rate 77 06/14/18 08:52 Respiratory Rate 20 06/14/18 08:52 Blood Pressure 110/70 06/14/18 08:52 O2 Sat by Pulse Oximetry (%) 99 06/13/18 21:00 Constitutional: Yes: No Distress, Calm Eyes: Yes: Conjunctiva Clear HENT: Yes: Atraumatic Neck: Yes: Supple Cardiovascular: Yes: Regular Rate and Rhythm Respiratory: Yes: CTA Bilaterally Gastrointestinal: Yes: Soft. No: Tenderness Genitourinary: No: CVA Tenderness - Left, CVA Tenderness - Right Musculoskeletal: No: Joint Stiffness, Joint Swelling Extremities: No: Cold, Cool, Cyanosis Edema: No Integumentary: No: Rash, Venous Stasis Changes Neurological: Yes: WNL, Alert, Oriented ...Motor Strength: WNL Psychiatric: Yes: WNL, Alert, Oriented. No: Agitated, Suicidal Ideation Labs: CBC, BMP 06/14/18 06:00 06/14/18 06:00 INR, PTT INR 1.12 (0.83-1.09) H 06/07/18 16:15 - ....Imaging Other: Report Reviewed Assessment/Plan The patient is an 82 year old male with a PMH of COPD (not on home O2),Afib (on Elqiuis) HTN, CKD, OA, Gout, diverticulosis admitted with worsening shortness of breath and non-productive cough. Diagnosed with URI, anemia, CHF and arrhythmia Rapid AFib IV antibiotics cardiology and GI f/u anemia w/u heme and renal eval f/u labs falls PFX bed alarm do not get OOB alone d/w pt and staff
--- NOTE | 2018-06-14 17:41 | PN ---
Teaching Attending Note Name of Resident: Deborah Chan ATTENDING PHYSICIAN STATEMENT I saw and evaluated the patient. I reviewed the resident's note and discussed the case with the resident. I agree with the resident's findings and plan as documented. SUBJECTIVE: Patient seen and examined Presented with anemia and mental confusion Had rapid atrial fib NAYANA/CKD and has received one unit of packed cells in addition to venofer. Recent Hb has been relatively stable Last Vital Signs Temp Pulse Resp BP Pulse Ox 97.2 F L 73 20 112/63 99 06/14/18 14:34 06/14/18 14:34 06/14/18 14:35 06/14/18 14:34 06/14/18 14:35 HEENT: SHERLYN, EOM Intact Oropharynx: No thrush, No mucositis Neck: Supple Nodes: Without adenopathy Breasts: Without masses Cor:irregular Lungs: Clear to P&A Abd: Soft, Normal bowel sounds, No organomegaly Ext:No significant edema Skin: No rashes, Integument intact OBJECTIVE: ASSESSMENT AND PLAN: Impression Anemia likely multifactorial Fe++ sat of 5% suggests component of blood loss. Acute and CKD Infection with ineffective erythropoiesis. Screening tests ordered .
[2018-06-14] MEDS ORDERED: PT OWN MED DRAWER 7, Y5N ONE (21:11)
[2018-06-15 06:48] LABS: BASO % 1.4 % (0-2.0); EOS % 5.1 % (0-4.5); HEMATOCRIT 31.7 % (35.4-49); HEMOGLOBIN 10.2 GM/dL (11.7-16.9); LYMPH % 18.4 % (8-40); MCHC 32.4 g/dl (32.0-35.9); MEAN CELL VOLUME 80.3 fl (80-96); MEAN PLT VOLUME 8.8 fl (7.5-11.1); MONO % 8.1 % (3.8-10.2); PLATELET COUNT 255 K/MM3 (134-434); RBC 3.95 M/mm3 (4.00-5.60); RDW 18.9 % (11.9-15.9); WHITE BLOOD COUNT 7.6 K/mm3 (4.0-10.0)
[2018-06-15 07:30] LABS: ALK PHOS 109 U/L (45-117); ANION GAP 7 MMOL/L (8-16); BILIRUBIN,TOTAL 0.6 mg/dL (0.2-1); BLOOD UREA NITROGEN 55 mg/dL (7-18); CALCIUM 7.9 mg/dL (8.5-10.1); CHLORIDE 109 mmol/L (98-107); CO2 26 mmol/L (21-32); CREATININE 2.6 mg/dL (0.55-1.3); GLUCOSE,RANDOM 90 mg/dL (74-106); LDH 258 U/L (87-246); POTASSIUM 3.8 mmol/L (3.5-5.1); SGOT/AST 15 U/L (15-37); SGPT/ALT 18 U/L (13-61); SODIUM 143 mmol/L (136-145); TOT PROT 5.5 g/dl (6.4-8.2)
--- NOTE | 2018-06-15 08:11 | PN ---
Progress Note, Physician Chief Complaint: less cough CT scan noted d/w pt IV ATB; to get OOB with PT - Current Medication List Current Medications: Active Medications Allopurinol (Zyloprim -) 100 mg PO BID [facility] Last Admin: 06/14/18 21:53 Dose: 100 mg Apixaban (Eliquis -) 2.5 mg PO BID [facility] Last Admin: 06/14/18 21:27 Dose: 2.5 mg Diltiazem HCl (Cardizem Injection -) 10 mg IVPUSH Q4H PRN PRN Reason: TACHYCARDIA Furosemide (Lasix -) 20 mg PO DAILY [facility] Last Admin: 06/14/18 09:05 Dose: 20 mg Azithromycin (Zithromax 500mg Ivpb (Pre-Docked)) 500 mg in 250 mls @ 250 mls/ hr IVPB DAILY [facility] Last Admin: 06/14/18 09:06 Dose: 250 mls/hr Ceftriaxone Sodium 1 gm/ (Dextrose) 50 mls @ 100 mls/hr IVPB DAILY [facility] Last Admin: 06/14/18 09:06 Dose: 100 mls/hr Metoprolol Succinate (Toprol Xl -) 100 mg PO BID [facility] Last Admin: 06/14/18 21:27 Dose: 100 mg Rpfyw-7-Fxum Ethyl Esters (Lovaza -) 1 gm PO BID [facility] Last Admin: 06/14/18 21:27 Dose: 1 gm - Objective Vital Signs: Vital Signs Temperature 98.4 F 06/15/18 06:00 Pulse Rate 72 06/15/18 06:00 Respiratory Rate 18 06/15/18 06:00 Blood Pressure 110/64 06/15/18 06:00 O2 Sat by Pulse Oximetry (%) 97 06/14/18 20:47 Constitutional: Yes: No Distress, Calm Eyes: Yes: Conjunctiva Clear HENT: Yes: Atraumatic Neck: Yes: Supple Cardiovascular: Yes: Regular Rate and Rhythm Respiratory: Yes: Diminished Gastrointestinal: Yes: Soft. No: Tenderness Genitourinary: No: Hematuria Musculoskeletal: No: Joint Stiffness, Joint Swelling Extremities: No: Cold, Cool, Cyanosis Edema: No Integumentary: No: Rash, Venous Stasis Changes Neurological: Yes: Alert, Oriented ...Motor Strength: WNL Psychiatric: Yes: Alert, Oriented. No: Agitated, Suicidal Ideation Labs: CBC, BMP 06/15/18 06:10 06/15/18 06:10 INR, PTT INR 1.12 (0.83-1.09) H 06/07/18 16:15 - ....Imaging Other: Report Reviewed Assessment/Plan The patient is an 82 year old male with a PMH of COPD (not on home O2),Afib (on Elqiuis) HTN, CKD, OA, Gout, diverticulosis admitted with worsening shortness of breath and non-productive cough. Diagnosed with URI, anemia, CHF and arrhythmia Rapid AFib IV antibiotics cardiology and GI f/u anemia w/u heme and renal f/u f/u labs falls PFX bed alarm OOB with PT d/w pt and staff
[2018-06-15] MEDS ORDERED: cefTRIAXone SODIUM 1 GM VIAL ONE (09:53)
[2018-06-15] MEDS ORDERED: DEXTROSE 5%-WATER - 50 ML IVPB ONE (09:53)
[2018-06-15] MEDS: APIXABAN 2.5 MG TABLET PO SCH ×2 (09:56→21:14)
[2018-06-15] MEDS: ALLOPURINOL 100 MG TABLET (FP) PO SCH ×2 (09:56→21:14)
[2018-06-15] MEDS: FUROSEMIDE 20 MG TABLET (FP) PO SCH (09:56)
[2018-06-15] MEDS: CEFTRIAXONE 1 GM in DEXTROSE 5%-WATER - 50 ML IVPB SCH (09:56)
[2018-06-15] MEDS: OMEGA-3 ACID ETHYL ESTERS (FATTY-ACIDS) 1 GM CAPSULE (FP) PO SCH ×2 (10:19→21:14)
--- NOTE | 2018-06-15 10:27 | PN ---
Progress Note, Physician Chief Complaint: The patient seen in his bed. Denies any chest pains, Has some cough at times. Maintains good urine output. History of Present Illness: Patient is an 82 year old male, well known to us, with underlying CKD3-4, and history of Hypertension/HCVD, GERD, CAD, Systolic dysfunction, Pancreatic Cyst, history of Diverticulosis and persistent atrial fibrillation on Eliquis. He presented with week history of progressive cough, dyspnea, orthopnea, without chest pain, palpitations, PND or LE edema. The patient was noted to have an Acute Respiratory infection, Pneumonia. being treated with IV Azithromycin and Ceftriaxone. The patient has CKD 3-4 - Current Medication List Current Medications: Active Medications Allopurinol (Zyloprim -) 100 mg PO BID [facility] Last Admin: 06/15/18 09:56 Dose: 100 mg Apixaban (Eliquis -) 2.5 mg PO BID [facility] Last Admin: 06/15/18 09:56 Dose: 2.5 mg Diltiazem HCl (Cardizem Injection -) 10 mg IVPUSH Q4H PRN PRN Reason: TACHYCARDIA Furosemide (Lasix -) 20 mg PO DAILY [facility] Last Admin: 06/15/18 09:56 Dose: 20 mg Azithromycin (Zithromax 500mg Ivpb (Pre-Docked)) 500 mg in 250 mls @ 250 mls/ hr IVPB DAILY [facility] Last Admin: 06/14/18 09:06 Dose: 250 mls/hr Ceftriaxone Sodium 1 gm/ (Dextrose) 50 mls @ 100 mls/hr IVPB DAILY [facility] Last Admin: 06/15/18 09:56 Dose: 100 mls/hr Metoprolol Succinate (Toprol Xl -) 100 mg PO BID [facility] Last Admin: 06/15/18 09:56 Dose: 100 mg Lycpq-3-Kwym Ethyl Esters (Lovaza -) 1 gm PO BID [facility] Last Admin: 06/15/18 10:19 Dose: 1 gm - Objective Vital Signs: Vital Signs Temperature 98.2 F 06/15/18 09:57 Pulse Rate 76 06/15/18 09:57 Respiratory Rate 18 06/15/18 09:57 Blood Pressure 120/76 06/15/18 09:57 O2 Sat by Pulse Oximetry (%) 97 06/14/18 20:47 Constitutional: Yes: Anxious Eyes: Yes: Conjunctiva Clear HENT: Yes: Normocephalic Neck: Yes: Trachea Midline Cardiovascular: Yes: S1, S2 Gastrointestinal: Yes: Normal Bowel Sounds, Soft Genitourinary: No: Bladder Distention, CVA Tenderness - Left, CVA Tenderness - Right, Hematuria Labs: CBC, BMP 06/15/18 06:10 06/15/18 06:10 INR, PTT INR 1.12 (0.83-1.09) H 06/07/18 16:15 Problem List - Problems (1) NAYANA (acute kidney injury) Code(s): N17.9 - ACUTE KIDNEY FAILURE, UNSPECIFIED (2) Acute on chronic systolic heart failure Code(s): I50.23 - ACUTE ON CHRONIC SYSTOLIC (CONGESTIVE) HEART FAILURE (3) Anemia Code(s): D64.9 - ANEMIA, UNSPECIFIED Qualifiers: Iron deficiency anemia type: unspecified iron deficiency (4) Atrial fibrillation with rapid ventricular response Code(s): I48.91 - UNSPECIFIED ATRIAL FIBRILLATION (5) CRF (chronic renal failure) Code(s): N18.9 - CHRONIC KIDNEY DISEASE, UNSPECIFIED (6) PNA (pneumonia) Code(s): J18.9 - PNEUMONIA, UNSPECIFIED ORGANISM (7) Acute on chronic renal failure Code(s): N17.9 - ACUTE KIDNEY FAILURE, UNSPECIFIED; N18.9 - CHRONIC KIDNEY DISEASE, UNSPECIFIED Qualifiers: Chronic kidney disease stage: stage 3 (moderate) (8) Hypertension Code(s): I10 - ESSENTIAL (PRIMARY) HYPERTENSION Qualifiers: Hypertension type: essential hypertension Qualified Code(s): I10 - Essential (primary) hypertension Assessment/Plan Patient is an 82 year old male, well known to us, with underlying CKD3-4, and history of hypertension/HCVD, GERD, CAD, Systolic dysfunction, pancreatic cyst, history of diverticulosis and persistent atrial fibrillation on Eliquis. He presented with week history of progressive cough, dyspnea, orthopnea, without chest pain, palpitations, PND or LE edema. The patient was noted to have an Acute Respiratory infection, Pneumonia. being treated with IV Azithromycin and Ceftriaxone. 1. Acute on Chronic Kidney failure in this 82 y/o male with underlying Microvascular Renal disease. The Serum Cr has improved to 2.6 mg/dL 2. The Acute renal failure is most likely due to Acute hemodynamic factors related to the current cardio-pulmonary events, resulting in renal hypoperfusion , and worsening of azotemia. 3. Anemia...of chronic disease. but cannot r/o blood loss anemia. Noted GI evaluation in progress. Hematology notes noted. No emergency interventions required at this point from renal perspective. Electrolytes in acceptable range. Renal functions expected to eventually settle at his baseline. Will continue the current antibiotics. Thanks again. Mary Finley MD
[2018-06-15] MEDS: AZITHROMYCIN IVPB 500 MG/250 ML BAG IVPB SCH (10:50)
--- NOTE | 2018-06-15 11:16 | PN ---
Progress Note, Physician Chief Complaint: Events noted Feels better History of Present Illness: Patient was seen and examined. Awake and alert. Chart was reviewed Denies chest pain, SOB or palpitations - Current Medication List Current Medications: Active Medications Allopurinol (Zyloprim -) 100 mg PO BID [facility] Last Admin: 06/15/18 09:56 Dose: 100 mg Apixaban (Eliquis -) 2.5 mg PO BID [facility] Last Admin: 06/15/18 09:56 Dose: 2.5 mg Diltiazem HCl (Cardizem Injection -) 10 mg IVPUSH Q4H PRN PRN Reason: TACHYCARDIA Furosemide (Lasix -) 20 mg PO DAILY [facility] Last Admin: 06/15/18 09:56 Dose: 20 mg Azithromycin (Zithromax 500mg Ivpb (Pre-Docked)) 500 mg in 250 mls @ 250 mls/ hr IVPB DAILY [facility] Last Admin: 06/14/18 09:06 Dose: 250 mls/hr Ceftriaxone Sodium 1 gm/ (Dextrose) 50 mls @ 100 mls/hr IVPB DAILY [facility] Last Admin: 06/15/18 09:56 Dose: 100 mls/hr Metoprolol Succinate (Toprol Xl -) 100 mg PO BID [facility] Last Admin: 06/15/18 09:56 Dose: 100 mg Dqulz-4-Kfok Ethyl Esters (Lovaza -) 1 gm PO BID [facility] Last Admin: 06/15/18 10:19 Dose: 1 gm - Objective Vital Signs: Vital Signs Temperature 98.2 F 06/15/18 09:57 Pulse Rate 76 06/15/18 09:57 Respiratory Rate 18 06/15/18 09:57 Blood Pressure 120/76 06/15/18 09:57 O2 Sat by Pulse Oximetry (%) 97 06/14/18 20:47 Neck: Yes: Supple Cardiovascular: Yes: Pulse Irregular, S1, S2 Respiratory: Yes: Diminished Gastrointestinal: Yes: Normal Bowel Sounds, Soft. No: Tenderness Edema: No Additional Findings/Remarks: - Review of Systems Constitutional: denies: Chills, Fever Cardiovascular: denies: Chest Pain, Palpitations, (+) Shortness of Breath Respiratory: (+) Cough, denies: Hemoptysis, Orthopnea, PND, (+) SOB, SOB on Exertion Gastrointestinal: denies: Nausea. denies: Abdominal Pain, Constipation, Diarrhea, Melena, Rectal Bleeding, Vomiting Genitourinary: denies: Dysuria, Hematuria Musculoskeletal: denies: Back Pain, Joint Pain Neurological: denies: Dizziness, Syncope. denies: Change in Speech, Headache, Numbness, Seizure, Tremors, Unsteady Gait, Weakness Labs: CBC, BMP 06/15/18 06:10 06/15/18 06:10 INR, PTT INR 1.12 (0.83-1.09) H 06/07/18 16:15 Problem List - Problems (1) Acute on chronic systolic heart failure Code(s): I50.23 - ACUTE ON CHRONIC SYSTOLIC (CONGESTIVE) HEART FAILURE (2) Atrial fibrillation with rapid ventricular response Code(s): I48.91 - UNSPECIFIED ATRIAL FIBRILLATION (3) CRF (chronic renal failure) Code(s): N18.9 - CHRONIC KIDNEY DISEASE, UNSPECIFIED (4) Demand ischemia Code(s): I24.8 - OTHER FORMS OF ACUTE ISCHEMIC HEART DISEASE (5) Hypertensive heart disease Code(s): I11.9 - HYPERTENSIVE HEART DISEASE WITHOUT HEART FAILURE Qualifiers: Heart failure presence: with heart failure Heart failure type: combined systolic and diastolic Heart failure chronicity: acute on chronic Qualified Code(s): I11.0 - Hypertensive heart disease with heart failure; I50.43 - Acute on chronic combined systolic (congestive) and diastolic (congestive) heart failure (6) Acute on chronic renal failure Code(s): N17.9 - ACUTE KIDNEY FAILURE, UNSPECIFIED; N18.9 - CHRONIC KIDNEY DISEASE, UNSPECIFIED Qualifiers: Chronic kidney disease stage: stage 3 (moderate) (7) Diverticular hemorrhage Code(s): K57.31 - DVRTCLOS OF LG INT W/O PERFORATION OR ABSCESS W BLEEDING (8) Hypertension Code(s): I10 - ESSENTIAL (PRIMARY) HYPERTENSION Qualifiers: Hypertension type: essential hypertension Qualified Code(s): I10 - Essential (primary) hypertension Assessment/Plan 1. Dyspnea, orthopnea, cough referable to acute on chronic systolic heart failure and subendocardial ischemia +/- URI 2. Persistent atrial fibrillation with RVR on Eliquis - [id number] score of 3-4 3. Hypertension/HCVD 4. Hyperlipidemia 5. COPD 6. Acute on CKD 7. Anemia of chronic disease 8. History of diverticular bleed PLAN: 1. Oral diuretics 2. Continue Eliquis 2.5 mg BID, Metoprolol ER 100 mg BID and Losartan can be restarted when feasible if renal function is stable 3. Monitor hemoglobin closely and transfuse as needed maintaining hemoglobin 8.0 and above 4. Antibiotic coverage Further plans are to follow Ras Cleveland MD
[2018-06-15 12:57] LABS: ANISOCYTOSIS 2+; MACROCYTOSIS 0; PLATELET ESTIMATE NORMAL; TEAR DROP CELLS 1+
--- NOTE | 2018-06-15 14:53 | PN ---
Physical Exam: SUBJECTIVE: Patient seen and examined; no new complaints; less cough OBJECTIVE: Vital Signs Period Temp Pulse Resp BP Sys/Berger Pulse Ox Last 24 Hr 96.9 F-98.4 F 72-89 18-20 108-123/57-85 97-97 GENERAL: The patient is awake, alert, and fully oriented, in no acute distress. NECK: Trachea midline, full range of motion, supple. LUNGS: Breath sounds equal, clear to auscultation bilaterally, no wheezes, no crackles, no accessory muscle use. HEART: Regular rate and rhythm, S1, S2 without murmur, rub or gallop. ABDOMEN: Soft, nontender, nondistended, normoactive bowel sounds, no guarding, no rebound, no hepatosplenomegaly, no masses. EXTREMITIES: 2+ pulses, warm, well-perfused, no edema. NEUROLOGICAL: Cranial nerves II through XII grossly intact. Normal speech, gait not observed. PSYCH: Normal mood, normal affect. SKIN: Warm, dry, normal turgor, no rashes or lesions noted Laboratory Results - last 24 hr 06/11/18 06/15/18 06/15/18 06:00 06:10 06:10 WBC 7.6 RBC 3.95 L Hgb 10.2 L Hct 31.7 L MCV 80.3 MCH 26.0 MCHC 32.4 RDW 18.9 H Plt Count 255 MPV 8.8 Absolute Neuts (auto) 5.1 Neutrophils % 67.0 Neutrophils % (Manual) 62.4 Band Neutrophils % 3.0 Lymphocytes % 18.4 Lymphocytes % (Manual) 15.8 Monocytes % 8.1 Monocytes % (Manual) 6 Eosinophils % 5.1 H Eosinophils % (Manual) 5.9 H D Basophils % 1.4 Basophils % (Manual) 3.0 H Myelocytes % (Man) 2 D Promyelocytes % (Man) 0 Blast Cells % (Manual) 0 Nucleated RBC % 0 Metamyelocytes 2 D Hypochromia 1+ Platelet Estimate Normal Polychromasia 2+ Poikilocytosis 1+ Anisocytosis 2+ Microcytosis 2+ Macrocytosis 0 Tear Drop Cells 1+ Tae Cells 1+ Retic Count Sodium 143 Potassium 3.8 Chloride 109 H Carbon Dioxide 26 Anion Gap 7 L BUN 55 H Creatinine 2.6 H Creat Clearance w eGFR 23.69 Random Glucose 90 Calcium 7.9 L Total Bilirubin 0.6 AST 15 ALT 18 Alkaline Phosphatase 109 LD Total 258 H Total Protein 5.5 L Total Protein (PEP) 5.9 L Albumin 3.0 L Albumin (PEP) 3.3 Globulin 2.6 Albumin/Globulin Ratio 1.3 Beta Globulins 0.8 BHUMIKA M-Kevin Not observed 06/15/18 06:10 WBC RBC Hgb Hct MCV MCH MCHC RDW Plt Count MPV Absolute Neuts (auto) Neutrophils % Neutrophils % (Manual) Band Neutrophils % Lymphocytes % Lymphocytes % (Manual) Monocytes % Monocytes % (Manual) Eosinophils % Eosinophils % (Manual) Basophils % Basophils % (Manual) Myelocytes % (Man) Promyelocytes % (Man) Blast Cells % (Manual) Nucleated RBC % Metamyelocytes Hypochromia Platelet Estimate Polychromasia Poikilocytosis Anisocytosis Microcytosis Macrocytosis Tear Drop Cells Tae Cells Retic Count 4.03 H D Sodium Potassium Chloride Carbon Dioxide Anion Gap BUN Creatinine Creat Clearance w eGFR Random Glucose Calcium Total Bilirubin AST ALT Alkaline Phosphatase LD Total Total Protein Total Protein (PEP) Albumin Albumin (PEP) Globulin Albumin/Globulin Ratio Beta Globulins BHUMIKA M-Kevin Active Medications Generic Name Dose Route Start Last Admin Trade Name Freq PRN Reason Stop Dose Admin Allopurinol 100 mg 06/08/18 10:00 06/15/18 09:56 Zyloprim - PO 100 mg BID PRISCILLA Administration Apixaban 2.5 mg 06/07/18 22:00 06/15/18 09:56 Eliquis - PO 2.5 mg BID PRISCILLA Administration Diltiazem HCl 10 mg 06/07/18 19:07 Cardizem Injection - IVPUSH Q4H PRN TACHYCARDIA Furosemide 20 mg 06/11/18 10:00 06/15/18 09:56 Lasix - PO 20 mg DAILY PRISCILLA Administration Azithromycin 500 mg in 250 mls @ 250 mls/hr 06/08/18 10:00 06/15/18 10:50 Zithromax 500mg Ivpb (Pre-Docked) IVPB 250 mls/hr DAILY PRISCILLA Administration Ceftriaxone Sodium 1 gm/ 50 mls @ 100 mls/hr 06/08/18 10:00 06/15/18 09:56 Dextrose IVPB 100 mls/hr DAILY PRISCILLA Administration Metoprolol Succinate 100 mg 06/11/18 10:52 06/15/18 09:56 Toprol Xl - PO 100 mg BID PRISCILLA Administration Rvccd-0-Eaxu Ethyl Esters 1 gm 06/08/18 10:00 06/15/18 10:19 Lovaza - PO 1 gm BID PRISCILLA Administration Chest CT: Impression: Bibasal atelectatic changes with fine nodularity, right more than left likely post inflammatory/ infectious. There are also faint nodules in the right up per and middle lobe measuring up to 5 mm which are nonspecific. A follow-up CT scan of the chest within one month would be helpful for further evaluation. No gross focal infiltrates identified. Mild to moderate cardiomegaly. A couple of low-attenuation densities in the liver likely representing cysts. Please correlate with liver ultrasound. Nonvisualization of the gallbladder. Dilatation of the common hepatic and common bile duct measuring up to 1.5 cm. Correlate clinically for further evaluation. Bilateral renal cortical atrophy. Large exophytic right renal simple cyst measuring 7.5 cm. Scattered diverticula in the colon without evidence of acute diverticulitis. 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 1.1 cm focal low-attenuation density in L3 vertebral body which is nonspecific. Cannot rule out a lytic lesion. Correlate clinically for further evaluation. If clinically indicated correlation with MRI of the lumbar spine could be obtained. ASSESSMENT/PLAN: This is a 82 year old male with afib, copd, chf, ckd, anemia, who presented with confusion, found to be in rapid atrial fibrillation, acute kidney failure, acute CHF, hx of prostate CA,we were called to evaluate patient for anemia. Patient presented with hemoglobin of 8.4 that decreased to 7.5; s/p 1UPRB and venofer. Microcytic anemia possible from chronic GI bleed; iron def anemia. He was also found to have cyst on pancreas. Iron def. anemia Pancreatic cysts Toponemia; likely demand ischemia Acute kidney failure Acute on chronic chf Atrial fib RVR dementia vs delirium? hx COPD hx of prostate CA -Infection with ineffective erythropoiesis -CT report noted; as above -screening test pending -no acute bleeding; FOBT negative -hemoglobin stable after 1UPRBC; monitor cbc; -s/p venofer ; cont iron supp -hemoglobin electrophoresis for anemia; -spep /upep ; immunoglobulins ans immunofixation pending ; MDS w/u for AG ratio >1 -need to eval pancreatic cyst and dilated CBD; cannot due MRI due to NAYANA; -lopez endoscopy as per GI; -cont AC for now; will need to hold eliqus for 3 days prior to endoscopy due to renal disease will follow Visit type - Emergency Visit Emergency Visit: Yes ED Registration Date: 06/07/18 Care time: The patient presented to the Emergency Department on the above date and was hospitalized for further evaluation of their emergent condition. - New Patient This patient is new to me today: No - Critical Care Critical Care patient: No
[2018-06-15] MEDS ORDERED: PT OWN MED DRAWER 7, Y5N ONE (21:11)
[2018-06-16 08:09] LABS: IGA IMMUNOGLOBULIN 106 mg/dL (61-437); IGM IMMUNOGLOBULIN 114 mg/dL (15-143)
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
[2018-06-16] MEDS ORDERED: cefTRIAXone SODIUM 1 GM VIAL ONE (09:59)
[2018-06-16] MEDS ORDERED: PT OWN MED DRAWER 7, Y5N ONE ×2 (09:59→15:17)
[2018-06-16] MEDS ORDERED: DEXTROSE 5%-WATER - 50 ML IVPB ONE (10:00)
[2018-06-16] MEDS: CEFTRIAXONE 1 GM in DEXTROSE 5%-WATER - 50 ML IVPB SCH (10:04)
[2018-06-16] MEDS: FUROSEMIDE 20 MG TABLET (FP) PO SCH (10:05)
[2018-06-16] MEDS: APIXABAN 2.5 MG TABLET PO SCH ×2 (10:05→21:53)
[2018-06-16] MEDS: ALLOPURINOL 100 MG TABLET (FP) PO SCH ×2 (10:05→21:53)
[2018-06-16] MEDS: OMEGA-3 ACID ETHYL ESTERS (FATTY-ACIDS) 1 GM CAPSULE (FP) PO SCH ×2 (10:06→21:53)
[2018-06-16] MEDS: AZITHROMYCIN IVPB 500 MG/250 ML BAG IVPB SCH (10:06)
[2018-06-16 12:51] VITALS: BMI 19.7
--- NOTE | 2018-06-16 13:02 | PN ---
Progress Note (short form) - Note Progress Note: PULMONARY CONSULTATION DICTATED 06/16/18 IMP DYSPNEA ACUTE ON CHRONIC CHF LV SYSTOLIC DYSFUNCTION AFIB BRONCHITIS PULMONARY NODULES ACUTE ON CHRONIC KIDNEY DISEASE SUB-ENDOCARDIAL ISCHEMIA ANEMIA HTN HLD PLAN LASIX O2 INHALED BRONCHODILATORS DAILY WT MONITOR LYTES,RENAL FUNCTION MONITOR H+H NORMAL TRANSFUSION THRESHOLD F/U CHEST CT [address] HULL Problem List - Problems (1) Acute on chronic systolic heart failure Code(s): I50.23 - ACUTE ON CHRONIC SYSTOLIC (CONGESTIVE) HEART FAILURE (2) Anemia Code(s): D64.9 - ANEMIA, UNSPECIFIED Qualifiers: Iron deficiency anemia type: unspecified iron deficiency (3) Atrial fibrillation with rapid ventricular response Code(s): I48.91 - UNSPECIFIED ATRIAL FIBRILLATION (4) Chronic anticoagulation Code(s): Z79.01 - RETIREMENT (CURRENT) USE OF ANTICOAGULANTS (5) Demand ischemia Code(s): I24.8 - OTHER FORMS OF ACUTE ISCHEMIC HEART DISEASE (6) Acute on chronic renal failure Code(s): N17.9 - ACUTE KIDNEY FAILURE, UNSPECIFIED; N18.9 - CHRONIC KIDNEY DISEASE, UNSPECIFIED Qualifiers: Chronic kidney disease stage: stage 3 (moderate) (7) Altered mental status Code(s): R41.82 - ALTERED MENTAL STATUS, UNSPECIFIED Qualifiers: Altered mental status type: disorientation Qualified Code(s): R41.0 - Disorientation, unspecified
--- NOTE | 2018-06-16 14:57 | PN ---
Progress Note, Physician Chief Complaint: The patient seen in his bed. Denies any chest pains. Maintains good urine output. Denies any new complaints. Still with some cough History of Present Illness: Patient is an 82 year old male, well known to us, with underlying CKD3-4, and history of Hypertension/HCVD, GERD, CAD, Systolic dysfunction, Pancreatic Cyst, history of Diverticulosis and persistent atrial fibrillation on Eliquis. He presented with week history of progressive cough, dyspnea, orthopnea, without chest pain, palpitations, PND or LE edema. The patient was noted to have an Acute Respiratory infection, Pneumonia. being treated with IV Azithromycin and Ceftriaxone. The patient has CKD 3-4 - Current Medication List Current Medications: Active Medications Allopurinol (Zyloprim -) 100 mg PO BID [facility] Last Admin: 06/16/18 10:05 Dose: 100 mg Apixaban (Eliquis -) 2.5 mg PO BID [facility] Last Admin: 06/16/18 10:05 Dose: 2.5 mg Diltiazem HCl (Cardizem Injection -) 10 mg IVPUSH Q4H PRN PRN Reason: TACHYCARDIA Furosemide (Lasix -) 20 mg PO DAILY [facility] Last Admin: 06/16/18 10:05 Dose: 20 mg Azithromycin (Zithromax 500mg Ivpb (Pre-Docked)) 500 mg in 250 mls @ 250 mls/ hr IVPB DAILY [facility] Last Admin: 06/16/18 10:06 Dose: 250 mls/hr Ceftriaxone Sodium 1 gm/ (Dextrose) 50 mls @ 100 mls/hr IVPB DAILY [facility] Last Admin: 06/16/18 10:04 Dose: 100 mls/hr Levalbuterol HCl (Xopenex) 0.31 mg IH RTID [facility] Metoprolol Succinate (Toprol Xl -) 100 mg PO BID [facility] Last Admin: 06/16/18 10:05 Dose: 100 mg Ekwiq-4-Amoy Ethyl Esters (Lovaza -) 1 gm PO BID [facility] Last Admin: 06/16/18 10:06 Dose: 1 gm - Objective Vital Signs: Vital Signs Temperature 97.6 F 06/16/18 10:00 Pulse Rate 82 06/16/18 10:00 Respiratory Rate 19 06/16/18 10:00 Blood Pressure 111/66 06/16/18 10:00 O2 Sat by Pulse Oximetry (%) 3 L 06/16/18 09:00 Constitutional: Yes: Anxious Eyes: Yes: WNL HENT: Yes: Normocephalic Cardiovascular: Yes: Tachycardia, Pulse Irregular, S1, S2 Respiratory: Yes: Cough, Diminished, Rhonchi Gastrointestinal: Yes: Normal Bowel Sounds, Soft Edema: No Labs: CBC, BMP 06/15/18 06:10 06/15/18 06:10 INR, PTT INR 1.12 (0.83-1.09) H 06/07/18 16:15 Problem List - Problems (1) NAYANA (acute kidney injury) Code(s): N17.9 - ACUTE KIDNEY FAILURE, UNSPECIFIED (2) Acute on chronic systolic heart failure Code(s): I50.23 - ACUTE ON CHRONIC SYSTOLIC (CONGESTIVE) HEART FAILURE (3) Anemia Code(s): D64.9 - ANEMIA, UNSPECIFIED Qualifiers: Iron deficiency anemia type: unspecified iron deficiency (4) Atrial fibrillation with rapid ventricular response Code(s): I48.91 - UNSPECIFIED ATRIAL FIBRILLATION (5) CRF (chronic renal failure) Code(s): N18.9 - CHRONIC KIDNEY DISEASE, UNSPECIFIED (6) PNA (pneumonia) Code(s): J18.9 - PNEUMONIA, UNSPECIFIED ORGANISM (7) Acute on chronic renal failure Code(s): N17.9 - ACUTE KIDNEY FAILURE, UNSPECIFIED; N18.9 - CHRONIC KIDNEY DISEASE, UNSPECIFIED Qualifiers: Chronic kidney disease stage: stage 3 (moderate) (8) Hypertension Code(s): I10 - ESSENTIAL (PRIMARY) HYPERTENSION Qualifiers: Hypertension type: essential hypertension Qualified Code(s): I10 - Essential (primary) hypertension Assessment/Plan Patient is an 82 year old male, well known to us, with underlying CKD3-4, and history of hypertension/HCVD, GERD, CAD, Systolic dysfunction, pancreatic cyst, history of diverticulosis and persistent atrial fibrillation on Eliquis. He presented with week history of progressive cough, dyspnea, orthopnea, without chest pain, palpitations, PND or LE edema. The patient was noted to have an Acute Respiratory infection, Pneumonia. being treated with IV Azithromycin and Ceftriaxone. 1. Acute on Chronic Kidney failure in this 82 y/o male with underlying Microvascular Renal disease. The Serum Cr has improved to 2.6 mg/dL 2. The Acute renal failure is most likely due to Acute hemodynamic factors related to the current cardio-pulmonary events, resulting in renal hypoperfusion. Azotemia tends to improve. 3. Anemia...of chronic disease. but cannot r/o blood loss anemia. Noted GI evaluation in progress. Hematology notes noted. Renal functions expected to eventually settle at his baseline. Continue Lasix. Will continue the current antibiotics. Thanks again. Mary Finley MD
--- NOTE | 2018-06-16 15:11 | PN ---
Physical Exam: SUBJECTIVE: Patient seen and examined; no complaints; h/h remain stable at this time 02/24.7 OBJECTIVE: Vital Signs Period Temp Pulse Resp BP Sys/Berger Pulse Ox Last 24 Hr 97.0 F-97.8 F 68-82 18-20 97-111/55-70 3-96 GENERAL: The patient is awake, alert, and fully oriented, in no acute distress. LUNGS: congestion ; scattered rhonchi HEART: Regular rate and rhythm, S1, S2 without murmur, rub or gallop. ABDOMEN: Soft, nontender, nondistended, normoactive bowel sounds, no guarding, no rebound, no hepatosplenomegaly, no masses. EXTREMITIES: 2+ pulses, warm, well-perfused, no edema. NEUROLOGICAL: Cranial nerves II through XII grossly intact. Normal speech, gait not observed. PSYCH: Normal mood, normal affect. SKIN: Warm, dry, normal turgor, no rashes or lesions noted Laboratory Results - last 24 hr 06/15/18 06/15/18 06:10 06:10 IgG Cancelled 456 L IgA 106 IgM 114 Active Medications Generic Name Dose Route Start Last Admin Trade Name Freq PRN Reason Stop Dose Admin Allopurinol 100 mg 06/08/18 10:00 06/16/18 10:05 Zyloprim - PO 100 mg BID PRISCILLA Administration Apixaban 2.5 mg 06/07/18 22:00 06/16/18 10:05 Eliquis - PO 2.5 mg BID PRISCILLA Administration Diltiazem HCl 10 mg 06/07/18 19:07 Cardizem Injection - IVPUSH Q4H PRN TACHYCARDIA Furosemide 20 mg 06/11/18 10:00 06/16/18 10:05 Lasix - PO 20 mg DAILY PRISCILLA Administration Azithromycin 500 mg in 250 mls @ 250 mls/hr 06/08/18 10:00 06/16/18 10:06 Zithromax 500mg Ivpb (Pre-Docked) IVPB 250 mls/hr DAILY PRISCILLA Administration Ceftriaxone Sodium 1 gm/ 50 mls @ 100 mls/hr 06/08/18 10:00 06/16/18 10:04 Dextrose IVPB 100 mls/hr DAILY PRISCILLA Administration Levalbuterol HCl 0.31 mg 06/16/18 14:00 Xopenex IH RTID PRISCILLA Metoprolol Succinate 100 mg 06/11/18 10:52 06/16/18 10:05 Toprol Xl - PO 100 mg BID PRISCILLA Administration Wbpmf-8-Vthc Ethyl Esters 1 gm 06/08/18 10:00 06/16/18 10:06 Lovaza - PO 1 gm BID PRISCILLA Administration ASSESSMENT/PLAN: Chest CT: Impression: Bibasal atelectatic changes with fine nodularity, right more than left likely post inflammatory/ infectious. There are also faint nodules in the right up per and middle lobe measuring up to 5 mm which are nonspecific. A follow-up CT scan of the chest within one month would be helpful for further evaluation. No gross focal infiltrates identified. Mild to moderate cardiomegaly. A couple of low-attenuation densities in the liver likely representing cysts. Please correlate with liver ultrasound. Nonvisualization of the gallbladder. Dilatation of the common hepatic and common bile duct measuring up to 1.5 cm. Correlate clinically for further evaluation. Bilateral renal cortical atrophy. Large exophytic right renal simple cyst measuring 7.5 cm. Scattered diverticula in the colon without evidence of acute diverticulitis. 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 1.1 cm focal low-attenuation density in L3 vertebral body which is nonspecific. Cannot rule out a lytic lesion. Correlate clinically for further evaluation. If clinically indicated correlation with MRI of the lumbar spine could be obtained. ASSESSMENT/PLAN: This is a 82 year old male with afib, copd, chf, ckd, anemia, who presented with confusion, found to be in rapid atrial fibrillation, acute kidney failure, acute CHF, hx of prostate CA,we were called to evaluate patient for anemia. Patient presented with hemoglobin of 8.4 that decreased to 7.5; s/p 1UPRB and venofer. Microcytic anemia possible from chronic GI bleed; iron def anemia. He was also found to have cyst on pancreas. Iron def. anemia Pancreatic cysts Toponemia; likely demand ischemia Acute kidney failure Acute on chronic chf Atrial fib RVR dementia vs delirium? hx COPD hx of prostate CA -Infection with ineffective erythropoiesis; -iron deficiency anemia; - h/h stable; increased corrected reticulocyte count ; possible actue blood loss anemia vs hemolysis; will order haptoglobin/ldh; fobt -venofer -CT report noted; as above; lung nodules; repeat chest CT in 6weeks -s/p venofer ; cont iron supp -hemoglobin electrophoresis for anemia pending -spep /upep ; immunoglobulins ans immunofixation pending ; MDS w/u for AG ratio >1 -need to eval pancreatic cyst and dilated CBD; cannot due MRI due to NAYANA; -lopez endoscopy as per GI; -cont AC for now; will need to hold eliqus for 3 days prior to endoscopy due to renal disease Visit type - Emergency Visit Emergency Visit: Yes ED Registration Date: 06/07/18 Care time: The patient presented to the Emergency Department on the above date and was hospitalized for further evaluation of their emergent condition. - New Patient This patient is new to me today: No - Critical Care Critical Care patient: No
[2018-06-16] MEDS: LEVALBUTEROL HCL 0.31 MG/3 ML VIAL.NEB IH SCH ×2 (15:20→21:18)
--- NOTE | 2018-06-16 15:38 | PN ---
Progress Note, Physician History of Present Illness: Cough, dyspnea, orthopnea resolving with diuresis, 17 lbs weight loss since admission. Underwent transfusion 1 U pRBC now with stable Hgb post transfusion. Afib with improved rate-control with Toprol XL uptitration. - Current Medication List Current Medications: Active Medications Allopurinol (Zyloprim -) 100 mg PO BID [facility] Last Admin: 06/16/18 10:05 Dose: 100 mg Apixaban (Eliquis -) 2.5 mg PO BID [facility] Last Admin: 06/16/18 10:05 Dose: 2.5 mg Diltiazem HCl (Cardizem Injection -) 10 mg IVPUSH Q4H PRN PRN Reason: TACHYCARDIA Furosemide (Lasix -) 20 mg PO DAILY [facility] Last Admin: 06/16/18 10:05 Dose: 20 mg Azithromycin (Zithromax 500mg Ivpb (Pre-Docked)) 500 mg in 250 mls @ 250 mls/ hr IVPB DAILY [facility] Last Admin: 06/16/18 10:06 Dose: 250 mls/hr Ceftriaxone Sodium 1 gm/ (Dextrose) 50 mls @ 100 mls/hr IVPB DAILY [facility] Last Admin: 06/16/18 10:04 Dose: 100 mls/hr Levalbuterol HCl (Xopenex) 0.31 mg IH RTID [facility] Last Admin: 06/16/18 15:20 Dose: 0.31 mg Metoprolol Succinate (Toprol Xl -) 100 mg PO BID [facility] Last Admin: 06/16/18 10:05 Dose: 100 mg Hxqik-4-Xene Ethyl Esters (Lovaza -) 1 gm PO BID [facility] Last Admin: 06/16/18 10:06 Dose: 1 gm - Objective Vital Signs: Vital Signs Temperature 97.8 F 06/16/18 14:57 Pulse Rate 72 06/16/18 14:57 Respiratory Rate 18 06/16/18 14:57 Blood Pressure 97/55 L 06/16/18 14:57 O2 Sat by Pulse Oximetry (%) 3 L 06/16/18 09:00 Constitutional: Yes: No Distress, Calm, Thin Neck: Yes: Supple Cardiovascular: Yes: Pulse Irregular Respiratory: Yes: Regular, Diminished Gastrointestinal: Yes: Normal Bowel Sounds, Soft Edema: No Labs: CBC, BMP 06/15/18 06:10 06/15/18 06:10 INR, PTT INR 1.12 (0.83-1.09) H 06/07/18 16:15 - ....Imaging EKG: Report Reviewed (Tele: Rate-controlled afib) Problem List - Problems (1) Acute on chronic systolic heart failure Code(s): I50.23 - ACUTE ON CHRONIC SYSTOLIC (CONGESTIVE) HEART FAILURE (2) Atrial fibrillation with rapid ventricular response Code(s): I48.91 - UNSPECIFIED ATRIAL FIBRILLATION (3) Hypertensive heart disease Code(s): I11.9 - HYPERTENSIVE HEART DISEASE WITHOUT HEART FAILURE Qualifiers: Heart failure presence: with heart failure Heart failure type: combined systolic and diastolic Heart failure chronicity: acute on chronic Qualified Code(s): I11.0 - Hypertensive heart disease with heart failure; I50.43 - Acute on chronic combined systolic (congestive) and diastolic (congestive) heart failure (4) Chronic anticoagulation Code(s): Z79.01 - QUALITY CONTROL TECHNICIAN (CURRENT) USE OF ANTICOAGULANTS (5) Acute on chronic renal failure Code(s): N17.9 - ACUTE KIDNEY FAILURE, UNSPECIFIED; N18.9 - CHRONIC KIDNEY DISEASE, UNSPECIFIED Qualifiers: Chronic kidney disease stage: stage 3 (moderate) (6) Diverticulosis Code(s): K57.90 - DVRTCLOS OF INTEST, PART UNSP, W/O PERF OR ABSCESS W/O BLEED Qualifiers: Diverticulosis site: unspecified location Diverticulosis bleeding: diverticulosis without bleeding Qualified Code(s): K57.90 - Diverticulosis of intestine, part unspecified, without perforation or abscess without bleeding (7) Subendocardial ischemia Code(s): I24.8 - OTHER FORMS OF ACUTE ISCHEMIC HEART DISEASE Assessment/Plan Echo: 06/08/2018 Moderate decreased LVEF 35-40%, mid-distal anteroseptal, inferolateral, apical HK, normal RV size and fxn, mod LAE, mild-mod MR, mild TR , mild pulm HTN, mild JR 1.1 cm^2, MG=11 mmHG, Tr [place] Echo 11/19/2017 Normal LV size, mild LVH, moderate decreased LVEF 35-40% with HK of apex, apical septum, apical inferior, apical lateral, mid anteroseptum, mid anterolateral basal anterolateral, basal anteroseptum and basal inferolateral segments, severe LAE, mild DOE, normal RV size and fxn, mild MR, TR, [place], RVSO 32 mmHg 1. Dyspnea, orthopnea, cough referable to acute on chronic systolic heart failure and subendocardial ischemia resolving 2. Persistent atrial fibrillation with RVR on Eliquis - [id number] score of 3-4 3. Mild aortic stenosis 4. Hypertension/HCVD 5. Hyperlipidemia 6. COPD 7. Acute on CKD improving 8. 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 History of diverticular bleed PLAN: 1. Continue oral diuresis with monitoring diuretic response, renal function and electrolytes 2. Continue Eliquis 2.5 mg BID with GI protection,Metoprolol ER 100 mg BID, Lovaza 1 bid and hold Losartan pending renal function stabilization 3. Monitor hemoglobin closely and transfuse as needed maintaining hemoglobin 8.0 and above 4. Panendoscopy as outpatient 5. PT->SNF
[2018-06-16] MEDS ORDERED: IRON SUCROSE INJECTION 200 MG in SODIUM CHLORIDE 90 ML IVPB ONE (16:12)
--- NOTE | 2018-06-17 06:19 | PN ---
Progress Note, Physician - Current Medication List Current Medications: Active Medications Allopurinol (Zyloprim -) 100 mg PO BID [facility] Last Admin: 06/16/18 21:53 Dose: 100 mg Apixaban (Eliquis -) 2.5 mg PO BID [facility] Last Admin: 06/16/18 21:53 Dose: 2.5 mg Diltiazem HCl (Cardizem Injection -) 10 mg IVPUSH Q4H PRN PRN Reason: TACHYCARDIA Furosemide (Lasix -) 20 mg PO DAILY [facility] Last Admin: 06/16/18 10:05 Dose: 20 mg Azithromycin (Zithromax 500mg Ivpb (Pre-Docked)) 500 mg in 250 mls @ 250 mls/ hr IVPB DAILY [facility] Last Admin: 06/16/18 10:06 Dose: 250 mls/hr Ceftriaxone Sodium 1 gm/ (Dextrose) 50 mls @ 100 mls/hr IVPB DAILY [facility] Last Admin: 06/16/18 10:04 Dose: 100 mls/hr Levalbuterol HCl (Xopenex) 0.31 mg IH RTID [facility] Last Admin: 06/16/18 21:18 Dose: 0.31 mg Metoprolol Succinate (Toprol Xl -) 100 mg PO BID [facility] Last Admin: 06/16/18 21:53 Dose: 100 mg Ernso-8-Mwll Ethyl Esters (Lovaza -) 1 gm PO BID [facility] Last Admin: 06/16/18 21:53 Dose: 1 gm - Objective Vital Signs: Vital Signs Temperature 97.4 F L 06/16/18 21:00 Pulse Rate 79 06/16/18 21:00 Respiratory Rate 20 06/16/18 21:00 Blood Pressure 125/52 L 06/16/18 21:00 O2 Sat by Pulse Oximetry (%) 3 L 06/16/18 21:00 Labs: CBC, BMP 06/15/18 06:10 06/15/18 06:10 INR, PTT INR 1.12 (0.83-1.09) H 06/07/18 16:15
[2018-06-17] MEDS: LEVALBUTEROL HCL 0.31 MG/3 ML VIAL.NEB IH SCH ×3 (08:00→20:58)
[2018-06-17 08:12] LABS: BASO % 0.7 % (0-2.0); EOS % 4.9 % (0-4.5); HEMATOCRIT 31.1 % (35.4-49); HEMOGLOBIN 9.9 GM/dL (11.7-16.9); LYMPH % 19.8 % (8-40); MCH 25.9 pg (25.7-33.7); MEAN PLT VOLUME 8.7 fl (7.5-11.1); MONO % 10.2 % (3.8-10.2); NEUT % 64.4 % (42.8-82.8); PLATELET COUNT 205 K/MM3 (134-434); RBC 3.84 M/mm3 (4.00-5.60); RDW 19.2 % (11.9-15.9); WHITE BLOOD COUNT 6.7 K/mm3 (4.0-10.0)
--- NOTE | 2018-06-17 08:33 | CONS ---
DATE OF CONSULTATION: 06/16/2018 PULMONARY CONSULTATION REFERRING PHYSICIAN: Neville Gates MD HISTORY OF PRESENT ILLNESS: The patient is an 82-year-old white male with a past medical history of hypertension, hypertensive cardiovascular disease, permanent atrial fibrillation, chronic kidney disease, left ventricular systolic dysfunction, pancreatic cyst, diverticulosis, anemia, admitted to [facility] with a complaint of a one-week history of progressive cough, shortness of breath, dyspnea on exertion, chest congestion and orthopnea. The patient denied any fever, chills, nausea, vomiting or diaphoresis. On admission, he was noted to be in rapid atrial fibrillation. He was started on IV Cardizem. He was started on IV Lasix. He was felt on admission to have [id number] congestive heart failure. He was also felt to have possible pneumonia and was started on broad-spectrum antibiotics. Hospitalization he is noted to be anemic with his hematocrit dropping down to 23 on June 09, for which he was transfused one unit of packed red blood cells. The patient is followed by for consultation. It had been felt that the patient had indolent bleeding from small valve vascular ectasia. The patient continued to improve. He had a persistent cough, but not productive, and dyspnea improved. The patient denies any history of COPD or asthma in the past. He has a history of smoking and quit many years ago. 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 He states that he normally ambulates short distances without dyspnea. He denies any history of respiratory failure in the past or ventilatory support. There is no history of travel. There is no history of DVT or PE in the past. PAST MEDICAL HISTORY: Again, this includes chronic CHF, anemia, chronic kidney disease, diverticulosis, history of GI bleed secondary to diverticular bleed in September 2016, permanent atrial fibrillation, hypertension, gout, osteoarthritis. REVIEW OF SYSTEMS: No orthopnea, no PND, no chest pain, no palpitations. Positive for cough. No fevers or chills, no hemoptysis. No abdominal pain. CURRENT MEDICATIONS: Zithromax, ceftriaxone, Eliquis, Zyloprim, Lovaza, Toprol, Cardizem and Lasix. PHYSICAL EXAMINATION: General: The patient is a well-developed, well-nourished male, awake and alert, in no acute distress. Vital Signs: He is afebrile. Blood pressure is 110/66, respiratory rate 19, O2 saturation is 95% on 3 liters of oxygen. HEENT: Head is normocephalic, atraumatic. Neck: Supple. Heart: Irregular, regular, S1, S2. Chest: Bibasilar crackles. Abdomen: Soft. Bowel sounds are positive. Extremities: No cyanosis or edema. LABORATORY: WBC is 7.6, hemoglobin 10.2, hematocrit 31.7, platelet count of 255,000. INR is 1.12. Blood gas not performed. Chemistries include BUN 55, creatinine 2.6. A chest x-ray shows cardiomegaly but no acute infiltrates or effusion. A chest CT shows no bibasilar atelectatic change might be post-inflammatory; of the upper and middle lobes 5 mm. IMPRESSION: 1. Dyspnea, chest congestion, most likely secondary to [id number] congestive heart failure, clinically improving. 2. Permanent atrial fibrillation. 3. Hypertension. 4. bronchitis. 5. Chzoh-mr-hfaaafb kidney disease. 6. Anemia. 7. Hyperlipidemia. PLAN: 1. Continue Lasix. 2. Supplemental O2. 3. Inhaled bronchodilators. 4. Continue daily weights. 5. Monitor renal function. 6. Monitor hemoglobin and hematocrit. 7. Normal transfusion protocol. 8. Will obtain followup chest CT in approximately six weeks to document resolution of the nodularity as well as atelectatic changes. AISSATOU HULL M.D. ALIVIA/[id number]
[2018-06-17 08:47] LABS: ALBUMIN 2.9 g/dl (3.4-5.0); ALK PHOS 106 U/L (45-117); ANION GAP 8 MMOL/L (8-16); BILIRUBIN,TOTAL 0.6 mg/dL (0.2-1); BLOOD UREA NITROGEN 46 mg/dL (7-18); CHLORIDE 108 mmol/L (98-107); CO2 27 mmol/L (21-32); CREATININE 2.4 mg/dL (0.55-1.3); GLUCOSE,RANDOM 79 mg/dL (74-106); POTASSIUM 3.7 mmol/L (3.5-5.1); SGOT/AST 13 U/L (15-37); SGPT/ALT 17 U/L (13-61); SODIUM 143 mmol/L (136-145); TOT PROT 5.2 g/dl (6.4-8.2)
[2018-06-17] MEDS ORDERED: cefTRIAXone SODIUM 1 GM VIAL ONE (09:06)
[2018-06-17] MEDS ORDERED: DEXTROSE 5%-WATER - 50 ML IVPB ONE (09:06)
[2018-06-17 09:11] LABS: LDH 230 U/L (87-246)
[2018-06-17] MEDS: AZITHROMYCIN IVPB 500 MG/250 ML BAG IVPB SCH (09:30)
[2018-06-17] MEDS: CEFTRIAXONE 1 GM in DEXTROSE 5%-WATER - 50 ML IVPB SCH (09:30)
[2018-06-17] MEDS: APIXABAN 2.5 MG TABLET PO SCH (09:30)
[2018-06-17] MEDS: ALLOPURINOL 100 MG TABLET (FP) PO SCH (09:30)
[2018-06-17] MEDS: FUROSEMIDE 20 MG TABLET (FP) PO SCH (09:30)
--- NOTE | 2018-06-17 10:14 | PN ---
Progress Note, Physician Chief Complaint: The patient seen in his bed. Denies any chest pains. Maintains good urine output. Denies any new complaints. Still with some cough Has lost significant amounts of weight since admission History of Present Illness: Patient is an 82 year old male, well known to us, with underlying CKD3-4, and history of Hypertension/HCVD, GERD, CAD, Systolic dysfunction, Pancreatic Cyst, history of Diverticulosis and persistent atrial fibrillation on Eliquis. He presented with one week history of progressive cough, dyspnea, orthopnea, without chest pain, palpitations, PND or LE edema. The patient was noted to have an Acute Respiratory infection, Pneumonia. being treated with IV Azithromycin and Ceftriaxone. The patient has CKD 3-4 - Current Medication List Current Medications: Active Medications Allopurinol (Zyloprim -) 100 mg PO BID [facility] Last Admin: 06/17/18 09:30 Dose: 100 mg Apixaban (Eliquis -) 2.5 mg PO BID [facility] Last Admin: 06/17/18 09:30 Dose: 2.5 mg Diltiazem HCl (Cardizem Injection -) 10 mg IVPUSH Q4H PRN PRN Reason: TACHYCARDIA Furosemide (Lasix -) 20 mg PO DAILY [facility] Last Admin: 06/17/18 09:30 Dose: 20 mg Azithromycin (Zithromax 500mg Ivpb (Pre-Docked)) 500 mg in 250 mls @ 250 mls/ hr IVPB DAILY [facility] Last Admin: 06/17/18 09:30 Dose: 250 mls/hr Ceftriaxone Sodium 1 gm/ (Dextrose) 50 mls @ 100 mls/hr IVPB DAILY [facility] Last Admin: 06/17/18 09:30 Dose: 100 mls/hr Levalbuterol HCl (Xopenex) 0.31 mg IH RTID [facility] Last Admin: 06/17/18 08:00 Dose: 0.31 mg Metoprolol Succinate (Toprol Xl -) 100 mg PO BID [facility] Last Admin: 06/17/18 09:30 Dose: 100 mg Irrep-2-Twim Ethyl Esters (Lovaza -) 1 gm PO BID [facility] Last Admin: 06/16/18 21:53 Dose: 1 gm - Objective Vital Signs: Vital Signs Temperature 97.3 F L 06/17/18 06:00 Pulse Rate 79 06/17/18 06:00 Respiratory Rate 18 06/17/18 06:00 Blood Pressure 122/59 L 06/17/18 06:00 O2 Sat by Pulse Oximetry (%) 3 L 06/16/18 21:00 Constitutional: Yes: No Distress, Anxious Eyes: Yes: Conjunctiva Clear HENT: Yes: Normocephalic Neck: Yes: Trachea Midline Cardiovascular: Yes: Pulse Irregular, S1, S2 Respiratory: Yes: CTA Bilaterally, Diminished, Rhonchi Gastrointestinal: Yes: Normal Bowel Sounds, Soft Musculoskeletal: Yes: Back Pain Edema: Yes Edema: LLE: Trace, RLE: Trace Labs: CBC, BMP 06/17/18 07:00 06/17/18 07:00 INR, PTT INR 1.12 (0.83-1.09) H 06/07/18 16:15 Problem List - Problems (1) NAYANA (acute kidney injury) Code(s): N17.9 - ACUTE KIDNEY FAILURE, UNSPECIFIED (2) Acute on chronic systolic heart failure Code(s): I50.23 - ACUTE ON CHRONIC SYSTOLIC (CONGESTIVE) HEART FAILURE (3) Anemia Code(s): D64.9 - ANEMIA, UNSPECIFIED Qualifiers: Iron deficiency anemia type: unspecified iron deficiency (4) Atrial fibrillation with rapid ventricular response Code(s): I48.91 - UNSPECIFIED ATRIAL FIBRILLATION (5) CRF (chronic renal failure) Code(s): N18.9 - CHRONIC KIDNEY DISEASE, UNSPECIFIED (6) PNA (pneumonia) Code(s): J18.9 - PNEUMONIA, UNSPECIFIED ORGANISM (7) Acute on chronic renal failure Code(s): N17.9 - ACUTE KIDNEY FAILURE, UNSPECIFIED; N18.9 - CHRONIC KIDNEY DISEASE, UNSPECIFIED Qualifiers: Chronic kidney disease stage: stage 3 (moderate) (8) Hypertension Code(s): I10 - ESSENTIAL (PRIMARY) HYPERTENSION Qualifiers: Hypertension type: essential hypertension Qualified Code(s): I10 - Essential (primary) hypertension Assessment/Plan Patient is an 82 year old male, well known to us, with underlying CKD3-4, and history of hypertension/HCVD, GERD, CAD, Systolic dysfunction, pancreatic cyst, history of diverticulosis and persistent atrial fibrillation on Eliquis. He presented with week history of progressive cough, dyspnea, orthopnea, without chest pain, palpitations, PND or LE edema. The patient was noted to have an Acute Respiratory infection, Pneumonia. being treated with IV Azithromycin and Ceftriaxone. 1. Acute on Chronic Kidney failure in this 82 y/o male with underlying Microvascular Renal disease. The Serum Cr has improved to 2.6 mg/dL 2. The Acute renal failure 2/2 Acute hemodynamic factors related to the current cardio-pulmonary events, resulting in renal hypoperfusion. Azotemia tends to improve. Today's Serum cr 2.4 mg/dL 3. Anemia...of chronic disease. but cannot r/o blood loss anemia. Noted GI evaluation in progress. Hematology notes noted. Renal functions expected to eventually settle at his baseline. Continue Lasix. Will continue the current antibiotics. Thanks again. Mary Finley MD
[2018-06-17] MEDS ORDERED: PT OWN MED DRAWER 7, Y5N ONE ×2 (10:20→11:20)
[2018-06-17] MEDS: OMEGA-3 ACID ETHYL ESTERS (FATTY-ACIDS) 1 GM CAPSULE (FP) PO SCH (10:22)
--- NOTE | 2018-06-17 10:33 | PN ---
Progress Note, Physician History of Present Illness: Cough, dyspnea, orthopnea resolving with diuresis, 17 lbs weight loss since admission. Underwent transfusion 1 U pRBC now with stable Hgb post transfusion. Afib with improved rate-control with Toprol XL uptitration. Completing abx course. - Current Medication List Current Medications: Active Medications Allopurinol (Zyloprim -) 100 mg PO BID [facility] Last Admin: 06/17/18 09:30 Dose: 100 mg Apixaban (Eliquis -) 2.5 mg PO BID [facility] Last Admin: 06/17/18 09:30 Dose: 2.5 mg Diltiazem HCl (Cardizem Injection -) 10 mg IVPUSH Q4H PRN PRN Reason: TACHYCARDIA Furosemide (Lasix -) 20 mg PO DAILY [facility] Last Admin: 06/17/18 09:30 Dose: 20 mg Azithromycin (Zithromax 500mg Ivpb (Pre-Docked)) 500 mg in 250 mls @ 250 mls/ hr IVPB DAILY [facility] Last Admin: 06/17/18 09:30 Dose: 250 mls/hr Ceftriaxone Sodium 1 gm/ (Dextrose) 50 mls @ 100 mls/hr IVPB DAILY [facility] Last Admin: 06/17/18 09:30 Dose: 100 mls/hr Levalbuterol HCl (Xopenex) 0.31 mg IH RTID [facility] Last Admin: 06/17/18 08:00 Dose: 0.31 mg Metoprolol Succinate (Toprol Xl -) 100 mg PO BID [facility] Last Admin: 06/17/18 09:30 Dose: 100 mg Guukq-2-Elbc Ethyl Esters (Lovaza -) 1 gm PO BID [facility] Last Admin: 06/17/18 10:22 Dose: 1 gm - Objective Vital Signs: Vital Signs Temperature 97.3 F L 06/17/18 06:00 Pulse Rate 79 06/17/18 06:00 Respiratory Rate 18 06/17/18 06:00 Blood Pressure 122/59 L 06/17/18 06:00 O2 Sat by Pulse Oximetry (%) 3 L 06/16/18 21:00 Constitutional: Yes: No Distress, Calm Neck: Yes: Supple Cardiovascular: Yes: Pulse Irregular Respiratory: Yes: Regular, Diminished Gastrointestinal: Yes: Normal Bowel Sounds, Soft Edema: No Labs: CBC, BMP 06/17/18 07:00 06/17/18 07:00 INR, PTT INR 1.12 (0.83-1.09) H 06/07/18 16:15 - ....Imaging EKG: Report Reviewed (Tele: Rate-controlled afib) Problem List - Problems (1) Acute on chronic systolic heart failure Code(s): I50.23 - ACUTE ON CHRONIC SYSTOLIC (CONGESTIVE) HEART FAILURE (2) Atrial fibrillation with rapid ventricular response Code(s): I48.91 - UNSPECIFIED ATRIAL FIBRILLATION (3) Hypertensive heart disease Code(s): I11.9 - HYPERTENSIVE HEART DISEASE WITHOUT HEART FAILURE Qualifiers: Heart failure presence: with heart failure Heart failure type: combined systolic and diastolic Heart failure chronicity: acute on chronic Qualified Code(s): I11.0 - Hypertensive heart disease with heart failure; I50.43 - Acute on chronic combined systolic (congestive) and diastolic (congestive) heart failure (4) Chronic anticoagulation Code(s): Z79.01 - MCFP (CURRENT) USE OF ANTICOAGULANTS (5) Acute on chronic renal failure Code(s): N17.9 - ACUTE KIDNEY FAILURE, UNSPECIFIED; N18.9 - CHRONIC KIDNEY DISEASE, UNSPECIFIED Qualifiers: Chronic kidney disease stage: stage 3 (moderate) (6) Diverticulosis Code(s): K57.90 - DVRTCLOS OF INTEST, PART UNSP, W/O PERF OR ABSCESS W/O BLEED Qualifiers: Diverticulosis site: unspecified location Diverticulosis bleeding: diverticulosis without bleeding Qualified Code(s): K57.90 - Diverticulosis of intestine, part unspecified, without perforation or abscess without bleeding (7) Subendocardial ischemia Code(s): I24.8 - OTHER FORMS OF ACUTE ISCHEMIC HEART DISEASE Assessment/Plan Echo: 06/08/2018 Moderate decreased LVEF 35-40%, mid-distal anteroseptal, inferolateral, apical HK, normal RV size and fxn, mod LAE, mild-mod MR, mild TR , mild pulm HTN, mild JR 1.1 cm^2, MG=11 mmHG, Tr [place] Echo 11/19/2017 Normal LV size, mild LVH, moderate decreased LVEF 35-40% with HK of apex, apical septum, apical inferior, apical lateral, mid anteroseptum, mid anterolateral basal anterolateral, basal anteroseptum and basal inferolateral segments, severe LAE, mild DOE, normal RV size and fxn, mild MR, TR, [place], RVSO 32 mmHg 1. Dyspnea, orthopnea, cough referable to acute on chronic systolic heart failure and subendocardial ischemia resolving 2. Persistent atrial fibrillation with RVR on Eliquis - [id number] score of 3-4 3. Mild aortic stenosis 4. Hypertension/HCVD 5. Hyperlipidemia 6. COPD 7. Acute on CKD referable to renal hypoperfusion improving 8. 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 History of diverticular bleed PLAN: 1. Continue oral diuresis with monitoring diuretic response, renal function and electrolytes 2. Continue Eliquis 2.5 mg BID with GI protection, Metoprolol ER 100 mg BID, Lovaza 1 bid and hold Losartan pending renal function stabilization 3. Monitor hemoglobin closely and transfuse as needed maintaining hemoglobin 8.0 and above 4. Panendoscopy as outpatient 5. Complete empiric abx course, BD, O2 as needed 6. PT->SNF
[2018-06-17 11:28] LABS: ANISOCYTOSIS 3+; MACROCYTOSIS 2+; OVALOCYTE 1+; PLATELET ESTIMATE NORMAL; TEAR DROP CELLS 1+
--- NOTE | 2018-06-17 12:10 | PN ---
Progress Note, Physician History of Present Illness: pulmonary alert,feeling better,less dyspneic,-cp,-COUGH - Current Medication List Current Medications: Active Medications Allopurinol (Zyloprim -) 100 mg PO BID [facility] Last Admin: 06/17/18 09:30 Dose: 100 mg Apixaban (Eliquis -) 2.5 mg PO BID [facility] Last Admin: 06/17/18 09:30 Dose: 2.5 mg Diltiazem HCl (Cardizem Injection -) 10 mg IVPUSH Q4H PRN PRN Reason: TACHYCARDIA Furosemide (Lasix -) 20 mg PO DAILY [facility] Last Admin: 06/17/18 09:30 Dose: 20 mg Azithromycin (Zithromax 500mg Ivpb (Pre-Docked)) 500 mg in 250 mls @ 250 mls/ hr IVPB DAILY [facility] Last Admin: 06/17/18 09:30 Dose: 250 mls/hr Ceftriaxone Sodium 1 gm/ (Dextrose) 50 mls @ 100 mls/hr IVPB DAILY [facility] [place] Last Admin: 06/17/18 09:30 Dose: 100 mls/hr Levalbuterol HCl (Xopenex) 0.31 mg IH RTID [facility] Last Admin: 06/17/18 08:00 Dose: 0.31 mg Metoprolol Succinate (Toprol Xl -) 100 mg PO BID [facility] Last Admin: 06/17/18 09:30 Dose: 100 mg Bqwfe-6-Mcxd Ethyl Esters (Lovaza -) 1 gm PO BID [facility] [place] Last Admin: 06/17/18 10:22 Dose: 1 gm - Objective Vital Signs: Vital Signs Temperature 97.8 F 06/17/18 10:00 Pulse Rate 74 06/17/18 10:00 Respiratory Rate 18 06/17/18 10:00 Blood Pressure 114/60 06/17/18 10:00 O2 Sat by Pulse Oximetry (%) 94 L 06/17/18 09:00 Constitutional: Yes: Well Nourished, Calm Eyes: Yes: WNL HENT: Yes: WNL Neck: Yes: WNL Cardiovascular: Yes: Pulse Irregular, S1, S2 Respiratory: Yes: Rales (bilateral crackles) Gastrointestinal: Yes: Normal Bowel Sounds, Soft Extremities: Yes: WNL Edema: No Labs: CBC, BMP 06/17/18 07:00 06/17/18 07:00 INR, PTT INR 1.12 (0.83-1.09) H 06/07/18 16:15 Problem List - Problems (1) Acute on chronic systolic heart failure Code(s): I50.23 - ACUTE ON CHRONIC SYSTOLIC (CONGESTIVE) HEART FAILURE (2) Anemia Code(s): D64.9 - ANEMIA, UNSPECIFIED Qualifiers: Iron deficiency anemia type: unspecified iron deficiency (3) Atrial fibrillation with rapid ventricular response Code(s): I48.91 - UNSPECIFIED ATRIAL FIBRILLATION (4) Chronic anticoagulation Code(s): Z79.01 - USP (CURRENT) USE OF ANTICOAGULANTS (5) Demand ischemia Code(s): I24.8 - OTHER FORMS OF ACUTE ISCHEMIC HEART DISEASE (6) Acute on chronic renal failure Code(s): N17.9 - ACUTE KIDNEY FAILURE, UNSPECIFIED; N18.9 - CHRONIC KIDNEY DISEASE, UNSPECIFIED Qualifiers: Chronic kidney disease stage: stage 3 (moderate) (7) Altered mental status Code(s): R41.82 - ALTERED MENTAL STATUS, UNSPECIFIED Qualifiers: Altered mental status type: disorientation Qualified Code(s): R41.0 - Disorientation, unspecified Assessment/Plan IMP DYSPNEA ACUTE ON CHRONIC CHF improving LV SYSTOLIC DYSFUNCTION AFIB BRONCHITIS PULMONARY NODULES ACUTE ON CHRONIC KIDNEY DISEASE SUB-ENDOCARDIAL ISCHEMIA ANEMIA HTN HLD PLAN CONTINUE LASIX O2 INHALED BRONCHODILATORS DAILY WT MONITOR LYTES,RENAL FUNCTION MONITOR H+H NORMAL TRANSFUSION THRESHOLD F/U CHEST CT [address] HULL Problem List - Problems (1) Acute on chronic systolic heart failure Code(s): I50.23 - ACUTE ON CHRONIC SYSTOLIC (CONGESTIVE) HEART FAILURE (2) Anemia Code(s): D64.9 - ANEMIA, UNSPECIFIED Qualifiers: Iron deficiency anemia type: unspecified iron deficiency (3) Atrial fibrillation with rapid ventricular response Code(s): I48.91 - UNSPECIFIED ATRIAL FIBRILLATION (4) Chronic anticoagulation Code(s): Z79.01 - OTA (CURRENT) USE OF ANTICOAGULANTS (5) Demand ischemia Code(s): I24.8 - OTHER FORMS OF ACUTE ISCHEMIC HEART DISEASE (6) Acute on chronic renal failure Code(s): N17.9 - ACUTE KIDNEY FAILURE, UNSPECIFIED; N18.9 - CHRONIC KIDNEY DISEASE, UNSPECIFIED Qualifiers: Chronic kidney disease stage: stage 3 (moderate) (7) Altered mental status Code(s): R41.82 - ALTERED MENTAL STATUS, UNSPECIFIED Qualifiers: Altered mental status type: disorientation Qualified Code(s): R41.0 - Disorientation, unspecified
--- NOTE | 2018-06-17 13:08 | PN ---
Physical Exam: SUBJECTIVE: Patient seen and examined; less cough; slight decrease in H/H ; OBJECTIVE: Vital Signs Period Temp Pulse Resp BP Sys/Berger Pulse Ox Last 24 Hr 97.3 F-97.8 F 72-79 18-20 97-125/52-60 3-94 GENERAL: The patient is awake, alert, and fully oriented, in no acute distress. HEAD: Normal with no signs of trauma. EYES: PERRL, extraocular movements intact, sclera anicteric, conjunctiva clear. No ptosis. ENT: Ears normal, nares patent, oropharynx clear without exudates, moist mucous membranes. NECK: Trachea midline, full range of motion, supple. LUNGS: congestion ; scattered rhonchi HEART: Regular rate and rhythm, S1, S2 without murmur, rub or gallop. ABDOMEN: Soft, nontender, nondistended, normoactive bowel sounds, no guarding, no rebound, no hepatosplenomegaly, no masses. EXTREMITIES: 2+ pulses, warm, well-perfused, no edema. NEUROLOGICAL: Cranial nerves II through XII grossly intact. Normal speech, gait not observed. PSYCH: Normal mood, normal affect. SKIN: Warm, dry, normal turgor, no rashes or lesions noted Laboratory Results - last 24 hr 06/17/18 06/17/18 07:00 07:00 WBC 6.7 RBC 3.84 L Hgb 9.9 L Hct 31.1 L MCV 81.0 MCH 25.9 MCHC 32.0 RDW 19.2 H Plt Count 205 MPV 8.7 Absolute Neuts (auto) 4.3 Neutrophils % 64.4 Neutrophils % (Manual) 62.6 Band Neutrophils % 0.0 Lymphocytes % 19.8 Lymphocytes % (Manual) 20.2 D Monocytes % 10.2 Monocytes % (Manual) 10 Eosinophils % 4.9 H Eosinophils % (Manual) 4.1 Basophils % 0.7 Basophils % (Manual) 0.0 Myelocytes % (Man) 0 D Promyelocytes % (Man) 0 Blast Cells % (Manual) 0 Nucleated RBC % 0 Metamyelocytes 0 D Hypochromia 0 Platelet Estimate Normal Platelet Comment Present Polychromasia 1+ Poikilocytosis 2+ Anisocytosis 3+ Microcytosis 1+ Macrocytosis 2+ Spherocytes 1+ Tear Drop Cells 1+ Ovalocytes 1+ Stomatocytes 1+ Sodium 143 Potassium 3.7 Chloride 108 H Carbon Dioxide 27 Anion Gap 8 BUN 46 H Creatinine 2.4 H Creat Clearance w eGFR 25.98 Random Glucose 79 Calcium 8.0 L Total Bilirubin 0.6 AST 13 L ALT 17 Alkaline Phosphatase 106 LD Total 230 Total Protein 5.2 L Albumin 2.9 L Active Medications Generic Name Dose Route Start Last Admin Trade Name Freq PRN Reason Stop Dose Admin Allopurinol 100 mg 06/08/18 10:00 06/17/18 09:30 Zyloprim - PO 100 mg BID PRISCILLA Administration Apixaban 2.5 mg 06/07/18 22:00 06/17/18 09:30 Eliquis - PO 2.5 mg BID PRISCILLA Administration Diltiazem HCl 10 mg 06/07/18 19:07 Cardizem Injection - IVPUSH Q4H PRN TACHYCARDIA Furosemide 20 mg 06/11/18 10:00 06/17/18 09:30 Lasix - PO 20 mg DAILY PRISCILLA Administration Azithromycin 500 mg in 250 mls @ 250 mls/hr 06/08/18 10:00 06/17/18 09:30 Zithromax 500mg Ivpb (Pre-Docked) IVPB 250 mls/hr DAILY PRISCILLA Administration Ceftriaxone Sodium 1 gm/ 50 mls @ 100 mls/hr 06/08/18 10:00 06/17/18 09:30 Dextrose IVPB 100 mls/hr DAILY PRISCILLA Administration Levalbuterol HCl 0.31 mg 06/16/18 14:00 06/17/18 08:00 Xopenex IH 0.31 mg RTID PRISCILLA Administration Metoprolol Succinate 100 mg 06/11/18 10:52 06/17/18 09:30 Toprol Xl - PO 100 mg BID PRISCILLA Administration Mhpbx-2-Dxbh Ethyl Esters 1 gm 06/08/18 10:00 06/17/18 10:22 Lovaza - PO 1 gm BID PRISCILLA Administration Chest CT: Impression: Bibasal atelectatic changes with fine nodularity, right more than left likely post inflammatory/ infectious. There are also faint nodules in the right up per and middle lobe measuring up to 5 mm which are nonspecific. A follow-up CT scan of the chest within one month would be helpful for further evaluation. No gross focal infiltrates identified. Mild to moderate cardiomegaly. A couple of low-attenuation densities in the liver likely representing cysts. Please correlate with liver ultrasound. Nonvisualization of the gallbladder. Dilatation of the common hepatic and common bile duct measuring up to 1.5 cm. Correlate clinically for further evaluation. Bilateral renal cortical atrophy. Large exophytic right renal simple cyst measuring 7.5 cm. Scattered diverticula in the colon without evidence of acute diverticulitis. 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 1.1 cm focal low-attenuation density in L3 vertebral body which is nonspecific. Cannot rule out a lytic lesion. Correlate clinically for further evaluation. If clinically indicated correlation with MRI of the lumbar spine could be obtained. ASSESSMENT/PLAN: This is a 82 year old male with afib, copd, chf, ckd, anemia, who presented with confusion, found to be in rapid atrial fibrillation, acute kidney failure, acute CHF, hx of prostate CA,we were called to evaluate patient for anemia. Patient presented with hemoglobin of 8.4 that decreased to 7.5; s/p 1UPRB and venofer. Microcytic anemia possible from chronic GI bleed; iron def anemia. He was also found to have cyst on pancreas. Iron def. anemia possible acute bood loss anemia Pancreatic cysts Toponemia; likely demand ischemia Acute kidney failure Acute on chronic chf Atrial fib RVR dementia vs delirium? hx COPD hx of prostate CA -Infection with ineffective erythropoiesis; -possible actue blood loss anemia vs hemolysis; due to elevated corrected retic count : needs GI follow up or re consult -iron deficiency anemia; consistent with iron def anemia -CT report noted; as above; lung nodules; repeat chest CT in 6weeks -s/p venofer ; cont iron supp -hemoglobin electrophoresis for anemia pending -spep /upep ; immunoglobulins ans immunofixation pending ; MDS w/u for AG ratio >1 -need to eval pancreatic cyst and dilated CBD; cannot due MRI due to NAYANA; -lopez endoscopy as per GI; -cont AC for now; will need to hold eliqus for 3 days prior to endoscopy due to renal disease Visit type - Emergency Visit Emergency Visit: Yes ED Registration Date: 06/07/18 Care time: The patient presented to the Emergency Department on the above date and was hospitalized for further evaluation of their emergent condition. - New Patient This patient is new to me today: No - Critical Care Critical Care patient: No
[2018-06-17 13:39] LABS: HGB SOLUBILITY Negative (Negative); Hgb C 0 % (0.0); Hgb F 0 % (0.0-2.0); Hgb S 0 % (0.0)
[2018-06-17 14:12] VITALS: BP 103/56; PULSE 96; TEMP 98.3
--- NOTE | 2018-06-17 19:24 | DS ---
Physical Examination Vital Signs: Vital Signs Temperature 98.3 F 06/17/18 14:12 Pulse Rate 96 H 06/17/18 14:12 Respiratory Rate 18 06/17/18 14:12 Blood Pressure 103/56 L 06/17/18 14:12 O2 Sat by Pulse Oximetry (%) 94 L 06/17/18 09:00 Findings/Remarks: less SOB less cough O2 sat<90% with exercise consults appreciated d/w pt and son Sergio about going to SNF for PT rehab they agreed Constitutional: Yes: No Distress, Calm Eyes: Yes: Conjunctiva Clear HENT: Yes: Atraumatic Neck: Yes: Supple Cardiovascular: Yes: Regular Rate and Rhythm Respiratory: Yes: CTA Bilaterally Gastrointestinal: Yes: Soft. No: Tenderness Renal/: No: CVA Tenderness - Left, CVA Tenderness - Right Musculoskeletal: No: Joint Stiffness, Joint Swelling Extremities: No: Cold, Cool, Cyanosis Edema: No Integumentary: No: Rash, Venous Stasis Changes Neurological: Yes: WNL, Alert, Oriented ...Motor Strength: WNL Psychiatric: Yes: WNL, Alert, Oriented. No: Agitated, Suicidal Ideation Labs: CBC, BMP 06/17/18 07:00 06/17/18 07:00 Discharge Summary Reason For Visit: PNEUMONIA Current Active Problems NAYAAN (acute kidney injury) (Acute) Acute on chronic systolic heart failure (Acute) Anemia (Acute) Atrial fibrillation with rapid ventricular response (Acute) CRF (chronic renal failure) (Acute) Chronic anticoagulation (Acute) Colon polyps (Acute) Community acquired pneumonia (Acute) Demand ischemia (Acute) Hypertensive heart disease (Acute) Hypokalemia (Acute) IPMN (intraductal papillary mucinous neoplasm) (Acute) PNA (pneumonia) (Acute) Subendocardial ischemia (Acute) Procedures: Principal: 82 YOM HTN CHF ASHD CRF prostate CA admitted with SOB cough and URI Other Procedures: IV antibiotics; nebs; O2 NC; seen by pulmonary, cardiology;. anemia seen by GI and heme; ARF seen by renal Hospital Course: improved with above; still hypoxic with exercise and generally weak - to go to SNF for 1-2 weeks f/u as advised see DC instructions dw pt and son Condition: Stable - Instructions Diet, Activity, Other Instructions: f/u heme onc dr Navarro and dr Smith for h/o prostate CA, L3 lesion - spine MRI outpt repeat CAP CT in 1-2 months pulmonary and cardiology f/u renal and f/u; renal US f/u in 3-6 months for renal cyst liver US f/u cysts in 6 months anemia w/u per GI and heme onc outpt (EGD, colonoscopy, bone marrow biopsy) if pt agrees PCP and labs f/u in 1-2 weeks falls PFX RTER if worse or recurrent Referrals: Neville Gates MD [Primary Care Provider] - Leon Varghese MD [Staff Physician] - Jose Pan MD [Staff Physician] - Brent Navarro MD [Staff Physician] - Oziel Pineda MD [Staff Physician] - Disposition: [facility]ILITY - Home Medications Comprehensive Discharge Medication List: Ambulatory Orders Allopurinol [Zyloprim -] 100 mg PO BID 12/28/12 Chlorthalidone [Hygroton -] 25 mg PO BID 12/28/12 Metoprolol Succinate [Toprol XL -] 25 mg PO BID 12/28/12 [place]-3 Acid Ethyl Esters [Lovaza -] 1 tab PO BID 12/28/12 Amlodipine/Atorvastatin [Caduet 10 mg-10 mg Tablet] 20 mg PO DAILY 08/09/17 Dronedarone HCl [Multaq] 400 mg PO DAILY 08/09/17
== END 2018-06-17 21:58 | DRG 291 ==
LOC: JER 15:11 → JERBED 18:07 → J4S 06-08 23:02
PROVIDERS: ADMIT Specialist; ATTEND Specialist
PROC: 30233N1 Transfusion of Nonautologous Red Blood Cells into Peripheral Vein, Percutaneous Approach (ICD-10-PCS; principal; 2018-06-09)
DX: I13.0 Hypertensive heart and chronic kidney disease with heart failure and stage 1 through stage 4 chronic kidney disease, or unspecified chronic kidney disease (principal); I50.23 Acute on chronic systolic (congestive) heart failure; J18.9 Pneumonia, unspecified organism; N17.9 Acute kidney failure, unspecified; I24.8 Other forms of acute ischemic heart disease; J98.11 Atelectasis; I48.1 Persistent atrial fibrillation; K86.2 Cyst of pancreas; I48.91 Unspecified atrial fibrillation; M10.9 Gout, unspecified; K57.90 Diverticulosis of intestine, part unspecified, without perforation or abscess without bleeding; J40 Bronchitis, not specified as acute or chronic; M19.90 Unspecified osteoarthritis, unspecified site; E78.00 Pure hypercholesterolemia, unspecified; K63.5 Polyp of colon; I35.0 Nonrheumatic aortic (valve) stenosis; N18.3 Chronic kidney disease, stage 3 (moderate); D50.0 Iron deficiency anemia secondary to blood loss (chronic); R91.8 Other nonspecific abnormal finding of lung field; D63.8 Anemia in other chronic diseases classified elsewhere; Z79.01 Long term (current) use of anticoagulants; Z85.828 Personal history of other malignant neoplasm of skin; Z85.46 Personal history of malignant neoplasm of prostate; Z87.891 Personal history of nicotine dependence
CPT/HCPCS: 36415; 36430; 36511; 71045-TC-FY; 71250-TC; 74176-TC; 76705-TC; 80048; 80053; 81003; 81015; 82009; 82550; 82553; 82607; 82728; 82747; 82784; 82803; 82977; 83010; 83021; 83516; 83540; 83550; 83615; 83735; 83880; 84155; 84165; 84439; 84443; 84484; 85014; 85025; 85027; 85044; 85610; 85660; 85730; 86140; 86301; 86850; 86900; 86901; 86922; 87040; 87086; 87804; 93005; 93010; 93306-TC; 94761; 97116-GP; 97161-GP; 99285-25; J1756; P9038; P9058

== ENCOUNTER 2018-07-26 10:10 | Emergency (ER) | payer OTHER ==
--- NOTE | 2018-07-26 10:14 | PDOC ---
Attending Attestation - Resident Resident Name: Jose Angel Caro - ED Attending Attestation I have performed the following: I have examined & evaluated the patient, The case was reviewed & discussed with the resident, I agree w/resident's findings & plan, Exceptions are as noted - HPI HPI: 07/26/18 10:17 82y M hx of HTN, COPD, Afib on eliquis, ckd, recent hospitalization for PNA had called EMS this mrsanya as he woke up and found his missing. His has a hx of dementia but has last year. Per aide, the pt has been doing well, eating/drinking, and acting at his baseline. Notes sometimes the pt does have moments of forgetfullness, and had was heard asking for his last week. Pt has no current complaints including fever/chills, cough, cp, sob, abd pain, disyruai, diarrhea, melena. GENERAL: The patient is awake, alert, and oriented x2, Nontoxic - in no acute distress. HEAD: Normocephalic, atraumatic. EYES: extraocular movements intact, sclera anicteric, conjunctiva clear. ENT: Normal voice, Moist mucous membranes. NECK: Normal range of motion, supple LUNGS: Breath sounds equal, clear to auscultation bilaterally. No wheezes, no rhonchi, no rales. HEART: Regular rate and rhythm, normal S1 and S2 without murmur, rub or gallop. ABDOMEN: Soft, nontender, normoactive bowel sounds. No guarding, no rebound. . No CVA tenderness EXTREMITIES: Normal range of motion, trace edema. neg homans and no calf tenderness NEUROLOGICAL: No facial assymetry, Normal speech, movng all4 extrmities spontaneously and symmetrically PSYCH: Normal mood, normal affect. SKIN: Warm, Dry, normal turgor, - Physicial Exam PE: 07/29/18 00:14 see above - Medical Decision Making 07/26/18 12:01 pts lab work unremarkble no signs of UTI cxr clear dw family and PMD suspect just a moment of forgetfulness pt has fu appointment with PMD tomorrow return percauations were discussed Heart Score/ECG Review - ECG Impressions Comment:: 07/26/18 12:02 Twelve-lead EKG was performed and reviewed by me. irregularly irregular rate of 89 TWI in V5 and V6 in strain patter, present on previous ekg in 05/2018
--- NOTE | 2018-07-26 10:31 | PDOC ---
History of Present Illness - General Stated Complaint: "FORGETFUL" Time Seen by Provider: 07/26/18 10:13 History Source: Patient Exam Limitations: No Limitations - History of Present Illness Initial Comments: 07/26/18 10:24 Pastient is an 82M with history of HTN, COPD, afib (on eliquis), CKD here today with increased forgetfulness. EMS reports that they were called in for " possible Alzheimer's". EMS reports they spoke to [place] ([phone]) who stated that the patient had been confused speaking to his that has . Patient has no acute complaints. Denies fevers, chills, nausea, vomiting. Denies chest pain, shortness of breath, abdominal pain, and dysuria. Patient denies medical problems other than HTN, states that he's only been hospitalized for HTN in the past. Chart review shows a recent admission for pneumonia with discharge to a SNF in May of 2018. PCP: Yajaira Addendum: program aide states that the patient called 911 thinking that his was alive. The police responded and sent him in for medical evaluation. Past History - Past Medical History Allergies/Adverse Reactions: Allergies Allergy/AdvReac Type Severity Reaction Status Date / Time No Known Allergies Allergy Verified 07/26/18 10:11 Home Medications: Ambulatory Orders Chlorthalidone [Hygroton -] 25 mg PO DAILY 12/28/12 Metoprolol Succinate [Toprol XL -] 25 mg PO BID 12/28/12 [place]-3 Acid Ethyl Esters [Lovaza -] 1 tab PO BID 12/28/12 Apixaban [Eliquis] 2.5 mg PO DAILY 07/26/18 Ascorbic Acid [Vitamin C] 1,000 mg PO DAILY 07/26/18 Cyanocobalamin [Vitamin B12 -] 1,000 mcg PO DAILY 07/26/18 Doxazosin Mesylate 4 mg PO DAILY 07/26/18 Losartan Potassium 50 mg PO DAILY 07/26/18 Vitamin E 1,000 unit PO DAILY 07/26/18 Anemia: No Asthma: No Cancer: Yes (SKIN, PROSTATE) Cardiac Disorders: Yes (ATRIAL FIBRILLATION) CVA: No COPD: Yes CHF: No Dementia: No Diabetes: No GI Disorders: No Disorders: Yes HTN: Yes Hypercholesterolemia: Yes Liver Disease: No Seizures: No Thyroid Disease: No - Surgical History Appendectomy: Yes Cholecystectomy: Yes - Suicide/Smoking/Psychosocial Hx Smoking History: Former smoker Have you smoked in the past 12 months: No Number of Cigarettes Smoked Daily: 20 If you are a former smoker, when did you quit?: 20 YRS AGO Hx Alcohol Use: Yes (rare beer on holidays) Drug/Substance Use Hx: No Substance Use Type: None Hx Substance Use Treatment: No Review of Systems - Review of Systems Able to Perform ROS?: Yes Comments:: 07/26/18 10:34 GENERAL/CONSTITUTIONAL: No fever or chills. No weakness. HEAD, EYES, EARS, NOSE AND THROAT: No change in vision. No ear pain or discharge. No sore throat. CARDIOVASCULAR: No chest pain or shortness of breath RESPIRATORY: No cough, wheezing, or hemoptysis. GASTROINTESTINAL: No nausea, vomiting, diarrhea or constipation. GENITOURINARY: No dysuria, frequency, or change in urination. MUSCULOSKELETAL: No joint or muscle swelling or pain. No neck or back pain. SKIN: No rash NEUROLOGIC: No headache, vertigo, loss of consciousness, or change in strength/ sensation. ENDOCRINE: No increased thirst. No abnormal weight change HEMATOLOGIC/LYMPHATIC: No anemia, easy bleeding, or history of blood clots. ALLERGIC/IMMUNOLOGIC: No hives or skin allergy. *Physical Exam - Physical Exam Comments: 07/26/18 10:35 GENERAL: Awake, alert, and oriented x2 (year -2018), in no acute distress HEAD: No signs of trauma, normocephalic, atraumatic EYES: PERRLA, EOMI, sclera anicteric, conjunctiva clear ENT: Auricles normal inspection, hearing grossly normal, nares patent, oropharynx clear without exudates. Moist mucosa NECK: Normal ROM, supple, no lymphadenopathy, JVD, or masses LUNGS: No distress, speaks full sentences, clear to auscultation bilaterally HEART: Regular rate and rhythm, normal S1 and S2, no murmurs, rubs or gallops, peripheral pulses normal and equal bilaterally. ABDOMEN: Soft, nontender, normoactive bowel sounds. No guarding, no rebound. No masses EXTREMITIES: Normal inspection, Normal range of motion, no edema. No clubbing or cyanosis. NEUROLOGICAL: Cranial nerves II through XII grossly intact. Normal speech, normal gait, no focal sensorimotor deficits SKIN: Warm, Dry, normal turgor, no rashes or lesions noted. ED Treatment Course - LABORATORY CBC & Chemistry Diagram: 07/26/18 10:49 07/26/18 10:49 - RADIOLOGY Radiology Studies Ordered: Category Date Time Status HEAD CT WITHOUT CONTRAST [CT] Stat CT Scan 07/26/18 10:16 Ordered CHEST PA & LAT [RAD] Stat Radiology 07/26/18 10:15 Ordered Medical Decision Making - Medical Decision Making 07/26/18 10:38 Patient is 82M with history of HTN, COPD, afib (on eliquis), CKD here today with altered mental status. Normal vitals. Normal exam. DDx includes, but is not limited to: uti, pneumonia, dementia, depression. Will evaluate with cbc, cmp, trop, ua/uc, cxr, ekg, head ct. EKG shows afib with LBBB pattern. No st elevations. ST depressions in V4-V6, similar to prior EKG. No significant t wave abnormalities. 07/26/18 11:37 CBC normal. CMP shows baseline CKD. Trop neg. CT head deferred, patient had normal CT two weeks ago. CXR clear. UA negative. Patient's daughter in law contacted ([phone]), case discussed, agrees with plan to discharge with follow up with Dr Gates. Will discharge home with PCP follow up and return precautions. Patient has private nurse at bedside, will be discharged into her care. *DC/Admit/Observation/Transfer Diagnosis at time of Disposition: Confusion - Discharge Dispostion Disposition: HOME Condition at time of disposition: Good Decision to Admit order: No - Referrals - Patient Instructions Additional Instructions: You were evaluated in the ED for confusion, we found no medical cause for your confusion. Please follow up with your PCP this week for further evaluation of your confusion. Please return to the ED if you have any new, worsening or concerning symptoms, especially fever, chest pain and shortness of breath. - Post Discharge Activity
[2018-07-26 11:08] LABS: BASO % 1.1 % (0-2.0); EOS % 3.9 % (0-4.5); HEMATOCRIT 34.7 % (35.4-49); HEMOGLOBIN 11.2 GM/dl (11.7-16.9); LYMPH % 28.4 % (8-40); MCH 29.2 pg (25.7-33.7); MCHC 32.2 g/dl (32.0-35.9); MEAN CELL VOLUME 90.4 fl (80-96); MEAN PLT VOLUME 8.7 fl (7.5-11.1); MONO % 8.5 % (3.8-10.2); NEUT % 58.1 % (42.8-82.8); PLATELET COUNT 232 K/MM3 (134-434); RBC 3.84 M/mm3 (4.00-5.60); RDW 28.3 % (11.9-15.9); WHITE BLOOD COUNT 5.6 K/mm3 (4.0-10.8)
[2018-07-26 11:18] LABS: ADD RBC MORPHOLOGY YES
[2018-07-26 11:20] LABS: ALBUMIN 3.7 g/dl (3.4-5.0); ALK PHOS 119 U/L (45-117); ANION GAP 6 MMOL/L (8-16); BLOOD UREA NITROGEN 29 mg/dl (7-18); CALCIUM 8.9 mg/dl (8.5-10); CHLORIDE 108 mmol/L (98-107); CO2 25 mmol/L (21-32); CREATININE 2.1 mg/dl (0.55-1.3); GLUCOSE,RANDOM 90 mg/dl (74-106); POTASSIUM 3.5 mmol/L (3.5-5.1); SGOT/AST 22 U/L (15-37); SGPT/ALT 18 U/L (13-61); SODIUM 139 mmol/L (136-145); TOT PROT 5.9 g/dl (6.4-8.2)
[2018-07-26 11:23] LABS: INR 1.11 (0.82-1.09); PROTHROMBIN TIME (PATIENT) 12.4 SEC (10.2-13.0)
--- NOTE | 2018-07-26 11:23 | EKG ---
Test Reason : Blood Pressure : / mmHG Vent. Rate : 089 BPM Atrial Rate : 093 BPM P-R Int : 000 ms QRS Dur : 162 ms QT Int : 436 ms P-R-T Axes : 000 -29 146 degrees QTc Int : 530 ms ATRIAL FIBRILLATION LEFT BUNDLE BRANCH BLOCK ABNORMAL ECG WHEN COMPARED WITH ECG OF 07-JUN-2018 15:50, T WAVE VARIATION VENT. RATE HAS DECREASED Confirmed by DANAY SPENCER, VERONICA ([id number]) on 07/26/2018 11:22:43 AM Referred By: JB ANDRADE Confirmed By:VERONICA JON MD
[2018-07-26 12:12] VITALS: BP 129/75; PULSE 87
[2018-07-26 12:13] VITALS: TEMP 97.9
[2018-07-26 13:11] LABS: ANISOCYTOSIS 2+; MACROCYTOSIS 1+
[2018-07-26 13:15] LABS: OVALOCYTE 1+; PLATELET ESTIMATE ADEQUATE; TEAR DROP CELLS 1+
== END 2018-07-26 12:05 | disposition home or self-care (01) ==
LOC: FER 10:10 → SUPCPDRO 10:10 → FER 12:05
DX: R41.0 Disorientation, unspecified (principal); J44.9 Chronic obstructive pulmonary disease, unspecified; I48.91 Unspecified atrial fibrillation; Z79.01 Long term (current) use of anticoagulants; I12.9 Hypertensive chronic kidney disease with stage 1 through stage 4 chronic kidney disease, or unspecified chronic kidney disease; N18.9 Chronic kidney disease, unspecified
CPT/HCPCS: 36415; 71046-TC-FY; 80053; 81003; 83735; 84484; 85025; 85610; 87086; 87186; 93005; 99284-25